=== PATIENT | female | born 1940 | race Caucasian/White ===

== ENCOUNTER 2017-03-10 13:02 | Emergency (ER) ==
--- NOTE | 2017-03-10 13:14 | ED.PDOC ---
General ED Provider: Dr. NORTH PAREDES Chief Complaint: Earache Stated Complaint: ear pain left, denatl pain Time Seen by Physician: 01:05 Exam Limitations: No limitations Primary Care Provider: AUSTIN TELLES Nursing and Triage Documentation Reviewed and Agree: Yes EENT Complaint Exam - Dental/Oral Complaint/Exam Mechanism of Injury: No known trauma Onset/Duration: 1 day tooth broke off Symptoms Are: Still present Timing: Constant Initial Severity: Moderate Character: Reports: Aching, Throbbing Aggravating: Reports: Heat, Cold, Chewing Alleviating: Reports: None Associated Signs and Symptoms: Denies: Swelling, Discharge, Fever, Foul odor, Foul taste in mouth Related History: Reports: Similar episode Cardiac Risk Factors: Reports: None Dental/Oral Surgical History: Reports: None Tooth Findings: Present: Gross caries Cervical Lymphadenopathy Present: No Facial Swelling Present: No Bleeding Present: No Oropharynx Findings: Absent: Clots, Active bleeding Septal Hematoma: No Foreign Body Present: No Dysphagia Present: No Drooling Present: No Asymmetrical Tonsillar Swelling Present: No Uvula Midline: Yes Carolin-tonsillar Fluctuence: No Trismus Present: No Palatal Petechiae Present: No Scarlatinaform Rash Present: No Teeth Picture: 1 - decay Differential Diagnoses: Dental Caries, Fractured Tooth Review of Systems - Review Of Systems Constitutional: Reports: No symptoms Eyes: Reports: No symptoms Ears, Nose, Mouth, Throat: Reports: Ear pain (left) Respiratory: Reports: No symptoms Cardiac: Reports: No symptoms GI: Reports: No symptoms : Reports: No symptoms Musculoskeletal: Reports: No symptoms Skin: Reports: No symptoms Neurological: Reports: No symptoms Endocrine: Reports: No symptoms Hematologic/Lymphatic: Reports: No symptoms All Other Systems: Reviewed and Negative Past Medical History - Past Medical History Previously Healthy: No Endocrine: Reports: Dyslipidemia Cardiovascular: Reports: CAD Respiratory: Reports: None Hematological: Reports: None Gastrointestinal: Reports: GERD Genitourinary: Reports: None Neuro/Psych: Reports: None Musculoskeletal: Reports: None Cancer: Reports: None - Surgical History General Surgical History: Reports: None - Family History Family History: Reports: None - Social History Hx Substance Use: No Physical Exam - Physical Exam Appearance: Well-appearing, No pain distress, Well-nourished Eyes: FRAN, EOMI, Conjunctiva clear ENT: Ears normal, Nose normal, Oropharynx normal Respiratory: Airway patent, Breath sounds clear, Breath sounds equal, Respirations nonlabored Cardiovascular: RRR, Pulses normal, No rub, No murmur GI/: Soft, Nontender, No masses, Bowel sounds normal, No Organomegaly Musculoskeletal: Normal strength, ROM intact, No edema, No calf tenderness Skin: Warm, Dry, Normal color Neurological: Sensation intact, Motor intact, Reflexes intact, Cranial nerves intact, Alert, Oriented Psychiatric: Affect appropriate, Mood appropriate Critical Care Note - Critical Care Note Total Time (mins): 0 Departure - Departure Time of Disposition: 13:13 Disposition: HOME SELF-CARE Discharge Problem: Pain, dental Instructions: Toothache (ED) Condition: Good Pt referred to PMD for follow-up: Yes Additional Instructions: Please call your Family Physician as soon as possible to schedule a follow-up appointment. Prescriptions: Hydrocodone/Acetaminophen [[place] 10-325 Tablet] 1 each PO Q8HR #12 tablet Azithromycin [Zithromax] 250 mg PO DIRECTED #6 tablet Allergies/Adverse Reactions: Allergies bacitracin [From Neosporin ([id number])] Adverse Reaction (Unverified 13:45) bacitracin zinc [From Neosporin ([id number])] Adverse Reaction (Unverified 13:45) neomycin sulfate [From Neosporin ([id number])] Adverse Reaction (Unverified 02/25/15 13:45) Penicillins Adverse Reaction (Unverified 02/25/15 13:45) polymyxin B [From Neosporin ([id number])] Adverse Reaction (Unverified 13:45) TAPE Adverse Reaction (Uncoded 02/25/15 13:45) Home Medications: Ambulatory Orders Amlodipine Besylate 03/01/15 Cholecalciferol (Vitamin D3) [Vitamin D] 03/01/15 Esomeprazole Magnesium [Nexium] 03/01/15 Furosemide [Lasix] 03/01/15 Lorazepam [Ativan] 03/01/15 [place]-3 Fatty Acids [Fish Oil] 03/01/15 Potassium Chloride 03/01/15 Pravastatin Sodium 03/01/15 Quinapril HCl 03/01/15 Azithromycin [Zithromax] 250 mg PO DIRECTED #6 tablet 03/10/17 Hydrocodone/Acetaminophen [[place] 10-325 Tablet] 1 each PO Q8HR #12 tablet
[2017-03-10 13:17] VITALS: BP 137/76; TEMP 98; BMI 32.8
== END 2017-03-10 13:25 | disposition home or self-care (01) ==
LOC: ED 13:02
DX: K08.89 Other specified disorders of teeth and supporting structures (principal); K02.7 Dental root caries; S02.5XXA Fracture of tooth (traumatic), initial encounter for closed fracture
CPT/HCPCS: 99282

== ENCOUNTER 2017-03-19 10:49 | Outpatient (RCR) ==
[2017-03-19 11:39] VITALS: BMI 33.7
[2017-04-05 11:40] VITALS: BP 146/58
== END 2017-04-06 ==
LOC: CAR.REHAB 10:49
PROVIDERS: ATTEND Internal Medicine
DX: Z95.1 Presence of aortocoronary bypass graft (principal)
CPT/HCPCS: 93798

== ENCOUNTER 2017-04-24 20:23 | Emergency (ER) ==
[2017-04-24 20:28] VITALS: BP 187/74; TEMP 97.2; BMI 31.8
[2017-04-24] MEDS ORDERED: CATAPRES PO STA (20:33)
[2017-04-24] MEDS ORDERED: NORVASC PO STA (20:33)
--- NOTE | 2017-04-24 21:47 | ED.PDOC ---
General ED Provider: Dr. ANNIE GUTIERREZ-ER Chief Complaint: Hypertension Stated Complaint: my bp was up--im not having chest pain or rodriguez--i had dental surgery today and my dentist told me to go to the er Time Seen by Physician: 20:25 Mode of Arrival: Walk-In Information Source: Patient Exam Limitations: No limitations Primary Care Provider: AUSTIN TELLES Nursing and Triage Documentation Reviewed and Agree: Yes Cardiovascular Complaint Exam - Hypertension Complaint/Exam Onset/Duration: 204/85 Symptoms Are: Still present Timing: Constant Reported B/P Prior to Arrival: as above Aggravating: Reports: None Alleviating: Reports: None Associated Signs and Symptoms: Reports: Anxiety, Recent stress. Denies: Chest pain, Vision changes, Headache, Numbness, Tingling, Weakness, Dizziness, Short of air, Swelling Related History: Reports: Current Fabio Inhibitors, Current Beta Lebron Recent Change in Medications: No A/V [place]: No Papilledema Present: No JVD Present: No Carotid Bruit Present: No Femoral Pulses Bounding: Yes Differential Diagnoses: Hypertension Review of Systems - Review Of Systems Constitutional: Reports: No symptoms Eyes: Reports: No symptoms Ears, Nose, Mouth, Throat: Reports: No symptoms Respiratory: Reports: No symptoms Cardiac: Reports: No symptoms GI: Reports: No symptoms : Reports: No symptoms Musculoskeletal: Reports: No symptoms Skin: Reports: No symptoms Neurological: Reports: No symptoms Endocrine: Reports: No symptoms Hematologic/Lymphatic: Reports: No symptoms All Other Systems: Reviewed and Negative Past Medical History - Past Medical History Previously Healthy: No Endocrine: Reports: Dyslipidemia Cardiovascular: Reports: CAD Respiratory: Reports: None Hematological: Reports: None Gastrointestinal: Reports: GERD Genitourinary: Reports: None Neuro/Psych: Reports: None Musculoskeletal: Reports: None Cancer: Reports: None Last Menstrual Period: na - Surgical History General Surgical History: Reports: None - Family History Family History: Reports: None - Social History Smoking Status: Former smoker Hx Substance Use: No Alcohol Screening: None Lives: With family - Immunizations Tetanus Shot up to Date: No Physical Exam - Physical Exam Appearance: Well-appearing, No pain distress, Well-nourished Eyes: FRAN, EOMI, Conjunctiva clear ENT: Ears normal, Nose normal, Oropharynx normal Neck: Supple Respiratory: Airway patent, Breath sounds clear, Breath sounds equal, Respirations nonlabored Cardiovascular: RRR, Pulses normal, No rub, No murmur GI/: Soft Musculoskeletal: Normal strength, ROM intact, No edema, No calf tenderness Skin: Warm, Dry, Normal color Neurological: Sensation intact, Motor intact, Reflexes intact, Cranial nerves intact, Alert, Oriented Psychiatric: Affect appropriate, Mood appropriate, Anxious Re-Evaluation - Re-Evaluation Time of Re-Evaluation: 21:47 Status: Improved (bp 160/84--no chest pain or rodriguez) Vital Signs Stable: Yes Pain Level: 0 Appearance: NAD Lungs: Clear Skin: Warm and Dry Neuro: Alert and Oriented X3 CV: RRR Critical Care Note - Critical Care Note Total Time (mins): 0 Course - Course Orders, Labs, Meds: Orders Category Date Time 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] .ONCE EMERGENCY 04/24/17 20:34 Active Amlodipine Besylate [Norvasc] MEDS 04/24/17 20:33 Discontinued 2.5 mg PO ONCE STA Clonidine HCl [Catapres] MEDS 04/24/17 20:33 Discontinued 0.1 mg PO ONCE STA Medications Discontinued Medications Generic Name Dose Route Start Last Admin Trade Name Freq PRN Reason Stop Dose Admin Amlodipine Besylate 2.5 mg 04/24/17 20:33 04/24/17 20:40 Norvasc PO 04/24/17 20:34 2.5 mg ONCE STA Administration Clonidine 0.1 mg 04/24/17 20:33 04/24/17 20:40 Catapres PO 04/24/17 20:34 0.1 mg ONCE STA Administration Vital Signs: Temp Pulse Resp BP Pulse Ox 04/24/17 20:23 97.2 F L 65 16 187/74 H 94 L DAVID Risk Score DAVID Risk Score: Risk Score Odds of by 30D 0 0.1 (0.1-0.2) 1 0.3 (0.2-0.3) 2 0.4 (0.3-0.5) 3 0.7 (0.6-0.9) 4 1.2 (1.0-1.5) 5 2.2 (1.9-2.6) 6 3.0 (2.5-3.6) 7 4.8 (3.8-6.1) Departure - Departure Time of Disposition: 21:47 Disposition: HOME SELF-CARE Discharge Problem: HTN (hypertension) Qualifiers: Hypertension type: essential hypertension Qualified Code(s): I10 - Essential ( primary) hypertension Instructions: Chronic Hypertension (ED) Condition: Good Pt referred to PMD for follow-up: Yes Additional Instructions: monitor bp at home--f/u with dr espinoza office tomorrow--return if any rodriguez or chest pain Allergies/Adverse Reactions: Allergies bacitracin [From Neosporin ([id number])] Adverse Reaction (Verified 04/24/17 20:34) bacitracin zinc [From Neosporin ([id number])] Adverse Reaction (Verified 20:34) neomycin sulfate [From Neosporin ([id number]-[id number])] Adverse Reaction (Verified 20:34) Penicillins Adverse Reaction (Verified 04/24/17 20:34) polymyxin B [From Neosporin ([id number])] Adverse Reaction (Verified 20:34) TAPE Adverse Reaction (Uncoded 02/25/15 13:45) Home Medications: Ambulatory Orders Amlodipine Besylate 03/01/15 Cholecalciferol (Vitamin D3) [Vitamin D] 03/01/15 Esomeprazole Magnesium [Nexium] 03/01/15 Furosemide [Lasix] 03/01/15 Lorazepam [Ativan] 03/01/15 [place]-3 Fatty Acids [Fish Oil] 03/01/15 Potassium Chloride 03/01/15 Pravastatin Sodium 03/01/15 Quinapril HCl 03/01/15 Azithromycin [Zithromax] 250 mg PO DIRECTED #6 tablet 03/10/17 Hydrocodone/Acetaminophen [[place] 10-325 Tablet] 1 each PO Q8HR #12 tablet Disposition Discussed With: Patient
== END 2017-04-24 21:52 | disposition home or self-care (01) ==
LOC: ED 20:23
DX: I10 Essential (primary) hypertension (principal); E78.5 Hyperlipidemia, unspecified; I25.10 Atherosclerotic heart disease of native coronary artery without angina pectoris; Z98.890 Other specified postprocedural states; Z79.899 Other long term (current) drug therapy
CPT/HCPCS: 99283

== ENCOUNTER 2017-05-08 09:05 | Outpatient (RCR) ==
[2017-06-03 11:49] VITALS: BP 118/56
== END 2017-06-06 ==
LOC: CAR.REHAB 09:05
PROVIDERS: ATTEND Internal Medicine
DX: Z95.1 Presence of aortocoronary bypass graft (principal)
CPT/HCPCS: 93798

== ENCOUNTER 2017-06-07 06:47 | Outpatient (RCR) ==
[2017-06-24 11:49] VITALS: BP 118/52
== END 2017-07-07 ==
LOC: CAR.REHAB 06:47
PROVIDERS: ATTEND Internal Medicine
DX: Z95.1 Presence of aortocoronary bypass graft (principal)
CPT/HCPCS: 93798

== ENCOUNTER 2017-07-09 08:14 | Outpatient (RCR) | payer OTHER ==
[2017-08-05 11:45] VITALS: BP 136/58
== END 2017-08-07 ==
LOC: CAR.REHAB 08:14
PROVIDERS: ATTEND Internal Medicine
DX: Z95.1 Presence of aortocoronary bypass graft (principal)
CPT/HCPCS: 93798

== ENCOUNTER 2017-08-08 07:27 | Outpatient (RCR) | payer OTHER ==
[2017-08-28 11:44] VITALS: BP 128/54
== END 2017-09-04 ==
LOC: CAR.REHAB 07:27
PROVIDERS: ATTEND Internal Medicine
DX: Z95.1 Presence of aortocoronary bypass graft (principal)
CPT/HCPCS: 93798

== ENCOUNTER 2017-09-05 08:23 | Outpatient (RCR) | payer OTHER ==
[2017-09-10 13:14] VITALS: BP 138/52
== END 2017-09-10 12:30 | disposition home or self-care (01) ==
LOC: CAR.REHAB 08:23
PROVIDERS: ATTEND Internal Medicine
DX: Z95.1 Presence of aortocoronary bypass graft (principal)
CPT/HCPCS: 93798

== ENCOUNTER 2017-09-13 10:59 | Outpatient (RCR) ==
[2017-10-04 11:48] VITALS: BP 128/62
== END 2017-10-05 ==
LOC: CAR.REHAB 10:59
PROVIDERS: ATTEND Internal Medicine
DX: I25.810 Atherosclerosis of coronary artery bypass graft(s) without angina pectoris (principal)
CPT/HCPCS: 93797

== ENCOUNTER 2017-10-07 06:59 | Outpatient (RCR) ==
[2017-11-04 11:51] VITALS: BP 136/56
== END 2017-11-04 23:59 ==
LOC: CAR.REHAB 06:59
PROVIDERS: ATTEND Internal Medicine
DX: Z95.1 Presence of aortocoronary bypass graft (principal)
CPT/HCPCS: 93797; 93798

== ENCOUNTER 2017-11-05 08:27 | Outpatient (RCR) ==
[2017-11-29 11:54] VITALS: BP 126/70
== END 2017-12-05 23:59 ==
LOC: CAR.REHAB 08:27
PROVIDERS: ATTEND Internal Medicine
DX: I25.810 Atherosclerosis of coronary artery bypass graft(s) without angina pectoris (principal)
CPT/HCPCS: 93797

== ENCOUNTER 2017-12-06 07:29 | Outpatient (RCR) ==
[2018-01-03 11:52] VITALS: BP 136/62
== END 2018-01-04 23:59 ==
LOC: CAR.REHAB 07:29
PROVIDERS: ATTEND Internal Medicine
DX: I25.810 Atherosclerosis of coronary artery bypass graft(s) without angina pectoris (principal)
CPT/HCPCS: 93797

== ENCOUNTER 2018-01-06 07:20 | Outpatient (RCR) ==
[2018-02-03 11:51] VITALS: BP 138/54
== END 2018-02-04 23:59 ==
LOC: CAR.REHAB 07:20
PROVIDERS: ATTEND Internal Medicine
DX: I25.810 Atherosclerosis of coronary artery bypass graft(s) without angina pectoris (principal)
CPT/HCPCS: 93797

== ENCOUNTER 2018-02-05 07:30 | Outpatient (RCR) ==
[2018-03-07 11:42] VITALS: BP 140/58
== END 2018-03-07 23:59 ==
LOC: CAR.REHAB 07:30
PROVIDERS: ATTEND Internal Medicine
DX: I25.810 Atherosclerosis of coronary artery bypass graft(s) without angina pectoris (principal)
CPT/HCPCS: 93797

== ENCOUNTER 2018-03-11 09:18 | Outpatient (RCR) ==
[2018-04-04 11:40] VITALS: BP 140/56
== END 2018-04-06 23:59 ==
LOC: CAR.REHAB 09:18
PROVIDERS: ATTEND Internal Medicine
DX: I25.810 Atherosclerosis of coronary artery bypass graft(s) without angina pectoris (principal)
CPT/HCPCS: 93797

== ENCOUNTER 2018-04-07 07:33 | Outpatient (RCR) ==
[2018-05-05 11:42] VITALS: BP 124/56
== END 2018-05-07 23:59 ==
LOC: CAR.REHAB 07:33
PROVIDERS: ATTEND Internal Medicine
DX: I25.810 Atherosclerosis of coronary artery bypass graft(s) without angina pectoris (principal)
CPT/HCPCS: 93797

== ENCOUNTER 2018-04-29 07:17 | Day surgery (SDC) | payer OTHER ==
[2018-04-29] MEDS ORDERED: LIDOCAINE 1% 20 ML MDV ID STA (07:35)
[2018-04-29] MEDS ORDERED: DIPRIVAN 20 ML VIAL IVP ONE (08:43)
[2018-04-29] MEDS ORDERED: ROBINOL ONE (08:43)
[2018-04-29] MEDS ORDERED: SUBLIMAZE ONE (08:43)
[2018-04-29 16:05] VITALS: BP 128/66; TEMP 98.5
--- NOTE | 2018-04-30 10:28 | OP ---
INDICATIONS FOR PROCEDURE: 78-year-old female presents for surveillance colonoscopy exam. She last had a colonoscopy finding eight adenomatous polyps three years ago. MEDICATIONS: SEE ANESTHESIA NOTES. PROCEDURE: COLONOSCOPY, SNARE POLYPECTOMY. REPORT: The risks, benefits, alternatives and limitations were discussed in detail with the patient. Informed consent was obtained. After adequate sedation was achieved, a digital rectal exam revealed good tone, no masses. The colonoscope was introduced into the rectum and advanced under direct visual guidance to the cecum. The cecum was identified by the appendiceal orifice and IC valve. I then slowly withdrew the scope in a circumferential manner examining the mucosa quite carefully. I looked on the proximal and distal side of folds and flexures as best as possible. I retroflexed the scope in the right colon and left colon to increase visualization. In the mid sigmoid colon there was a diminutive 4 to 5 mm polyp that I destroyed using a snare. There was moderate amount of large and small mouth diverticula scattered throughout the sigmoid colon. No other abnormalities were noted including on retroflex view of the anal canal. The prep was good. Withdrawal time is 11 minutes and 7 seconds. The patient tolerated the procedure well with stable vital signs and pulse oximetry throughout. IMPRESSION: 1. DIMINUTIVE POLYP DESTROYED 2. DIVERTICULOSIS RECOMMENDATIONS: 1. High fiber diet. 2. Office visit as needed. 3. Colonoscopy examination again in 5 years if she is clinically well, sooner if signs or symptoms would indicate otherwise. CC: DR. ELFEGO SMITH
== END 2018-04-29 09:22 | disposition home or self-care (01) ==
LOC: SURG 07:17
PROVIDERS: ATTEND Internal Medicine Gastroenterology
DX: Z86.010 Personal history of colon polyps (principal); K63.5 Polyp of colon
CPT/HCPCS: 00812; G0105; 93005; 93010

== ENCOUNTER 2018-06-09 07:13 | Outpatient (RCR) ==
[2018-07-07 11:44] VITALS: BP 130/54
== END 2018-07-07 23:59 ==
LOC: CAR.REHAB 07:13
PROVIDERS: ATTEND Internal Medicine
DX: I25.810 Atherosclerosis of coronary artery bypass graft(s) without angina pectoris (principal)
CPT/HCPCS: 93797; 93798

== ENCOUNTER 2018-07-09 07:52 | Outpatient (RCR) ==
[2018-08-01 11:44] VITALS: BP 124/52
== END 2018-08-07 23:59 ==
LOC: CAR.REHAB 07:52
PROVIDERS: ATTEND Internal Medicine
DX: I25.810 Atherosclerosis of coronary artery bypass graft(s) without angina pectoris (principal)
CPT/HCPCS: 93797

== ENCOUNTER 2018-08-08 06:57 | Outpatient (RCR) ==
[2018-09-01 11:45] VITALS: BP 100/50
== END 2018-09-04 23:59 ==
LOC: CAR.REHAB 06:57
PROVIDERS: ATTEND Internal Medicine
DX: I25.810 Atherosclerosis of coronary artery bypass graft(s) without angina pectoris (principal)
CPT/HCPCS: 93797

== ENCOUNTER 2018-09-05 06:37 | Outpatient (RCR) ==
[2018-09-29 11:49] VITALS: BP 126/60
== END 2018-10-05 23:59 ==
LOC: CAR.REHAB 06:37
PROVIDERS: ATTEND Internal Medicine
DX: I25.810 Atherosclerosis of coronary artery bypass graft(s) without angina pectoris (principal)
CPT/HCPCS: 93797

== ENCOUNTER 2018-10-06 08:15 | Outpatient (RCR) ==
[2018-11-03 11:43] VITALS: BP 126/54
== END 2018-11-04 23:59 ==
LOC: CAR.REHAB 08:15
PROVIDERS: ATTEND Internal Medicine
DX: I25.810 Atherosclerosis of coronary artery bypass graft(s) without angina pectoris (principal)
CPT/HCPCS: 93797

== ENCOUNTER 2018-10-27 11:53 | Outpatient (CLI) | END 2018-10-27 11:54 | disposition home or self-care (01) | LOC: RAD 11:53 | PROVIDERS: ATTEND Internal Medicine | DX: Z12.31 Encounter for screening mammogram for malignant neoplasm of breast (principal) ==

== ENCOUNTER 2018-11-05 07:44 | Outpatient (RCR) ==
[2018-12-05 11:47] VITALS: BP 130/60
== END 2018-12-05 23:59 ==
LOC: CAR.REHAB 07:44
PROVIDERS: ATTEND Internal Medicine
DX: I25.810 Atherosclerosis of coronary artery bypass graft(s) without angina pectoris (principal)
CPT/HCPCS: 93797

== ENCOUNTER 2019-02-05 08:39 | Outpatient (RCR) ==
[2019-03-02 11:52] VITALS: BP 138/62
== END 2019-03-07 23:59 ==
LOC: CAR.REHAB 08:39
PROVIDERS: ATTEND Internal Medicine
DX: I25.810 Atherosclerosis of coronary artery bypass graft(s) without angina pectoris (principal)
CPT/HCPCS: 93797

== ENCOUNTER 2022-08-07 15:51 | Inpatient (IN) ==
--- NOTE | 2022-08-07 16:03 | ED.PDOC ---
General ED Provider: Dr. 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, no loc, gcs 15, no neck pain, no bleeding, on home oxygen prn, hx obese, copd and htn Time Seen by Provider: 08/07/22 15:56 Mode of Arrival: Ambulance Information Source: Patient Primary Care Provider: AUSTIN TELLES MD Nursing and Triage Documentation Reviewed and Agree: Yes Does patient meet sepsis criteria?: No System Inflammatory Response Syndrome: Not Applicable Sepsis Protocol: For patient's 13 years and over: Temp is 96.8 and below OR 101 and greater Pulse >90 BPM Resp >20/minute Acutely Altered Mental Status Are patient's symptoms suggestive of a new infection, such as: -Pneumonia -Skin, Soft Tissue -Endocarditis -UTI -Bone, Joint Infection -Implantable Device -Acute Abdominal Infection -Wound Infection -Meningitis -Blood Stream Catheter Infection -Unknown Review of Systems Review Of Systems Constitutional: Denies Fever Eyes: Denies Vision change Ears, Nose, Mouth, Throat: Denies Epistaxis Respiratory: Denies Short of air Cardiac: Denies Chest pain GI: Denies Abdominal pain or Vomiting : Denies Frequency Musculoskeletal: Reports Joint pain Skin: Reports Bruising Neurological: Denies Cognitive dysfunction All Other Systems: Other [facility] Social History Smoking and tobacco status: Former smoker Female Reproductive History Menstrual Hx Hysterectomy: Yes (1973) Hx Tubal Ligation: No Physical Exam Physical Exam Appearance: Reports Obese Ill-appearing: None Pain Distress: Mild Eyes: Reports FRAN, EOMI and Conjunctiva clear ENT: Reports Oropharynx normal; Denies Epistaxis Neck: Supple Respiratory: Reports Airway patent and Breath sounds equal Cardiovascular: Reports RRR GI/: Reports Soft and Nontender Musculoskeletal: Reports Limited ROM and Other (tender right wrist and hips, sen and pulses intact); Denies Calf tenderness Skin: Reports Warm and Dry Neurological: Reports Alert and Oriented Psychiatric: Reports Affect appropriate Interpretation Radiology Interpretation Radiology Interpretation By: Radiologist Xray Comments: +nondispl fx right wrist, no fx hips, nap cxr Radiology Interpretation By: Radiologist Exam Interpreted: CT Scan Xray Comments: no brain bleed EKG Interpretation Time of EKG #1: 18:04 Rate: Normal Rhythm: Sinus Ectopy: PVCs Interpretation: no stemi Critical Care Note Critical Care Note Total Critical Care Time (mins): 0 Course Course Hematology/Chemistry: 08/07/22 16:12 08/07/22 16:12 Orders, Labs, Meds: Lab Review 08/07/22 08/07/22 08/07/22 16:12 16:12 16:12 WBC 6.26 RBC 4.37 Hgb 12.4 Hct 39.2 MCV 89.7 MCH 28.4 MCHC 31.6 L RDW Coeff of Cathy 15.2 H Plt Count 179 Immature Gran % (Auto) 0.3 Neut % (Auto) 75.1 Lymph % (Auto) 11.2 [place] % (Auto) 7.0 Eos % (Auto) 6.1 Baso % (Auto) 0.3 Neut # (Auto) 4.7 Lymph # (Auto) 0.7 [place] # (Auto) 0.4 Eos # (Auto) 0.4 Baso # (Auto) 0.0 Immature Gran # (Auto) 0.0 PT 10.8 INR 1.04 Puncture Site Base Excess O2 Saturation ABG pH ABG pCO2 ABG pO2 ABG HCO3 ABG Total CO2 Dung Test Hemoglobin Oxyhemoglobin Carboxyhemoglobin Total Hemoglobin FiO2 % Sodium 137.3 Potassium 3.62 Chloride 103.3 Carbon Dioxide 27.1 Anion Gap 10.52 BUN 21.5 H Creatinine 0.94 Estimated GFR (MDRD) 57.00 BUN/Creatinine Ratio 22.87 Glucose 127.4 H Lactic Acid Calcium 8.82 Total Bilirubin 0.58 AST 32.3 ALT 20.6 Alkaline Phosphatase 40.4 L Total Creatine Kinase 611.5 H CK-MB (CK-2) 3.440 H CK-MB (CK-2) % 0.5600 Troponin I 0.017 Total Protein 6.44 Albumin 3.87 Globulin 2.57 Albumin/Globulin Ratio 1.50 SARS CoV-2 RNA Rapid SARAH 08/07/22 08/07/22 08/07/22 16:12 16:15 16:15 WBC RBC Hgb Hct MCV MCH MCHC RDW Coeff of Cathy Plt Count Immature Gran % (Auto) Neut % (Auto) Lymph % (Auto) [place] % (Auto) Eos % (Auto) Baso % (Auto) Neut # (Auto) Lymph # (Auto) [place] # (Auto) Eos # (Auto) Baso # (Auto) Immature Gran # (Auto) PT INR Puncture Site Rbrach Base Excess 6.4 H O2 Saturation 89.4 L ABG pH 7.44 ABG pCO2 45.0 ABG pO2 55.0 L* ABG HCO3 30.6 H ABG Total CO2 32.0 H Dung Test Pos Hemoglobin 0.5 Oxyhemoglobin 88.0 L Carboxyhemoglobin 1.6 H Total Hemoglobin 12.5 FiO2 % 21.0 Sodium Potassium Chloride Carbon Dioxide Anion Gap BUN Creatinine Estimated GFR (MDRD) BUN/Creatinine Ratio Glucose Lactic Acid 2.41 H Calcium Total Bilirubin AST ALT Alkaline Phosphatase Total Creatine Kinase CK-MB (CK-2) CK-MB (CK-2) % Troponin I Total Protein Albumin Globulin Albumin/Globulin Ratio SARS CoV-2 RNA Rapid SARAH Negative Orders Category Date Time Status ABG DRAW REQUEST Stat CARDIO 08/07/22 15:56 Completed EKG-(ED ONLY) Stat CARDIO 08/07/22 15:56 Completed OXYGEN [ED APPLY O2] .ONCE EMERGENCY 08/07/22 15:56 Active ABG COOX Stat LAB 08/07/22 16:15 Completed CBC W/ AUTO DIFF Stat LAB 08/07/22 16:12 Completed CMP [COMPREHENSIVE METABOLIC PANEL] Stat LAB 08/07/22 16:12 Completed CPK [CREATINE KINASE] Stat LAB 08/07/22 16:12 Completed LACTIC ACID Stat LAB 08/07/22 16:12 Completed PT WITH INR Stat LAB 08/07/22 16:12 Completed SARS COV-2 RNA RAPID SARAH Stat LAB 08/07/22 16:15 Completed TROPONIN I Stat LAB 08/07/22 16:12 Completed URINALYSIS C & S IF INDICATED Stat LAB 08/07/22 17:30 Received Sodium Chloride 0.9% [Sodium Chloride] 1,000 ml MEDS 08/07/22 16:41 Discontinued IV BOLUS CHEST, 1V AP ONLY Stat RADS 08/07/22 15:[address] HEAD W/O CONTRAST Stat RADS 08/07/22 15:56 Completed PELVIS & DEEPIKA HIPS Stat RADS 08/07/22 15:56 Completed WRIST, RIGHT 3 VIEWS Stat RADS 08/07/22 15:56 Completed Medications Discontinued Medications Generic Name Dose Route Start Last Admin Trade Name Freq PRN Reason Stop Dose Admin Sodium Chloride 1,000 mls @ 1,000 mls/hr 08/07/22 16:41 08/07/22 16:57 Sodium Chloride IV 08/07/22 17:40 1,000 mls/hr BOLUS STA Administration Vital Signs: Temp Pulse Resp BP Pulse Ox 08/07/22 15:53 98.3 F 65 20 147/57 H 92 L Discharge Plan Discharge Patient Disposition: ADMITTED INPATIENT Prescriptions: No Action furosemide [Lasix] 20 MG tablet 20 mg PO DAILY esomeprazole magnesium [Nexium] 20 MG capsule,delayed release(DR/EC) 20 mg PO DAILY potassium chloride 10 MEQ tablet,ER particles/crystals 10 meq PO DAILY amlodipine 5 MG tablet 5 mg PO DAILY lorazepam [Ativan] 0.5 MG tablet 0.5 mg PO DAILY cholecalciferol (vitamin D3) [Vitamin D3] 1,000 UNIT capsule 1,000 mg PO DAILY Fish Oil 300 MG capsule 1 mg PO DAILY hydrocodone-acetaminophen [[place]] 1 EACH tablet 1 ea PO Q8HR Qty: 12 0RF Did you review [place] MACHINE FEEDER for ALL controlled substances?: Not Applicable ED Provider: SOPHIA SHEA Condition: Stable Physician Progress Note: Dr Telles advised to admit pt to hospitalist []
[2022-08-07 16:24] LABS: BASOPHILS % (AUTO) 0.3 % (0.0-3.0); EOSINOPHILS # (AUTO) 0.4 K/ul (0.0-0.7); EOSINOPHILS % (AUTO) 6.1 % (0.0-7.0); HEMATOCRIT 39.2 % (37.0-47.0); HEMOGLOBIN 12.4 g/dl (12.0-16.0); IMMATURE GRANULOCYTE % (AUTO) 0.3 % (0.0-5.0); LYMPHOCYTES # (AUTO) 0.7 K/uL (0.60-3.4); LYMPHOCYTES % (AUTO) 11.2 (10.0-50.0); MEAN CORPUSCULAR HEMOGLOBIN 28.4 pg (27.0-31.0); MEAN CORPUSCULAR HGB CONC 31.6 (31.8-35.4); MEAN CORPUSCULAR VOLUME 89.7 fl (81.0-99.0); MONOCYTES # (AUTO) 0.4 K/uL (0.4-2.0); NEUTROPHILS # (AUTO) 4.7 K/ul (2.0-6.9); NEUTROPHILS % (AUTO) 75.1 % (42.2-75.2); PLATELET COUNT 179 10^3/uL (140-440); RDW COEFFICIENT OF VARIATION 15.2 % (11.6-14.8); RED BLOOD COUNT 4.37 10^6/ul (4.20-5.40); WHITE BLOOD COUNT 6.26 K/ul (4.6-10.2)
[2022-08-07 16:26] LABS: ABG PH 7.44 (7.35-7.45); BEecf 6.4 (-2.0-3.0); COHb 1.6 (0.5-1.5); HCO3 30.6 (21-28); MetHb 0.5 (0-1.5); sO2 89.4 % (94-98); tHb 12.5 g/dl (11.7-17.4)
[2022-08-07 16:36] LABS: PROTHROMBIN TIME 10.8 SEC (9.3-11.0)
[2022-08-07 16:38] LABS: ALANINE AMINOTRANSFERASE 20.6 U/L (0-35); ALBUMIN 3.87 g/dL (3.5-5.0); ALKALINE PHOSPHATASE 40.4 U/L (53-141); ASPARTATE AMINO TRANSFERASE 32.3 U/L (14-36); BILIRUBIN,TOTAL 0.58 mg/dL (0.2-1.3); BLOOD UREA NITROGEN 21.5 mg/dL (7-17); CALCIUM 8.82 mg/dL (8.4-10.2); CARBON DIOXIDE 27.1 mmol/L (22-30.0); CHLORIDE 103.3 mmol/L (98-107); CREATINE KINASE 611.5 U/L (30-135); CREATININE 0.94 mg/dL (0.60-1.30); GLUCOSE 127.4 mg/dL (74-106); POTASSIUM 3.62 mmol/L (3.5-5.1); SODIUM 137.3 mmol/L (134.5-145); TOTAL PROTEIN 6.44 g/dL (6.3-8.2)
[2022-08-07] MEDS ORDERED: SODIUM CHLORIDE 1,000 ML IV STA (16:41)
--- NOTE | 2022-08-07 16:48 | DI ---
EXAM: CHEST RADIOGRAPH (1 VIEW) TECHNIQUE: Frontal Chest Radiograph. HISTORY: Fall. COMPARISON: Chest radiograph 01/27/2020 FINDINGS: Lines, Tubes, Devices: Postsurgical changes of median sternotomy Lungs and Pleura: No focal consolidation. No pleural effusion. No pneumothorax. No pulmonary edema . Small calcified granuloma in the right lower lobe. Cardiomediastinum: Enlarged cardiomediastinal silhouette. Mild to moderate aortic calcifications. Bones/Soft Tissues: No acute osseous abnormality. No soft tissue abnormality. Upper Abdomen: Hiatal hernia. IMPRESSION: No acute radiographic abnormality. Cardiomegaly. Hiatal hernia.
--- NOTE | 2022-08-07 16:49 | DI ---
EXAM: Pelvis AP view, right hip lateral view, left hip lateral view HISTORY: Fall, hip pain FINDINGS: No fracture or dislocation. 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 No acu te soft tissue finding. IMPRESSION: 1. No fracture or joint dislocation.
--- NOTE | 2022-08-07 16:51 | DI ---
EXAM: RIGHT WRIST, 3 VIEWS HISTORY: Fall. COMPARISON: None available. FINDINGS: There is marked diffuse demineralization which limits sensitivity for detection of a nondisplaced fra cture. Transversely oriented region of sclerosis extending through the distal radius just proximal t o the articular surface of the radiocarpal joint and along the margin of the distal radioulnar joint, concerning for a nondisplaced fracture with minimal impaction. Cortical irregularity dorsally on th e lateral view at that level related to small fragment in the region of Stew's tubercle with 2 mm d isplacement. Soft tissue swelling throughout the wrist and distal forearm with abnormal appearance o f the pronator fat pad. Capsular swelling/effusion of the radiocarpal joint. 0.4 cm well corticated ossification projects along the soft tissues at the lateral/radial aspect of the scaphoid - trapeziu m articulation and could represent heterotopic ossification/dystrophic calcification versus sequela o ld trauma or loose body. Marked degenerative change at the first carpometacarpal joint with mild deg enerative spurring at the radiocarpal and midcarpal joints. No abnormal widening of the scapholunate or lunotriquetral intervals. No lunate/perilunate dislocation. IMPRESSION: Suspected nondisplaced fracture with impaction involving the distal radius as detailed above with min imally-displaced fragment dorsally. Further assessment with CT imaging can be considered for further characterization. Marked demineralization. Degenerative change most severe at the first carpometacarpal joint. Well corticated ossification pro jects along the lateral aspect of the scaphoid - trapezium articulation could represent sequela old t rauma/loose body or heterotopic ossification/dystrophic calcification. This could also be further as sessed with cross-sectional imaging as clinically warrant. Soft tissue swelling.
[2022-08-07 16:53] LABS: CREATINE KINASE MB 3.44 ng/ml (0.0-2.38)
[2022-08-07 16:56] LABS: SARS COV-2 RNA RAPID NAAT NEGATIVE (NEGATIVE)
[2022-08-07 16:57] LABS: TROPONIN I 0.017 ng/ml (0.0000-0.120)
--- NOTE | 2022-08-07 17:01 | CT ---
EXAM: CT head without contrast. HISTORY: Head trauma. COMPARISON: 03/21/2022. TECHNIQUE: Multiple axial images of the brain were obtained from the skull base through the vertex w ithout intravenous contrast. Multiplanar reformats were provided. FINDINGS: There is no intracranial hemorrhage or extraaxial collection. The langley-white differentiat ion is maintained without evidence for acute large vascular territory infarction. Stable left cerebe llar encephalomalacia. There are areas of periventricular and subcortical white matter low attenuati on. The cortical sulci and cerebral ventricles are symmetrically enlarged. The basal cisterns are w ell visualized. There is no hydrocephalus, mass effect, or midline shift. The paranasal sinuses and mastoid air cells are clear. The calvarium is intact. Since the prior study, there has been no sig nificant interval change. IMPRESSION: 1. No acute intracranial abnormality. 2. Chronic small vessel ischemic changes and atrophy. All CT scans are performed using dose optimization techniques as appropriate to the performed exam an d include at least one of the following: Automated exposure control, adjustment of the mA and/or kV according t o size, and the use of iterative reconstruction technique.
[2022-08-07 17:55] LABS: BILIRUBIN,URINE Negative (NEGATIVE); CLARITY,URINE Cloudy (CLEAR); COLOR,URINE Yellow (YELLOW); GLUCOSE, URINE (UA) Negative (NEGATIVE); KETONES,URINE Negative (NEGATIVE); LEUKOCYTE ESTERASE ,URINE Trace (NEGATIVE); NITRITE,URINE Negative (NEGATIVE); PH,URINE 5.5 (5-9); PROTEIN,URINE Negative (NEGATIVE); URINE, BLOOD Negative (NEGATIVE); UROBILINOGEN,URINE 0.2 (0.2)
[2022-08-07 18:06] LABS: AMORPHOUS SEDIMENT,UR 2+ (NOT PRESENT); BACTERIA,URINE 2+ (NOT PRESENT); SQUAMOUS EPITHELIAL CELL,UR 30-50 (0-5)
[2022-08-07] MEDS ORDERED: TYLENOL PO PRN (18:07)
[2022-08-07 20:36] VITALS: BMI 37.5
[2022-08-07] MEDS: NORCO 10-325 PO SCH (20:55)
[2022-08-07] MEDS: SODIUM CHLORIDE 1,000 ML IV SCH (20:56)
[2022-08-07] MEDS: ALBUTEROL 0.083% NEB NEB SCH (22:20)
[2022-08-08 00:36] LABS: CREATINE KINASE 1190.5 U/L (30-135)
[2022-08-08 00:55] LABS: CREATINE KINASE MB 3.11 ng/ml (0.0-2.38)
[2022-08-08] MEDS: ALBUTEROL 0.083% NEB NEB SCH ×3 (04:40→21:35)
[2022-08-08] MEDS: NORCO 10-325 PO SCH ×3 (05:13→20:37)
[2022-08-08] MEDS: SODIUM CHLORIDE 1,000 ML IV SCH (06:12)
[2022-08-08] MEDS: ATIVAN PO SCH (08:08)
[2022-08-08] MEDS: NORVASC PO SCH (08:08)
[2022-08-08] MEDS: LASIX TAB PO SCH (08:08)
[2022-08-08] MEDS: PROTONIX PO SCH (08:08)
[2022-08-08] MEDS: VITAMIN D PO SCH (08:09)
[2022-08-08 08:10] LABS: BASOPHILS % (AUTO) 0.2 % (0.0-3.0); EOSINOPHILS # (AUTO) 0.4 K/ul (0.0-0.7); EOSINOPHILS % (AUTO) 8.7 % (0.0-7.0); HEMATOCRIT 36.7 % (37.0-47.0); HEMOGLOBIN 11.5 g/dl (12.0-16.0); IMMATURE GRANULOCYTE % (AUTO) 0.2 % (0.0-5.0); LYMPHOCYTES % (AUTO) 24.3 (10.0-50.0); MEAN CORPUSCULAR HEMOGLOBIN 28.6 pg (27.0-31.0); MEAN CORPUSCULAR HGB CONC 31.3 (31.8-35.4); MEAN CORPUSCULAR VOLUME 91.3 fl (81.0-99.0); MONOCYTES # (AUTO) 0.4 K/uL (0.4-2.0); MONOCYTES % (AUTO) 8.5 (0-10); NEUTROPHILS # (AUTO) 2.4 K/ul (2.0-6.9); NEUTROPHILS % (AUTO) 58.1 % (42.2-75.2); PLATELET COUNT 168 10^3/uL (140-440); RDW COEFFICIENT OF VARIATION 15.5 % (11.6-14.8); RED BLOOD COUNT 4.02 10^6/ul (4.20-5.40); WHITE BLOOD COUNT 4.12 K/ul (4.6-10.2)
[2022-08-08 08:21] LABS: ALBUMIN 3.46 g/dL (3.5-5.0); ASPARTATE AMINO TRANSFERASE 39.5 U/L (14-36); BILIRUBIN,TOTAL 0.59 mg/dL (0.2-1.3); BLOOD UREA NITROGEN 16.8 mg/dL (7-17); CALCIUM 8.1 mg/dL (8.4-10.2); CHLORIDE 106.7 mmol/L (98-107); CREATINE KINASE 749.8 U/L (30-135); CREATININE 0.86 mg/dL (0.60-1.30); GLUCOSE 117.3 mg/dL (74-106); SODIUM 139.4 mmol/L (134.5-145); TOTAL PROTEIN 6.05 g/dL (6.3-8.2)
[2022-08-08 08:37] LABS: POTASSIUM 3.23 mmol/L (3.5-5.1)
[2022-08-08 08:38] LABS: CREATINE KINASE MB 2.67 ng/ml (0.0-2.38)
[2022-08-08] MEDS ORDERED: MICRO-K CAP PO SCH (09:00)
[2022-08-08] MEDS ORDERED: OMEGA-3 FISH OIL PO SCH (09:00)
[2022-08-08] MEDS ORDERED: OMEGA PO SCH (09:00)
[2022-08-08] MEDS ORDERED: FATTY ACIDS PO SCH (09:00)
[2022-08-08] MEDS ORDERED: K-DUR PO ONE (09:22)
--- NOTE | 2022-08-08 09:34 | PCM.PROG ---
Date Seen by Provider: 08/08/22 Time Seen by Provider: 09:05 Subjective: Complains of weakness. Pulmonary status at baseline. Objective: Vitals: T=97.9 F, P=80, R=18, SC=445/62, SPO2=94 Chronically ill appearing. No respiratory distress. Appears comfortable, though weak. HEENT: [] Neck: [] Lungs: [] BS decreased bilaterally. Clear. CVS: [] RRR Abdomen: [] Extremities: [] Splint in place on right forearm. Hand with good cap refill. Neurological: [] Skin: [] Lab/Tests/Diagnostic Imaging: [] (1) COPD (chronic obstructive pulmonary disease): Status: Acute Code(s): J44.9 - Chronic obstructive pulmonary disease, unspecified SNOMED Code(s): 36524858 Assessment: COPD at baseline for patient. (2) Right wrist fracture: Status: Acute Code(s): S62.101A - Fracture of unspecified carpal bone, right wrist, initial encounter for closed fracture SNOMED Code(s): 625859612 Assessment: Stable. (3) Rhabdomyolysis: Status: Acute Code(s): M62.82 - Rhabdomyolysis SNOMED Code(s): 761873318 Assessment: CK remains elevated. BUN/creatinine normal. (4) Generalized weakness: Status: Acute Code(s): R53.1 - Weakness SNOMED Code(s): 24388544 Assessment: This is primary problem in addition to the COPD. (5) Acute hypokalemia: Status: Acute Code(s): E87.6 - Hypokalemia SNOMED Code(s): 17694313 Plan: PT to see for strengthening and conditioning. Replace potassium. Continue IV fluids and repeat CK, CK-MB in AM.
[2022-08-08] MEDS: SODIUM CHLORIDE 0.9%-KCL 20 MEQ 1,000 ML IV SCH ×2 (09:55→19:34)
--- NOTE | 2022-08-08 11:18 | RS.PTINEVL ---
Subjective - Patient information Date of Evaluation: 08/08/22 Date of Arrival on Unit: 08/07/22 Admitted From:: Home Diagnosis: fx R distal radius, hypoxia, rhabdomyolysis, s/p fall Usual Living Arrangement: With Others Living Arrangement Comments: lives at home and her son lives with her. pt is son's primary caregiver due to "mental issues" (per pt). Home Environment: House, Ramp Medical History: Hypertension, COPD, Arthritis Medical History Comments:: fx R wrist 08/07/22 Surgical History: Hysterectomy Medications: see chart Subjective Information/ Patient Comments:: pt reports she suffered a fall last night while trying to get out of bed. pt reports that her son lives with her but he is not any help. Reports she takes care of him. pt also reports she does have another son that does not live with her. pt states that to go home she will need to be able to do most things on her own. pt worried about her son being alone and needing groceries because she was going to go to the grocery today. - Level of function Prior to this admission, the patient could do the following:: Independent Selfcare, Independent Ambulation, Perform Student Services Coordinator/Cooking, Drive Abilities prior to this admission: pt amb without AD. pt does have a walk in shower (with lip to step over which she has fallen over x 2). pt states she has a BSC in the garage. Current Level of Function: Partially Dependent Current Equipment Used at Home: was not using equipment but has a BSC in garage from her mother. Interventions - Objective Patient Orientation: Person, Place, Time, Situation Current Interventions: IV's, Oxygen (2 liters), Telemetry Observation: pt with abrasions to B elbows and L knee due to falls. pt also with splint to R wrist due to fx Range of Motion - ROM Right Upper Extremity AROM: Moderate limitation (Shld, elbow WFL's wrist limited due to fx.) Left Upper Extremity AROM: WFL's Right Lower Extremity AROM: WFL's Left Lower Extremity AROM: WFL's Muscle Strength - Muscle Strength Right Upper Extremity Strength: Mild Weakness (shld flex 4-/5, elbow flex/ext 4/5, wrist not tested due to fx) Left Upper Extremity Strength: Mild Weakness (shld flex 4-/5, elbow flex 4/5) Right Lower Extremity Strength: Mild Weakness (hip flex 4-/5, knee flex/ext 4/5, ankle DF/PF 4/5) Left Lower Extremity Strength: Mild Weakness (hip flex 4-/5, knee flex/ext 4/5, ankle DF/PF 4/5) Sensation - Sensation Right Upper Extremity Sensation: Intact/Normal Left Upper Extremity Sensation: Intact/Normal Right Lower Extremity Sensation: Impaired Left Lower Extremity Sensation: Impaired (n/t due to neuropathy B feet) Palpation Palpation Findings: None/Normal Balance - Sitting Balance and Reactions Static Sitting Balance: Fair Dynamic Sitting Balance: Fair - Standing Balance and Reactions Static Standing Balance: Poor Dynamic Standing Balance: Poor - Comments Balance Assessment Comments: pt with tremors which effect balance at times Functional Mobility - Bed Mobility Rolling R/L: Min Assist, 1 person assist Supine to Sit: Min Assist, 1 person assist - Transfers Sit to Stand: Min Assist, 1 person assist, 2 person assist Stand to Sit: Min Assist, 1 person assist - Safety Awareness Safety Awareness: Fair [place] INDEX SCORE: n/a Ambulation - Ambulation Assistive Device Used: Platform Walker (platform rolling walker) Orthotic/Prosthetic Device: Yes (splint on R wrist ) Distance: 15ft x 2 Assistance needed with Ambulation: Min Assist, 1 person assist, 2 person assist Quality of Ambulation: pt amb with O2 2 liters Gait Deviations: Wide Based gait, Forward posture, Short stride Ambulation Comments: pt required assist at times for walker placement and technique, tremors noted. Factors Affecting Ambulation: Decreased Balance, Breathing/O2 Saturation, Weakness, Decreased Coordination, Decreased Safety, Limited Endurance Treatment time - Time with patient Length of Evaluation: 21 Total treatment time: 36 Patient Education - Education Patient Education: Activity Modification, Education of Plan of Care Teaching Recipient: Patient Teaching Methods: Discussion Comments: discussion regarding POC as well as needs at home. Assessment - Assessment Problem List:: Decreased level of function, Requires training/education, Decreased safety/Risk of falls, Weakness Rehab Potential: Good Further Therapy Indicated?: Yes Candidate for Swing Bed for Therapy Services?: Feel pt may be a candidate for swing bed depending on functional ability after 3 day stay. Feel pt will need help at home when dc due to son that lives with her is unable to help. Evaluation Complexity: HISTORY: Medium, EXAM OF BODY SYSTEMS: Medium, CLINICAL PRESENTATION: Medium, CLINICAL DECISION MAKING: Medium Patient's Goal(s): get stronger and go home and take care of myself and my son. Short Term Goals GOAL #1: pt demonstrate rolling and scooting in bed w bed rails and cues. Goal to be met by: 08/11/22 GOAL #2: Transfer sup to/from sit CGA x 1 Goal to be met by: 08/11/22 GOAL #3: Transfer sit to/from stand CGA x 1 Goal to be met by: 08/11/22 GOAL #4: pt amb with platform rolling walker 75ft with CGA to minx 1 Goal to be met by: 08/11/22 GOAL #5: Improve strength BLE 4 to 4+/5 Goal to be met by: 08/11/22 Licensed Embalmer Goals GOAL #1: pt transfer sup to/from sit to/from stand SBA Goal to be met by: 08/15/22 GOAL #2: pt amb with platform rwx functional household distances SBA Goal to be met by: 08/15/22 GOAL #3: Improve dyn stand balance fair Goal to be met by: 08/15/22 Plan Plan of Care: Therapeutic EX, Neuromuscular Re-Educ, Therapeutic Activity Other:: gait training Frequency of Treatment: 1-2 X day, as tolerated Duration of Treatment: 1 Week Anticipated Discharge Destination: undetermined Treatment Diagnosis (ICD 10 Codes): falls R 29.6, difficulty walking R 26.2, impaired balance R 26.81, weakness M62.81. R distal radius fracture Has the Physician been added for Co-signature?: Yes
--- NOTE | 2022-08-08 11:33 | RS.OTINEVL ---
Subjective - Patient information Date of Evaluation: 08/08/22 Date of Arrival on Unit: 08/07/22 Admitted From:: Home Diagnosis: Hypoxia, rhabdomylosis PRECAUTIONS: falls Usual Living Arrangement: With Others Living Arrangement Comments: lives at home and her son lives with her. pt is son's primary caregiver due to "mental issues" (per pt). Home Environment: House, Ramp Medical History: Hypertension, COPD, Arthritis Medical History Comments:: COPD, GERD, acute respiratory failure, right wrist fracture, generalized weakness, hypokalemia. 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 Pt was taking care of her youngest son. Current Level of Function: Partially Dependent Comments: Pt fractured the RUE wrist. Current Equipment Used at Home: was not using equipment but has a BSC in garage from her mother. Pain Assessment - Pain Pain Score: 0 Interventions - Objective Patient Orientation: Person, Situation Current Interventions: IV's Observation: Pt has a soft splint on RUE and is not able to use her digits. Pt is CGA for sit to stand from EOB and she used a platform walker to transfer to the toilet. Pt independent with personal hygiene. Pt has tremors of BUE that impact her fine motor skills. Interventions - ROM Right Upper Extremity AROM: Moderate limitation Left Upper Extremity AROM: WFL's - Strength Right Upper Extremity Strength: Severe Weakness Left Upper Extremity Strength: Normal - Sensation Right Upper Extremity Sensation: Intact/Normal Left Upper Extremity Sensation: Intact/Normal Balance - Sitting Balance Static Sitting Balance: Good Dynamic Sitting Balance: Good - Standing Balance Static Standing Balance: Poor Dynamic Standing Balance: Poor ADL Skills - Self Feeding Self Feeding: Set Up Only - Grooming Grooming: Min Assist - Bathing Bathing UE: Min Assist Bathing LE: Min Assist Bathing Set-up: Shower - Dressing Dressing UE: Min Assist Dressing LE: Max Assist - Toilet Management Toilet Hygiene: Independent Toilet Clothing Management: Min Assist Functional Mobility - Bed Mobility Rolling R/L: Min Assist Scooting: CGA Supine to Sit: CGA - Transfers Sit to Stand: CGA Stand to Sit: CGA Stand Pivot Transfers: Min Assist - Ambulation Weight Bearing Status: FWB Assistive Device Used: Platform Walker Assistance needed with Ambulation: 1 person assist - Safety Awareness Safety Awareness: Good [place] INDEX SCORE: . Additional Treatment Performed - Time with patient Length of Evaluation: 17 Total treatment time: 28 Activities Do you enjoy playing games?: Yes Would you be interested in leaving your room for activities?: Yes Would you enjoy group activities?: Yes Do you have difficulty with your vision?: Yes Patient Interests:: Watching Television, Visiting/Socializing Patient Education Patient Education: Education of diagnosis, Home Exercise Program, Education of Plan of Care Teaching Recipient: Patient Teaching Methods: Discussion, Demonstration Assessment Problem List:: Decreased level of function, Requires training/education, Weakness Rehab Potential: Good Further Therapy Indicated?: Yes Evaluation Complexity: HISTORY: Medium, EXAM OF BODY SYSTEMS: Medium, CLINICAL DECISION MAKING: Medium Patient's Goal(s): To be able to take care of herself and go home and take care of her son. Short Term Goals - Goals GOAL 1: Pt to be (I) with toilet transfers. Goal to be met by: 08/10/22 GOAL 2: Pt to increase dyn. std. bal. to Fair+. Goal to be met by: 08/10/22 GOAL 3: Pt to increase independence of LE dressing to Min A. Goal to be met by: 08/10/22 [facility] Goals GOAL 1: Pt to increase (I) of ADLS to Independent. Goal to be met by: 08/13/22 GOAL 2: Pt to increase dyn. std. bal. to G-. Goal to be met by: 08/13/22 Plan Plan of Care: Therapeutic EX, Therapeutic Activity, Self-Care/Home Management Frequency of Treatment: 1-2 X day, as tolerated Duration of Treatment: 1 Week Anticipated Discharge Destination: Home Treatment Diagnosis (ICD 10 Codes): Weakness R53.1 Has the Physician been added for Co-signature?: Yes
[2022-08-08 11:58] LABS: BILIRUBIN,URINE Negative (NEGATIVE); CLARITY,URINE Clear (CLEAR); COLOR,URINE Yellow (YELLOW); GLUCOSE, URINE (UA) Negative (NEGATIVE); KETONES,URINE Negative (NEGATIVE); LEUKOCYTE ESTERASE ,URINE Negative (NEGATIVE); NITRITE,URINE Negative (NEGATIVE); PH,URINE 5.5 (5-9); PROTEIN,URINE Negative (NEGATIVE); URINE, BLOOD Negative (NEGATIVE); UROBILINOGEN,URINE 0.2 (0.2)
--- NOTE | 2022-08-08 12:01 | RS.BEDDYS ---
Subjective Date of Evaluation: 08/08/22 Date of Onset/Injury/Change in Status: 08/07/22 (pt reports within 1-2 months) Diagnosis: weakness, acute hypokalemia, COPD, GERD Current Level of Function: This is an 82 year old female whom resides in her home environment. She has a recent history of sensation of swallowing difficulty. She has no history with speech therapy or receiving therapy for swallowing difficulty. At this time, she is managing symptoms with strategies a nd diet modifications. The COMMERCIAL CENTER MANAGER will complete a bedside swallow evaluation to determine risks for penetration/aspiration. Current Diet: Cardiac diet; thin liquids; meds whole with pudding/applesauce and sips of thin liquids. Current Subjective/complaints:: The patient was upright in the recliner chair upon COMMERCIAL CENTER MANAGER entry. She reported feeling fatigued, but was alert and cooperative for the evaluation. The patient stated her swallowing difficulty has been recently noticeable during her meals. She reported food is sticking in her throat. When asked about how she manages her symptoms, she stated, "I stop eating; but I make sure not to miss any meals, I just stop when the food is stuck." The patient also reported that three days ago pills were stuck in her throat and she could not swallow them, and had to continue to drink liquids to dissolve the medications. At this time, she reported she does not eat bread or meat textures and dry food or nuts are not managed well due to her dentition and swallow function. Medical History Comments:: COPD, GERD, acute respiratory failure, right wrist fracture, generalized weakness, hypokalemia. Hx Home Medications: Review medications for complete current list. Patient's Goals: To decrease food sticking in throat with meals and medication administration. General Information - General Denture Type: Not Applicable Patient Orientation: Person, Place, Time, Situation Ability to Follow Directions: Excellent Is Patient able to Repeat Directions?: Yes Oral Expression Ability: No Impairment (Pt was tiring during evaluation and had two times she required increased processing time to provide detailed answers.) - Voice Voice Quality: Tremor, Weak Voice Pitch: Mildly Low Voice Loudness: Normal Oral-Facial Assessment - Face Facial Symmetry: Symmetrical Facial Movement: Controlled - Dental/Labial Mouth Occlusion: Normal Teeth Characteristics: Missing, Broken Teeth Comment: Four upper teeth including central and lateral incisors; one wisdom on R Lip Protrusion: Normal Lip Retraction: Normal Puff Cheeks: Reduced Strength Lips Comment: With large straw drinks, labial spillage. - Lingual Protrusion: Normal Retraction: Normal Tip Lateralization: Normal Repeated Tip Lateralization: Normal Tip Elevation: Normal Repeated Tip Elevation: Normal Comments: Lingual surface was dry; slower motions with oral motor examination attributed to generalized weakness and pt report of feeling tired. Functional, but minimal deficits observed. Food Presentation - Solids Food Presented: Pureed (Pudding textures were provided via staff and pt self- fed.) Behaviors/Comments: The patient has recent right hand fracture that did impact self-feeding. Hand tremors were also noted. The patient had no overt s/s of aspiration with puree trials. Food Presented: Mechanical Soft (Pt did not want to consume any trials.) Behaviors/Comments: The patient was fatigued and not willing to consume any other textures. - Liquids Liquid Presented: Thin (Via straw) Behaviors/Comments: The patient took large consecutive sips and small sips of thin liquids via straw. She had no overt s/s of aspiration. She had laryngeal burping with straw presentations. The patient had 1-2 second swallow delay, demonstrating functional rate for age, but also demonstrating risks for coordination/timing issues with reflux. - Recommendations: Dysphagia Evaluation Dietary Recommendations: Regular (with extra moisture), Thin Comments:: Restricts herself from tough meat and bread textures. Please provide extra gravy/sauces/condiments on meal trays. Dysphagia Swallow Precautions/Strategies: Sitting Upright (90 deg), Double Swallow, Small Bites and Sips Comments:: Pacing with meals, stop eating if food feels stuck in throat, Use GERD precautions and safe swallow precautions. - Summary Dysphagia Evaluation Summary: The patient presented with esosphageal phase dysphagia as characterized by globus sensation and report of food sticking at level of UES. The patient's oral phase presented with minimal weakness with slow lingual movements. The pharyngeal phase presented with minimally decresaed LE for airway protection. Presentations of puree and thin liquids only were provided during evaluation per pt request. The patient was observed to have difficulty with medication administration and requires strategies and use of pudding/applesauce/yogurt with large pills to swallow completely. At this time, the COMMERCIAL CENTER MANAGER recommends pt have regular diet texture with restrictions to bread texture; add extra sauces/gravy/condiments to meal trays to increase moisture. Pt also has dry mouth and needs to take small sips of water between bites to reduce dryness in oral and pharyngeal cavity as she has continuous O2 via nasal cannula. The patient has minimal risks for aspiration/penetration with thin liquids. The patient has risks for reflux with large meals and COMMERCIAL CENTER MANAGER recommends to follow GERD precautions with all PO intake. At this time, Evaluation only was completed. The COMMERCIAL CENTER MANAGER recommends the patient follow up with GI doctor post d/c from this facility. Further Therapy Indicated?: No Comments: Evaluation only. Functional Reporting G Codes: n/a Severity Impairment Rationale: n/a Plan Duration of Treatment: evaluation Anticipated Discharge Destination: Home Comments: The patient is recommended to follow-up with GI post d/c for potential exacerbated GERD and to perform endoscopy for potential UES dysfunction. - Treatment Code (1) Esophageal dysphagia Code(s): R13.19 - Other dysphagia (2) Generalized weakness Code(s): R53.1 - Weakness
[2022-08-09] MEDS: SODIUM CHLORIDE 0.9%-KCL 20 MEQ 1,000 ML IV SCH ×2 (04:40→18:33)
[2022-08-09] MEDS: NORCO 10-325 PO SCH ×3 (04:41→20:19)
[2022-08-09] MEDS: ALBUTEROL 0.083% NEB NEB SCH ×3 (04:45→21:49)
[2022-08-09 05:33] LABS: BASOPHILS % (AUTO) 0.2 % (0.0-3.0); EOSINOPHILS # (AUTO) 0.5 K/ul (0.0-0.7); HEMATOCRIT 36.4 % (37.0-47.0); HEMOGLOBIN 11.4 g/dl (12.0-16.0); IMMATURE GRANULOCYTE % (AUTO) 0.5 % (0.0-5.0); LYMPHOCYTES % (AUTO) 22.4 (10.0-50.0); MEAN CORPUSCULAR HEMOGLOBIN 28.9 pg (27.0-31.0); MEAN CORPUSCULAR HGB CONC 31.3 (31.8-35.4); MEAN CORPUSCULAR VOLUME 92.2 fl (81.0-99.0); MONOCYTES # (AUTO) 0.4 K/uL (0.4-2.0); MONOCYTES % (AUTO) 8.9 (0-10); NEUTROPHILS # (AUTO) 2.4 K/ul (2.0-6.9); PLATELET COUNT 183 10^3/uL (140-440); RDW COEFFICIENT OF VARIATION 15.5 % (11.6-14.8); RED BLOOD COUNT 3.95 10^6/ul (4.20-5.40); WHITE BLOOD COUNT 4.25 K/ul (4.6-10.2)
[2022-08-09 05:42] LABS: ALANINE AMINOTRANSFERASE 18.4 U/L (0-35); ALBUMIN 3.6 g/dL (3.5-5.0); ALKALINE PHOSPHATASE 37.4 U/L (53-141); ASPARTATE AMINO TRANSFERASE 36.3 U/L (14-36); BILIRUBIN,TOTAL 0.52 mg/dL (0.2-1.3); BLOOD UREA NITROGEN 11.6 mg/dL (7-17); CALCIUM 8.02 mg/dL (8.4-10.2); CARBON DIOXIDE 27.3 mmol/L (22-30.0); CREATINE KINASE 501.2 U/L (30-135); CREATININE 0.74 mg/dL (0.60-1.30); POTASSIUM 4.16 mmol/L (3.5-5.1); SODIUM 139.9 mmol/L (134.5-145); TOTAL PROTEIN 6.03 g/dL (6.3-8.2)
[2022-08-09] MEDS: LASIX TAB PO SCH (05:42)
[2022-08-09] MEDS: PROTONIX PO SCH (05:43)
[2022-08-09 05:58] LABS: CREATINE KINASE MB 3.52 ng/ml (0.0-2.38)
[2022-08-09] MEDS: ATIVAN PO SCH (08:52)
[2022-08-09] MEDS: NORVASC PO SCH (08:53)
[2022-08-09] MEDS: MICRO-K CAP PO SCH (08:53)
[2022-08-09] MEDS: VITAMIN D PO SCH (08:53)
--- NOTE | 2022-08-09 09:26 | PCM.PROG ---
Date Seen by Provider: 08/09/22 Time Seen by Provider: 09:23 Subjective: dx. copd hypoxia, nondisplaced fracture of the right wrist, mild rhabdomyolysis Objective: Vitals: T=97.7 F, P=79, R=18, SQ=689/69, SPO2=94 HEENT: []conjunctiva clear Neck: []supple Lungs: [] clear CVS: []rrr Abdomen: []nondistended Extremities: []warm and dry Neurological: []alert and oriented Skin: []pink Lab/Tests/Diagnostic Imaging: [] cpk 501 (1) Esophageal dysphagia: Status: Acute Code(s): R13.19 - Other dysphagia SNOMED Code(s): 51030613 (2) Generalized weakness: Status: Acute Code(s): R53.1 - Weakness SNOMED Code(s): 33008284 Plan: continue duo neb and iv hydration, pt on home oxygen, d/c home tomorrow, referral from Dr Iraheta to orthopedics
[2022-08-09] MEDS ORDERED: CATAPRES PO ONE (18:19)
[2022-08-10 05:04] LABS: BASOPHILS % (AUTO) 0.3 % (0.0-3.0); EOSINOPHILS # (AUTO) 0.5 K/ul (0.0-0.7); EOSINOPHILS % (AUTO) 11.3 % (0.0-7.0); HEMATOCRIT 35.1 % (37.0-47.0); HEMOGLOBIN 10.9 g/dl (12.0-16.0); IMMATURE GRANULOCYTE % (AUTO) 0.3 % (0.0-5.0); LYMPHOCYTES # (AUTO) 0.9 K/uL (0.60-3.4); LYMPHOCYTES % (AUTO) 21.8 (10.0-50.0); MEAN CORPUSCULAR HEMOGLOBIN 28.8 pg (27.0-31.0); MEAN CORPUSCULAR HGB CONC 31.1 (31.8-35.4); MEAN CORPUSCULAR VOLUME 92.6 fl (81.0-99.0); MONOCYTES # (AUTO) 0.4 K/uL (0.4-2.0); MONOCYTES % (AUTO) 8.8 (0-10); NEUTROPHILS # (AUTO) 2.3 K/ul (2.0-6.9); NEUTROPHILS % (AUTO) 57.5 % (42.2-75.2); PLATELET COUNT 172 10^3/uL (140-440); RDW COEFFICIENT OF VARIATION 15.4 % (11.6-14.8); RED BLOOD COUNT 3.79 10^6/ul (4.20-5.40); WHITE BLOOD COUNT 3.99 K/ul (4.6-10.2)
[2022-08-10] MEDS: SODIUM CHLORIDE 0.9%-KCL 20 MEQ 1,000 ML IV SCH (05:09)
[2022-08-10] MEDS: ALBUTEROL 0.083% NEB NEB SCH ×3 (05:11→22:00)
[2022-08-10] MEDS: NORCO 10-325 PO SCH ×3 (05:14→21:02)
[2022-08-10 05:19] LABS: ALANINE AMINOTRANSFERASE 19.8 U/L (0-35); ALBUMIN 3.42 g/dL (3.5-5.0); ALKALINE PHOSPHATASE 33.5 U/L (53-141); ASPARTATE AMINO TRANSFERASE 41.8 U/L (14-36); BILIRUBIN,TOTAL 0.55 mg/dL (0.2-1.3); CALCIUM 8.65 mg/dL (8.4-10.2); CARBON DIOXIDE 26.8 mmol/L (22-30.0); CHLORIDE 108.1 mmol/L (98-107); CREATININE 0.69 mg/dL (0.60-1.30); GLUCOSE 110.9 mg/dL (74-106); POTASSIUM 4.02 mmol/L (3.5-5.1); SODIUM 137.8 mmol/L (134.5-145); TOTAL PROTEIN 5.76 g/dL (6.3-8.2)
[2022-08-10] MEDS: LASIX TAB PO SCH (05:31)
[2022-08-10] MEDS: PROTONIX PO SCH (05:31)
[2022-08-10 06:24] LABS: CREATINE KINASE 515.5 U/L (30-135)
[2022-08-10 06:26] LABS: CREATINE KINASE MB 6.13 ng/ml (0.0-2.38)
[2022-08-10] MEDS: MICRO-K CAP PO SCH (08:49)
[2022-08-10] MEDS: NORVASC PO SCH (08:49)
[2022-08-10] MEDS: ATIVAN PO SCH (08:49)
[2022-08-10] MEDS: VITAMIN D PO SCH (08:53)
[2022-08-10] MEDS ORDERED: CATAPRES PO ONE (16:49)
[2022-08-11] MEDS: SODIUM CHLORIDE 0.9%-KCL 20 MEQ 1,000 ML IV SCH ×2 (00:57→05:09)
[2022-08-11 05:25] LABS: BASOPHILS % (AUTO) 0.5 % (0.0-3.0); EOSINOPHILS # (AUTO) 0.4 K/ul (0.0-0.7); HEMOGLOBIN 11.4 g/dl (12.0-16.0); IMMATURE GRANULOCYTE % (AUTO) 0.5 % (0.0-5.0); LYMPHOCYTES # (AUTO) 0.8 K/uL (0.60-3.4); LYMPHOCYTES % (AUTO) 19.1 (10.0-50.0); MEAN CORPUSCULAR HEMOGLOBIN 28.8 pg (27.0-31.0); MEAN CORPUSCULAR HGB CONC 31.7 (31.8-35.4); MEAN CORPUSCULAR VOLUME 90.9 fl (81.0-99.0); MONOCYTES # (AUTO) 0.3 K/uL (0.4-2.0); MONOCYTES % (AUTO) 7.8 (0-10); NEUTROPHILS # (AUTO) 2.5 K/ul (2.0-6.9); NEUTROPHILS % (AUTO) 62.1 % (42.2-75.2); PLATELET COUNT 200 10^3/uL (140-440); RDW COEFFICIENT OF VARIATION 15.4 % (11.6-14.8); RED BLOOD COUNT 3.96 10^6/ul (4.20-5.40); WHITE BLOOD COUNT 4.09 K/ul (4.6-10.2)
[2022-08-11] MEDS: ALBUTEROL 0.083% NEB NEB SCH (05:30)
[2022-08-11 05:37] LABS: ALBUMIN 3.68 g/dL (3.5-5.0); ALKALINE PHOSPHATASE 37.6 U/L (53-141); ASPARTATE AMINO TRANSFERASE 45.3 U/L (14-36); BILIRUBIN,TOTAL 0.61 mg/dL (0.2-1.3); CALCIUM 9.09 mg/dL (8.4-10.2); CARBON DIOXIDE 26.6 mmol/L (22-30.0); CHLORIDE 106.8 mmol/L (98-107); CREATININE 0.7 mg/dL (0.60-1.30); GLUCOSE 114.3 mg/dL (74-106); POTASSIUM 3.79 mmol/L (3.5-5.1); SODIUM 139.2 mmol/L (134.5-145); TOTAL PROTEIN 6.2 g/dL (6.3-8.2)
[2022-08-11] MEDS: PROTONIX PO SCH (05:41)
[2022-08-11] MEDS: LASIX TAB PO SCH (05:41)
[2022-08-11] MEDS: NORCO 10-325 PO SCH (05:42)
[2022-08-11] MEDS: MICRO-K CAP PO SCH (09:26)
[2022-08-11] MEDS: ATIVAN PO SCH (09:26)
[2022-08-11] MEDS: VITAMIN D PO SCH (09:26)
[2022-08-11] MEDS: NORVASC PO SCH (09:26)
[2022-08-11 10:01] VITALS: BP 145/65; TEMP 97.2
--- NOTE | 2022-08-11 11:15 | PCM.DC ---
Final Diagnosis: dx. right wrist fracture, copd, rhabdomyolysis 40 minutes spent on discharge summary Physical Exam Appearance: Well-appearing Ill-appearing: None Pain Distress: None Eyes: Conjunctiva clear ENT: Oropharynx normal Neck: Supple Respiratory: Airway patent and Breath sounds clear Cardiovascular: RRR GI/: Other (nondistended) Musculoskeletal: ROM intact (except as noted) Skin: Warm and Dry Neurological: Alert and Oriented Psychiatric: Affect appropriate (1) Esophageal dysphagia: Status: Acute Code(s): R13.19 - Other dysphagia SNOMED Code(s): 77633487 (2) Generalized weakness: Status: Acute Code(s): R53.1 - Weakness SNOMED Code(s): 26490443 Reason for Hospitalization: copd and hypoxia Prognosis/Condition at Discharge: stable Medications at Discharge: albuterol rescue inhaler and albuteral packettes for nebulizer Lab/Diagnostics: cpk yesterday improved to 440, O2sat on 2liters nc 98%, pt has oxygen at home Education Provided to Patient and Family: how to use a rescue inhaler, wear your wrist splint, guard against falling Follow-ups: see Dr Iraheta, see Dr Torres on 08/14 at 10:40am for wrist fracture Discharge Disposition: Home Hospital Course: improving, increased activity Plan: see Dr Iraheta for med review
--- NOTE | 2022-08-11 12:05 | PCM.PROG ---
Date Seen by Provider: 08/10/22 Time Seen by Provider: 21:00 Subjective: No acute sxs. pt denied SOB or chest pain Objective: Vitals: T=97.2 F, P=61, R=16, XC=604/65, SPO2=95. Pt was lying comfortably in the bed. HEENT: []wnl Neck: []supple Lungs: [] chest had minimal occasional rhonchi. no acute resp distress. Abdomen: []benign Extremities: []right upper forearm splint. no other acute abnormality. Neurological: []non-focal Skin: []no acute abnormality. Lab/Tests/Diagnostic Imaging: [] (1) Esophageal dysphagia: Status: Acute Code(s): R13.19 - Other dysphagia SNOMED Code(s): 72095872 (2) Generalized weakness: Status: Acute Code(s): R53.1 - Weakness SNOMED Code(s): 04613132 Plan: Continue treatment regimen.
== END 2022-08-11 11:47 | disposition home or self-care (01) | DRG 189 ==
LOC: ED 15:51 → MEDSURG A 18:06
PROVIDERS: ADMIT Emergency Medicine Emergency Medical Services; ATTEND Emergency Medicine Emergency Medical Services
DX: Z51.81 Encounter for therapeutic drug level monitoring; R13.19 Other dysphagia; Z20.822 Contact with and (suspected) exposure to COVID-19; M62.82 Rhabdomyolysis; J96.01 Acute respiratory failure with hypoxia; R29.6 Repeated falls; E87.6 Hypokalemia; Z99.81 Dependence on supplemental oxygen; J44.9 Chronic obstructive pulmonary disease, unspecified; R26.81 Unsteadiness on feet; Z79.899 Other long term (current) drug therapy; S62.101A Fracture of unspecified carpal bone, right wrist, initial encounter for closed fracture; R53.1 Weakness; K21.9 Gastro-esophageal reflux disease without esophagitis

== ENCOUNTER 2024-11-26 02:23 | Inpatient (IN) ==
--- NOTE | 2024-11-26 02:36 | ED.PDOC ---
General HPI ED Provider: Dr. MARTA EVANS DO Chief Complaint: Shortness of Air Stated Complaint: Dyspnea. Patient is a 84-year-old female with past medical history significant for COPD occasional use of oxygen 2.5 L, CAD presenting with complaints of shortness of breath. Patient states that over the past day or so she has had worsening shortness of breath however acutely worsened this morning approximately 130 resulted in her calling EMS. Upon arrival EMS noted that the patient was hypoxic satting into the 80s and somewhat mottled. They provided a DuoNeb as well as increased her oxygen to 4 L. Patient is awake and conversant. She denies any recent fevers. She did endorse anterior chest discomfort. Patient does have history of CABG. Patient states that she intermittently uses her oxygen when she needs it but noticed that she has been having to use it more readily. She denies any sick contacts. She is not currently a smoker. Lives at home with her son. Time Seen by Provider: 11/26/24 02:25 Information Source: Patient Primary Care Provider: AUSTIN IRAHETA MD Nursing and Triage Documentation Reviewed and Agree: Yes Opioid Naive vs. Tolerant What is Opioid Naive?: *Opioid Naive implies the patient is not already taking opioids or not chronically receiving opioids on a daily basis. *PRN dosing is not "usually" associated with tolerance. *Patients are at higher risk of over-sedation and aspiration. What is Opioid Tolerant?: *Opioid Tolerance implies less than the expected response to an opioid. *Acquired tolerance is defined by the patient taking 60mg of oral morphine daily (or equianalgesic dose of another opioid) for 1 week or more. *Often associated with chronic pain. *May take more than usual dose to achieve desired pain control. Review of Systems Review Of Systems Constitutional: Reports Weakness Eyes: Denies No symptoms Respiratory: Reports Shortness of Breath and Wheezing Cardiac: Reports Chest pain GI: Denies Abdominal pain Musculoskeletal: Denies Joint swelling Skin: Reports No symptoms PFSH PFS Medical History Wrist fracture, right Dr Dawson S62.101A - Fracture of unspecified carpal bone, right wrist, initial encounter for closed fracture (ICD-10) Urine frequency R35.0 - Frequency of micturition (ICD-10) UTI (urinary tract infection) N39.0 - Urinary tract infection, site not specified (ICD-10) Rhabdomyolysis M62.82 - Rhabdomyolysis (ICD-10) History of RI (myocardial infarction) I25.2 - Old myocardial infarction (ICD-10) Family History (Updated 11/26/24 @ 20:08 by JORGE AVILEZ RN) Mother Dementia Mother AMI (acute myocardial infarction) Mother Hypertension SISTER Hypertension FATHER Bone cancer SISTER Cardiac disease CVA (cerebral vascular accident) MATERNAL GRANDMOTHER Cardiac disease Glaucoma Brain cancer Other No known health problems Social History Smoking and tobacco status: Former smoker Tobacco: How many years used: 30 Second hand smoke exposure: No Alcohol intake: never Substance use type: does not use Special jennifer needs: No Agree to transfusion: Yes Adopted: No Caregiver/support person: No Foster care: No Household members: none Housing: house Marital status: D Lives independently: Yes Daycare: no daycare Number of children: 2 Financial difficulty paying for basics: not very hard service: No prison: No Current occupational status: retired History of recent travel: No Do you think of yourself as: straight/heterosexual Current gender identity: female Seatbelt use: always Helmet use: No Drives intoxicated or rides with intoxicated driver/sales workers: No Water heater temperature set < 120 degrees: Yes Working smoke detector in home: Yes Fire extinguisher in home: Yes Carbon monoxide detector in home: Yes Firearms in home: No Surgical History (Updated 11/26/24 @ 20:10 by JORGE AVILEZ RN) Status post cataract surgery Z98.49 - Cataract extraction status, unspecified eye (ICD-10) 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 - Presence of aortocoronary bypass graft (ICD-10) Hx of CABG Z95.1 - Presence of aortocoronary bypass graft (ICD-10) History of cholecystectomy Z90.49 - Acquired absence of other specified parts of digestive tract (ICD- 10) History of hysterectomy Z90.710 - Acquired absence of both cervix and uterus (ICD-10) Female Reproductive History Menstrual Hx Hysterectomy: Yes Hx Tubal Ligation: No Physical Exam Physical Exam Appearance: Reports Ill-appearing Eyes: Reports Conjunctiva clear ENT: Reports Ears normal Neck: Supple Respiratory: Reports Airway patent, Wheezes and Other (Increased work of breathing) Cardiovascular: Reports RRR, Pulses normal and No murmur (Systolic murmur present) GI/: Reports Soft, Nontender and No masses Musculoskeletal: Reports No calf tenderness Skin: Reports Warm and Dry Neurological: Reports Sensation intact and Alert Interpretation EKG Interpretation EKG Interpretation By: ED Physician Time of EKG #1: 02:50 Rate: Normal Rhythm: Sinus [place]: NL Interpretation: Rate 74 QTc 472 right bundle branch block ST segment depression V5 V6 Course Course 11/27/24 05:05 11/27/24 05:05 Orders, Labs, Meds: Lab Review 11/26/24 11/26/24 11/26/24 02:31 02:35 04:52 WBC 8.27 RBC 4.73 Hgb 14.1 Hct 45.4 MCV 96.0 MCH 29.8 MCHC 31.1 L RDW Coeff of Cathy 14.0 Plt Count 181 Immature Gran % (Auto) 0.4 Neut % (Auto) 75.6 H Lymph % (Auto) 15.8 [place] % (Auto) 5.6 Eos % (Auto) 2.2 Baso % (Auto) 0.4 Neut # (Auto) 6.3 Lymph # (Auto) 1.3 [place] # (Auto) 0.5 Eos # (Auto) 0.2 Baso # (Auto) 0.0 Immature Gran # (Auto) 0.0 PT 10.1 INR 0.97 APTT 22.6 L Sodium 144.6 Potassium 3.69 Chloride 108.6 H Carbon Dioxide 24.1 Anion Gap 15.59 BUN 24.7 H Creatinine 0.97 Estimated GFR (MDRD) 55.00 BUN/Creatinine Ratio 25.46 Glucose 132.1 H Lactic Acid 2.29 H Calcium 9.66 Total Bilirubin 0.42 AST 26.6 ALT 15.1 Alkaline Phosphatase 45.7 L Troponin I 0.102 0.443 H NT-Pro-B Natriuret Pep 5230 H Total Protein 6.45 Albumin 3.95 Globulin 2.50 Albumin/Globulin Ratio 1.58 Influ A Molecular Assay Negative by naat Influ B Molecular Assay Negative by naat SARS CoV-2 RNA Rapid SARAH Negative 11/26/24 08:56 WBC RBC Hgb Hct MCV MCH MCHC RDW Coeff of Cathy Plt Count Immature Gran % (Auto) Neut % (Auto) Lymph % (Auto) [place] % (Auto) Eos % (Auto) Baso % (Auto) Neut # (Auto) Lymph # (Auto) [place] # (Auto) Eos # (Auto) Baso # (Auto) Immature Gran # (Auto) PT INR APTT Sodium Potassium Chloride Carbon Dioxide Anion Gap BUN Creatinine Estimated GFR (MDRD) BUN/Creatinine Ratio Glucose Lactic Acid 2.79 H D Calcium Total Bilirubin AST ALT Alkaline Phosphatase Troponin I 0.618 H* NT-Pro-B Natriuret Pep Total Protein Albumin Globulin Albumin/Globulin Ratio Influ A Molecular Assay Influ B Molecular Assay SARS CoV-2 RNA Rapid SARAH Orders Category Date Time Status EKG-(ED ONLY) Stat CARDIO 11/26/24 02:36 Completed NEBULIZER TREATMENT Routine CARDIO 11/26/24 08:37 Active OXYGEN Routine CARDIO 11/26/24 08:36 Active ACTIVITY .Early Mobilization for VTE Prevention CARE 11/26/24 08:35 Active BLOOD GLUCOSE MONITORING (MED/SURG) 0630,1100,1700,2100 CARE 11/26/24 08:36 Active GIVE HS SNACK 2100 CARE 11/26/24 08:36 Active INTAKE & OUTPUT Q8HR CARE 11/26/24 08:35 Active Notify RT of Treatment ONCE CARE 11/26/24 08:37 Active REMINDER: Give Insulin if Needed 0630,1100,1700,2100 CARE 11/26/24 08:35 Active TELEMETRY MONITORING TELE CARE 11/26/24 07:37 Active VITAL SIGNS Q4HR CARE 11/26/24 08:35 Active ADA 1800 GENE. DIET DIETARY 11/26/24 Breakfast Ordered HS SNACK DIETARY 11/26/24 Dinner Ordered ED APPLY O2 .ONCE EMERGENCY 11/26/24 02:36 Active ED SURVEYOR GEODETIC APPLIED .ONCE EMERGENCY 11/26/24 02:36 Active CBC W/ AUTO DIFF DAILY@0600 LAB 11/27/24 05:05 Completed CBC W/ AUTO DIFF DAILY@0600 LAB 11/28/24 06:00 Ordered CBC W/ AUTO DIFF Stat LAB 11/26/24 02:35 Completed COMPREHENSIVE METABOLIC PANEL DAILY@0600 LAB 11/27/24 05:05 Completed COMPREHENSIVE METABOLIC PANEL DAILY@0600 LAB 11/28/24 06:00 Ordered COMPREHENSIVE METABOLIC PANEL Stat LAB 11/26/24 02:35 Completed FLU A/B MOLECULAR Stat LAB 11/26/24 02:31 Completed LACTIC ACID Stat LAB 11/26/24 02:35 Completed LACTIC ACID Stat LAB 11/26/24 08:56 Completed LEGIONELLA URINARY ANTIGEN Routine LAB 11/26/24 14:30 Received NT-PROBNP(ED) Stat LAB 11/26/24 02:35 Completed PT WITH INR Stat LAB 11/26/24 02:35 Completed PTT [PARTIAL THROMBOPLASTIN TIME] Stat LAB 11/26/24 02:35 Completed SARS COV-2 RNA RAPID SARAH Stat LAB 11/26/24 02:31 Completed SPUTUM CULTURE Routine LAB 11/26/24 13:30 Results STREP PNEUMO AG, URINE Routine LAB 11/26/24 14:30 Received TROPONIN I Stat LAB 11/26/24 02:35 Completed TROPONIN I Stat LAB 11/26/24 04:52 Completed TROPONIN I Stat LAB 11/26/24 08:56 Completed Acetaminophen [Tylenol] Meds 11/26/24 08:35 Active 650 mg PO Q4H PRN Aspirin [Aspirin Chewable] Meds 11/26/24 05:41 Discontinued 324 mg PO ONCE ONE Azithromycin [Zithromax] Meds 11/26/24 09:00 Active 500 mg PO DAILY Ceftriaxone 1 gm Vial [Rocephin 1 gm Vial] Meds 11/26/24 07:38 Discontinued 2 gm IVP ONCE ONE Ceftriaxone/D5w 1 gm Premix [Rocephin 1 gm/50 ml D5w] Meds 11/27/24 09:00 Active 1 gm in 50 ml IV DAILY Furosemide [Lasix] Meds 11/26/24 05:48 Discontinued 20 mg IVP ONCE ONE Furosemide [Lasix] Meds 11/26/24 14:00 Active 20 mg IVP Q8HR Ipratropium/Albuterol Neb [Duoneb] Meds 11/26/24 02:46 Discontinued 3 ml NEB ONCE ONE Ipratropium/Albuterol Neb [Duoneb] Meds 11/26/24 12:00 Active 3 ml NEB RTQ6H Magnesium Sulfate [Magnesium Sulfate 1 gm/2 ml Vial] Meds 11/26/24 03:49 Discontinued 1 gm .ROUTE .STK-MED ONE Magnesium Sulfate [Magnesium Sulfate 1 gm/2 ml Vial] Meds 11/26/24 02:49 Discontinued 1 gm IVP ONCE ONE Methylprednisolone Sod Succ/Pf [Solu-Medrol 125 mg] Meds 11/26/24 03:41 Discontinued 125 mg .ROUTE .STK-MED ONE Methylprednisolone Sod Succ/Pf [Solu-Medrol 125 mg] Meds 11/26/24 02:37 Discontinued 125 mg IVP ONCE ONE Methylprednisolone Sod Succ/Pf [Solu-Medrol 40 mg] Meds 11/26/24 13:00 Active 40 mg IVP Q8HR CHEST, 2 VIEWS PA & LAT Stat RADS 11/26/24 02:36 Completed Medications Generic Name Dose Route Start Last Admin Trade Name Freq PRN Reason Stop Dose Admin Acetaminophen 650 mg 11/26/24 08:35 Acetaminophen 325 Mg Tablet PO Q4H PRN Mild Pain Albuterol Sulfate 2 puff 11/26/24 13:13 Albuterol Sulfate 8 Gm Inhaler IH Q4-6H PRN Wheezing Albuterol/Ipratropium 3 ml 11/26/24 12:00 11/27/24 04:54 Ipratropium/Albuterol Vial.Neb NEB 3 ml RTQ6H SANDI Administration Allopurinol 200 mg 11/26/24 13:30 11/26/24 14:43 Allopurinol 100 Mg Tablet PO 200 mg DAILY SANDI Administration Azelastine HCl 1 spray 11/26/24 21:00 11/26/24 21:33 Azelastine Hcl 30 Ml Nasal Britt ERNESTO 1 spray BID SANDI Administration Azithromycin 500 mg 11/26/24 09:00 11/26/24 14:23 Azithromycin 250 Mg Tablet PO 11/29/24 08:59 500 mg DAILY SANDI Administration Buspirone HCl 10 mg 11/26/24 21:00 11/26/24 21:34 Buspirone Hcl 10 Mg Tablet PO 10 mg 2XD SANDI Administration Cholecalciferol 1,000 unit 11/27/24 09:00 Cholecalciferol (Vitamin D3) 1,000 Unit (25 Mcg) Tablet PO DAILY SANDI Citalopram Hydrobromide 40 mg 11/26/24 13:15 11/26/24 14:22 Citalopram Hydrobromide 20 Mg Tablet PO 40 mg DAILY SANDI Administration Clopidogrel Bisulfate 75 mg 11/26/24 13:15 11/26/24 14:21 Clopidogrel Bisulfate 75 Mg Tablet PO 75 mg DAILY SANDI Administration Fenofibrate 54 mg 11/27/24 09:00 Fenofibrate 54 Mg Tablet PO DAILY [facility] Ferrous Sulfate 324 mg 11/27/24 06:00 11/27/24 05:41 Ferrous Sulfate 324 Mg Tablet. PO 324 mg QDAC2 SANDI Administration Fluticasone Propionate 1 spray 11/26/24 21:00 11/26/24 21:33 Fluticasone Propionate 16 Gm Nasal Britt ERNESTO 1 spray BID SANDI Administration Furosemide 20 mg 11/26/24 14:00 11/27/24 05:13 Furosemide Inj 20 Mg/2 Ml Vial IVP 20 mg Q8HR SANDI Administration CEFTRIAXONE/D5W 1 GM PREMIX 1 gm in 50 mls @ 100 mls/hr 11/27/24 09:00 Rocephin 1 Gm/50 Ml D5w IV 11/30/24 08:59 DAILY SANDI Insulin Human Regular 0 unit 11/26/24 13:16 11/26/24 14:31 Insulin Regular, Human 100 Unit/Ml (10ml) Vial SUBCUT 2 unit PRN PRN Administration Hyperglycemia Protocol Lisinopril 10 mg 11/26/24 13:15 11/26/24 14:22 Lisinopril 10 Mg Tablet PO 10 mg DAILY SANDI Administration Methylprednisolone Sodium Succinate 40 mg 11/26/24 13:00 11/27/24 05:13 Methylprednisolone Sod Succ/Pf 40 Mg/Ml Vial IVP 40 mg Q8HR SANDI Administration Metoprolol Tartrate 12.5 mg 11/27/24 09:00 Metoprolol Tartrate 25 Mg Tablet PO DAILY SANDI Oxybutynin Chloride 10 mg 11/26/24 13:30 11/26/24 14:22 Oxybutynin Chloride 5 Mg Tab.Er.24 PO 10 mg DAILY SANDI Administration Pantoprazole Sodium 40 mg 11/27/24 06:00 11/27/24 05:41 Pantoprazole Sodium 40 Mg Tablet. PO 40 mg QDAC2 SANDI Administration Potassium Chloride 20 meq 11/27/24 07:30 Potassium Chloride 20 Meq Tab PO DAILYWM2 SANDI Pravastatin Sodium 80 mg 11/26/24 13:15 11/26/24 14:23 Pravastatin Sodium 40 Mg Tablet PO 80 mg DAILY SANDI Administration Prednisolone Acetate 1 drop 11/26/24 21:00 11/26/24 21:34 Prednisolone Acetate 10 Ml Op Susp EACHEYE 1 drop BID SANDI Administration Sodium Chloride 1 syr 11/26/24 21:00 11/27/24 05:13 0.9% Sodium Chloride 10 Ml Disp.Syrin IVF 1 syr Q8HR SANDI Administration Discontinued Medications Generic Name Dose Route Start Last Admin Trade Name Brockq PRN Reason Stop Dose Admin Albuterol/Ipratropium 3 ml 11/26/24 02:46 11/26/24 03:11 Ipratropium/Albuterol Vial.Neb NEB 11/26/24 02:47 3 ml ONCE ONE Administration Aspirin 324 mg 11/26/24 05:41 11/26/24 05:47 Aspirin 81 Mg Tab.Chew PO 11/26/24 05:42 324 mg ONCE ONE Administration Ceftriaxone Sodium 2 gm 11/26/24 07:38 11/26/24 08:03 Ceftriaxone 1 Gm Vial IVP 11/26/24 07:39 2 gm ONCE ONE Administration Furosemide 20 mg 11/26/24 05:48 11/26/24 06:33 Furosemide Inj 20 Mg/2 Ml Vial IVP 11/26/24 05:49 20 mg ONCE ONE Administration Magnesium Sulfate 1 gm 11/26/24 02:49 11/26/24 02:56 Magnesium Sulfate Vial 1 Gm/2 Ml Vial IVP 11/26/24 02:50 1 gm ONCE ONE Administration Methylprednisolone Sodium Succinate 125 mg 11/26/24 02:37 11/26/24 02:48 Methylprednisolone Sod Succ/Pf 125 Mg/2 Ml Vial IVP 11/26/24 02:38 125 mg ONCE ONE Administration Non-Formulary Medication 325 mg 11/26/24 13:15 Ferrous Fumarate PO DAILY SANDI Non-Formulary Medication 1 spray 11/26/24 21:00 Azelastine [Astepro Allergy] ERNESTO BID SANDI Vital Signs: Temp Pulse Resp BP Pulse Ox O2 Del Method O2 Flow Rate 11/26/24 10:19 98 F 60 18 95 Nasal Cannula 2 11/26/24 10:00 Nasal Cannula 2 11/26/24 10:00 94 L Nasal Cannula 2 11/26/24 02:30 2.5 11/26/24 02:26 98.1 F 78 30 H 150/71 H 93 L Discharge Plan Discharge Patient Disposition: PLACED OBSERVATION Discharge Problem: Community acquired pneumonia of right lower lobe of lung, Acute on chronic hypoxic respiratory failure Coronary artery disease Qualifiers: Coronary Disease-Associated Artery/Lesion type: [place] artery [place] vs. transplanted heart: [place] heart Associated angina: without angina Qualified Code(s): I25.10 - Atherosclerotic heart disease of [place] coronary artery without angina pectoris Congestive heart failure with left ventricular diastolic dysfunction Qualifiers: Congestive heart failure chronicity: chronic Qualified Code(s): I50.32 - Chronic diastolic (congestive) heart failure Did you review [place] [employer] DEVELOP[employer] INSTRUCTOR for ALL controlled substances?: Not Applicable ED Provider: MARIAH LOZANO Condition: Stable Physician Progress Note Physician Progress Note: Patient is an 84-year-old female presenting with complaints of dyspnea. Patient was met by EMS upon arrival. She has improved with oxygen and DuoNeb. Patient received additional DuoNeb as well as Solu-Medrol and magnesium for suspected COPD exacerbation. Given increased work of breathing concern for COVID, viral illness, flu. The swabs were negative. Patient also complained of anterior chest discomfort with history of ACS. Initial troponin nonelevated. EKG does show some ST segment depression in V5 V6 no reciprocal changes. Her BNP is elevated. Last echo reviewed in system does note a decreased ejection fraction. Work of breathing has decreased after second DuoNeb provided in emergency department and she is breathing more comfortably. Denies any current chest pain. Anticipated admission to the hospitalist service Spoke with Dr. Iraheta patient's spice blender. In light of patient's elevated troponin as well as full CODE STATUS feels she would be better served at outside hospital. I spoke with JUNE Price from cardiology service at [facility] who is willing to consult in Dr. Susie BAXTER hospitalist service who is willing to accept patient to a telemetry bed. Currently on list for bed. Will continue to trend troponins. I will obtain EKG for any change in chest pain. Patient willing to be admitted at [facility] but nowhere else. She does have a son at home who she looks after.
[2024-11-26 02:41] LABS: BASOPHILS % (AUTO) 0.4 % (0.0-3.0); EOSINOPHILS # (AUTO) 0.2 K/ul (0.0-0.7); EOSINOPHILS % (AUTO) 2.2 % (0.0-7.0); HEMATOCRIT 45.4 % (37.0-47.0); HEMOGLOBIN 14.1 g/dl (12.0-16.0); IMMATURE GRANULOCYTE % (AUTO) 0.4 % (0.0-5.0); LYMPHOCYTES # (AUTO) 1.3 K/uL (0.60-3.4); LYMPHOCYTES % (AUTO) 15.8 (10.0-50.0); MEAN CORPUSCULAR HEMOGLOBIN 29.8 pg (27.0-31.0); MEAN CORPUSCULAR HGB CONC 31.1 (31.8-35.4); MONOCYTES # (AUTO) 0.5 K/uL (0.4-2.0); MONOCYTES % (AUTO) 5.6 (0-10); NEUTROPHILS # (AUTO) 6.3 K/ul (2.0-6.9); NEUTROPHILS % (AUTO) 75.6 % (42.2-75.2); PLATELET COUNT 181 10^3/uL (140-440); RED BLOOD COUNT 4.73 10^6/ul (4.20-5.40); WHITE BLOOD COUNT 8.27 K/ul (4.6-10.2)
[2024-11-26] MEDS ORDERED: MAGNESIUM SULFATE 1 GM/2 ML VIAL IM ONE (02:43)
[2024-11-26] MEDS: SOLU-MEDROL 125 MG IVP ONE (02:48)
[2024-11-26 02:55] LABS: ALANINE AMINOTRANSFERASE 15.1 U/L (0-35); ALBUMIN 3.95 g/dL (3.5-5.0); ALKALINE PHOSPHATASE 45.7 U/L (53-141); ASPARTATE AMINO TRANSFERASE 26.6 U/L (14-36); BILIRUBIN,TOTAL 0.42 mg/dL (0.2-1.3); BLOOD UREA NITROGEN 24.7 mg/dL (7-17); CALCIUM 9.66 mg/dL (8.4-10.2); CARBON DIOXIDE 24.1 mmol/L (22-30.0); CHLORIDE 108.6 mmol/L (98-107); CREATININE 0.97 mg/dL (0.60-1.30); GLUCOSE 132.1 mg/dL (74-106); POTASSIUM 3.69 mmol/L (3.5-5.1); SODIUM 144.6 mmol/L (134.5-145); TOTAL PROTEIN 6.45 g/dL (6.3-8.2)
[2024-11-26] MEDS: MAGNESIUM SULFATE 1 GM/2 ML VIAL IVP ONE (02:56)
[2024-11-26 02:58] LABS: MOLECULAR FLU A NEGATIVE BY NAAT (NEGATIVE); MOLECULAR FLU B NEGATIVE BY NAAT (NEGATIVE); SARS COV-2 RNA RAPID NAAT NEGATIVE (NEGATIVE)
[2024-11-26] MEDS: SOLU-MEDROL 125 MG ONE (03:04)
[2024-11-26] MEDS: MAGNESIUM SULFATE 1 GM/2 ML VIAL ONE (03:04)
[2024-11-26 03:06] LABS: TROPONIN I 0.102 ng/ml (0.0000-0.120)
[2024-11-26] MEDS: DUONEB NEB ONE (03:11)
--- NOTE | 2024-11-26 05:36 | DI ---
EXAM: TWO-VIEW CHEST HISTORY: Dyspnea COMPARISON: Single-view chest 08/07/2022. FINDINGS: Stable cardiomegaly.. The aortic arch is atherosclerotic. There has been prior mediastino jeramie. The lungs are hyperinflated.. There is calcified granuloma the right lung base interstitial pro minence is noted peripherally at the right lung base. There is no pleural effusion. IMPRESSION: Stable cardiomegaly. Prior mediastinotomy. Bilateral hyperinflation. Right basilar interstitial infiltrate
[2024-11-26] MEDS: ASPIRIN CHEWABLE PO ONE (05:47)
[2024-11-26 06:02] LABS: PARTIAL THROMBOPLASTIN TIME 22.6 SEC (23.9-40.0); PROTHROMBIN TIME 10.1 SEC (9.3-11.0)
[2024-11-26] MEDS: LASIX IVP ONE (06:33)
--- NOTE | 2024-11-26 07:55 | ED.PDOC ---
General HPI ED Provider: Dr. MARIAH LOZANO MD Chief Complaint: Shortness of Air Stated Complaint: Short of breath resolved Time Seen by Provider: 11/26/24 02:25 Information Source: Patient and Other (Dr. Brito) Exam Limitations: No limitations Primary Care Provider: AUSTIN TELLES MD Nursing and Triage Documentation Reviewed and Agree: Yes Opioid Naive vs. Tolerant What is Opioid Naive?: *Opioid Naive implies the patient is not already taking opioids or not chronically receiving opioids on a daily basis. *PRN dosing is not "usually" associated with tolerance. *Patients are at higher risk of over-sedation and aspiration. What is Opioid Tolerant?: *Opioid Tolerance implies less than the expected response to an opioid. *Acquired tolerance is defined by the patient taking 60mg of oral morphine daily (or equianalgesic dose of another opioid) for 1 week or more. *Often associated with chronic pain. *May take more than usual dose to achieve desired pain control. Respiratory Complaint Exam Shortness of Air Complaint/Exam Onset/Duration: 5 hours Symptoms Are: Resolved Timing: Intermittent Initial Severity: Severe Current Severity: None Character: Reports Dyspnea at rest Aggravating: Reports Movement Alleviating: Reports Bronchodilators, Oxygen and Upright position Associated Signs and Symptoms: Reports Cough, Wheezing and Rapid breathing; Denies Fever, Chills, Nasal congestion, Calf pain, Calf swelling, Edema or Labored breathing History of Healthcare-Acquired Pneumonia: No Cardiac Risk Factors: Reports CAD and Hypertension Home Oxygen Use: Yes Recent Stress Test: No Recent Echo/LV Function: No Respiratory Distress: None Stridor Present: No Tracheal Deviation: No Subcutaneous Emphysema: No Accessory Muscle Use: No Retractions: Not Present Diminished Breath Sounds: Yes Prolonged Expiratory Phase: Yes Unable to Speak Full Sentences: No Fatigue: No Leg Swelling: No Ulysses's Sign Present: No Differential Diagnoses: Asthma, CHF, Pulmonary Edema, COPD Exacerbation, Pneumonia, SARS, Bronchospasm and GERD Related Surgical History: Reports CABG Review of Systems Review Of Systems Constitutional: Reports Diaphoresis and Weakness; Denies Chills or Fever Respiratory: Reports Cough, Shortness of Breath and Wheezing; Denies Orthopnea or Stridor Cardiac: Reports Chest pain and Irregular heart rate; Denies Lightheadedness or Syncope GI: Reports No symptoms : Reports No symptoms Musculoskeletal: Reports No symptoms Skin: Reports No symptoms Neurological: Reports No symptoms Endocrine: Reports No symptoms Hematologic/Lymphatic: Reports No symptoms PFSH PFSH Medical History Wrist fracture, right Dr Dawson S62.101A - Fracture of unspecified carpal bone, right wrist, initial encounter for closed fracture (ICD-10) Urine frequency R35.0 - Frequency of micturition (ICD-10) UTI (urinary tract infection) N39.0 - Urinary tract infection, site not specified (ICD-10) Rhabdomyolysis M62.82 - Rhabdomyolysis (ICD-10) History of NV (myocardial infarction) I25.2 - Old myocardial infarction (ICD-10) Family History Other No known health problems Social History Smoking and tobacco status: Former smoker Tobacco: How many years used: 30 Second hand smoke exposure: No Alcohol intake: never Substance use type: does not use Special jennifer needs: No Agree to transfusion: Yes Adopted: No Caregiver/support person: No Foster care: No Household members: none Housing: house Marital status: D Lives independently: Yes Daycare: no daycare Number of children: 2 Financial difficulty paying for basics: not very hard service: No FPC: No Current occupational status: retired History of recent travel: No Do you think of yourself as: straight/heterosexual Current gender identity: female Seatbelt use: always Helmet use: No Drives intoxicated or rides with intoxicated jeep driver: No Water heater temperature set < 120 degrees: Yes Working smoke detector in home: Yes Fire extinguisher in home: Yes Carbon monoxide detector in home: Yes Firearms in home: No Surgical History 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 - Presence of aortocoronary bypass graft (ICD-10) Hx of CABG Z95.1 - Presence of aortocoronary bypass graft (ICD-10) History of cholecystectomy Z90.49 - Acquired absence of other specified parts of digestive tract (ICD- 10) History of hysterectomy Z90.710 - Acquired absence of both cervix and uterus (ICD-10) Female Reproductive History Menstrual Hx Hysterectomy: Yes Hx Tubal Ligation: No Physical Exam Physical Exam Appearance: Reports Ill-appearing, No pain distress and Well-nourished Ill-appearing: Moderate Pain Distress: None Eyes: Reports FRAN and EOMI ENT: Reports Ears normal, Nose normal and Oropharynx normal Neck: Supple Respiratory: Reports Breath sounds equal, Breath sounds diminished and Respirations nonlabored Cardiovascular: Reports Pulses normal, No murmur and Irregular rhythm GI/: Reports Soft, Nontender, No masses and No Organomegaly Musculoskeletal: Reports ROM intact, No edema and No calf tenderness Skin: Reports Warm, Normal color and Diaphoretic; Denies Cyanotic Neurological: Reports Alert and Oriented Psychiatric: Reports Affect appropriate Interpretation Radiology Interpretation Radiology Interpretation By: ED Physician Radiology Results: Positive (Right lower lobe infiltrate by my independent interpretation) Exam Interpreted: Portable CXR Course Course 11/26/24 02:35 11/26/24 02:35 Orders, Labs, Meds: Lab Review 11/26/24 11/26/24 11/26/24 02:31 02:35 04:52 WBC 8.27 RBC 4.73 Hgb 14.1 Hct 45.4 MCV 96.0 MCH 29.8 MCHC 31.1 L RDW Coeff of Cathy 14.0 Plt Count 181 Immature Gran % (Auto) 0.4 Neut % (Auto) 75.6 H Lymph % (Auto) 15.8 Jerauld % (Auto) 5.6 Eos % (Auto) 2.2 Baso % (Auto) 0.4 Neut # (Auto) 6.3 Lymph # (Auto) 1.3 [place] # (Auto) 0.5 Eos # (Auto) 0.2 Baso # (Auto) 0.0 Immature Gran # (Auto) 0.0 PT 10.1 INR 0.97 APTT 22.6 L Sodium 144.6 Potassium 3.69 Chloride 108.6 H Carbon Dioxide 24.1 Anion Gap 15.59 BUN 24.7 H Creatinine 0.97 Estimated GFR (MDRD) 55.00 BUN/Creatinine Ratio 25.46 Glucose 132.1 H Lactic Acid 2.29 H Calcium 9.66 Total Bilirubin 0.42 AST 26.6 ALT 15.1 Alkaline Phosphatase 45.7 L Troponin I 0.102 0.443 H NT-Pro-B Natriuret Pep 5230 H Total Protein 6.45 Albumin 3.95 Globulin 2.50 Albumin/Globulin Ratio 1.58 Influ A Molecular Assay Negative by naat Influ B Molecular Assay Negative by naat SARS CoV-2 RNA Rapid SARAH Negative 11/26/24 08:56 WBC RBC Hgb Hct MCV MCH MCHC RDW Coeff of Cathy Plt Count Immature Gran % (Auto) Neut % (Auto) Lymph % (Auto) [place] % (Auto) Eos % (Auto) Baso % (Auto) Neut # (Auto) Lymph # (Auto) [place] # (Auto) Eos # (Auto) Baso # (Auto) Immature Gran # (Auto) PT INR APTT Sodium Potassium Chloride Carbon Dioxide Anion Gap BUN Creatinine Estimated GFR (MDRD) BUN/Creatinine Ratio Glucose Lactic Acid 2.79 H D Calcium Total Bilirubin AST ALT Alkaline Phosphatase Troponin I 0.618 H* NT-Pro-B Natriuret Pep Total Protein Albumin Globulin Albumin/Globulin Ratio Influ A Molecular Assay Influ B Molecular Assay SARS CoV-2 RNA Rapid SARAH Orders Category Date Time Status EKG-(ED ONLY) Stat CARDIO 11/26/24 02:36 Completed NEBULIZER TREATMENT Routine CARDIO 11/26/24 08:37 Active OXYGEN Routine CARDIO 11/26/24 08:36 Active ACTIVITY .Early Mobilization for VTE Prevention CARE 11/26/24 08:35 Active BLOOD GLUCOSE MONITORING (MED/SURG) 0630,1100,1700,2100 CARE 11/26/24 08:36 Active GIVE HS SNACK 2100 CARE 11/26/24 08:36 Active INTAKE & OUTPUT Q8HR CARE 11/26/24 08:35 Active Notify RT of Treatment ONCE CARE 11/26/24 08:37 Active REMINDER: Give Insulin if Needed 0630,1100,1700,2100 CARE 11/26/24 08:35 Active TELEMETRY MONITORING TELE CARE 11/26/24 07:37 Active VITAL SIGNS Q4HR CARE 11/26/24 08:35 Active ADA 1800 GENE. DIET DIETARY 11/26/24 Breakfast Ordered HS SNACK DIETARY 11/26/24 Dinner Ordered ED APPLY O2 .ONCE EMERGENCY 11/26/24 02:36 Active ED PLANT SPECIALIST APPLIED .ONCE EMERGENCY 11/26/24 02:36 Active CBC W/ AUTO DIFF DAILY@0600 LAB 11/27/24 06:00 Ordered CBC W/ AUTO DIFF DAILY@0600 LAB 11/28/24 06:00 Ordered CBC W/ AUTO DIFF Stat LAB 11/26/24 02:35 Completed COMPREHENSIVE METABOLIC PANEL DAILY@0600 LAB 11/27/24 06:00 Ordered COMPREHENSIVE METABOLIC PANEL DAILY@0600 LAB 11/28/24 06:00 Ordered COMPREHENSIVE METABOLIC PANEL Stat LAB 11/26/24 02:35 Completed FLU A/B MOLECULAR Stat LAB 11/26/24 02:31 Completed LACTIC ACID Stat LAB 11/26/24 02:35 Completed LACTIC ACID Stat LAB 11/26/24 08:56 Completed LEGIONELLA URINARY ANTIGEN Routine LAB 11/26/24 08:38 Uncollected NT-PROBNP(ED) Stat LAB 11/26/24 02:35 Completed PT WITH INR Stat LAB 11/26/24 02:35 Completed PTT [PARTIAL THROMBOPLASTIN TIME] Stat LAB 11/26/24 02:35 Completed SARS COV-2 RNA RAPID SARAH Stat LAB 11/26/24 02:31 Completed SPUTUM CULTURE Routine LAB 11/26/24 13:30 Ordered STREP PNEUMO AG, URINE Routine LAB 11/26/24 08:38 Ordered TROPONIN I Stat LAB 11/26/24 02:35 Completed TROPONIN I Stat LAB 11/26/24 04:52 Completed TROPONIN I Stat LAB 11/26/24 08:56 Completed Acetaminophen [Tylenol] Meds 11/26/24 08:35 Active 650 mg PO Q4H PRN Aspirin [Aspirin Chewable] Meds 11/26/24 05:41 Discontinued 324 mg PO ONCE ONE Azithromycin [Zithromax] Meds 11/26/24 09:00 Active 500 mg PO DAILY Ceftriaxone 1 gm Vial [Rocephin 1 gm Vial] Meds 11/26/24 07:38 Discontinued 2 gm IVP ONCE ONE Ceftriaxone/D5w 1 gm Premix [Rocephin 1 gm/50 ml D5w] Meds 11/27/24 09:00 Active 1 gm in 50 ml IV DAILY Furosemide [Lasix] Meds 11/26/24 05:48 Discontinued 20 mg IVP ONCE ONE Furosemide [Lasix] Meds 11/26/24 14:00 Active 20 mg IVP Q8HR Ipratropium/Albuterol Neb [Duoneb] Meds 11/26/24 02:46 Discontinued 3 ml NEB ONCE ONE Ipratropium/Albuterol Neb [Duoneb] Meds 11/26/24 12:00 Active 3 ml NEB RTQ6H Magnesium Sulfate [Magnesium Sulfate 1 gm/2 ml Vial] Meds 11/26/24 03:49 Discontinued 1 gm .ROUTE .STK-MED ONE Magnesium Sulfate [Magnesium Sulfate 1 gm/2 ml Vial] Meds 11/26/24 02:49 Discontinued 1 gm IVP ONCE ONE Methylprednisolone Sod Succ/Pf [Solu-Medrol 125 mg] Meds 11/26/24 03:41 Discontinued 125 mg .ROUTE .STK-MED ONE Methylprednisolone Sod Succ/Pf [Solu-Medrol 125 mg] Meds 11/26/24 02:37 Discontinued 125 mg IVP ONCE ONE Methylprednisolone Sod Succ/Pf [Solu-Medrol 40 mg] Meds 11/26/24 13:00 Active 40 mg IVP Q8HR CHEST, 2 VIEWS PA & LAT Stat RADS 11/26/24 02:36 Completed Medications Generic Name Dose Route Start Last Admin Trade Name Freq PRN Reason Stop Dose Admin Acetaminophen 650 mg 11/26/24 08:35 Acetaminophen 325 Mg Tablet PO Q4H PRN Mild Pain Albuterol Sulfate 2 puff 11/26/24 13:13 Albuterol Sulfate 8 Gm Inhaler IH Q4-6H PRN Wheezing Albuterol/Ipratropium 3 ml 11/26/24 12:00 11/26/24 12:44 Ipratropium/Albuterol Vial.Neb NEB 3 ml RTQ6H SANDI Administration Allopurinol 200 mg 11/26/24 13:30 Allopurinol 100 Mg Tablet PO DAILY [facility] Azithromycin 500 mg 11/26/24 09:00 Azithromycin 250 Mg Tablet PO 11/29/24 08:59 DAILY [facility] Buspirone HCl 10 mg 11/26/24 21:00 Buspirone Hcl 10 Mg Tablet PO 2XD [facility] Cholecalciferol 1,000 unit 11/27/24 09:00 Cholecalciferol (Vitamin D3) 1,000 Unit (25 Mcg) Tablet PO DAILY [facility] Citalopram Hydrobromide 40 mg 11/26/24 13:15 Citalopram Hydrobromide 20 Mg Tablet PO DAILY [facility] Clopidogrel Bisulfate 75 mg 11/26/24 13:15 Clopidogrel Bisulfate 75 Mg Tablet PO DAILY [facility] Fenofibrate 54 mg 11/27/24 09:00 Fenofibrate 54 Mg Tablet PO DAILY [facility] Ferrous Sulfate 324 mg 11/27/24 06:00 Ferrous Sulfate 324 Mg Tablet. PO QDAC2 [facility] Fluticasone Propionate 1 spray 11/26/24 21:00 Fluticasone Propionate 16 Gm Nasal Warren ERNESTO BID SANDI Furosemide 20 mg 11/26/24 14:00 Furosemide Inj 20 Mg/2 Ml Vial IVP Q8HR SANDI CEFTRIAXONE/D5W 1 GM PREMIX 1 gm in 50 mls @ 100 mls/hr 11/27/24 09:00 Rocephin 1 Gm/50 Ml D5w IV 11/30/24 08:59 DAILY [facility] Insulin Human Regular 0 unit 11/26/24 13:16 Insulin Regular, Human 100 Unit/Ml (10ml) Vial SUBCUT PRN PRN Hyperglycemia Protocol Lisinopril 10 mg 11/26/24 13:15 Lisinopril 10 Mg Tablet PO DAILY [facility] Methylprednisolone Sodium Succinate 40 mg 11/26/24 13:00 Methylprednisolone Sod Succ/Pf 40 Mg/Ml Vial IVP Q8HR [facility] Metoprolol Tartrate 12.5 mg 11/27/24 09:00 Metoprolol Tartrate 25 Mg Tablet PO DAILY [facility] Non-Formulary Medication 1 spray 11/26/24 21:00 Azelastine [Astepro Allergy] ERNESTO BID SANDI Oxybutynin Chloride 10 mg 11/26/24 13:30 Oxybutynin Chloride 5 Mg Tab.Er.24 PO DAILY SANDI Pantoprazole Sodium 40 mg 11/27/24 06:00 Pantoprazole Sodium 40 Mg Tablet.Dr PO QDAC2 [facility] Potassium Chloride 20 meq 11/27/24 07:30 Potassium Chloride 20 Meq Tab PO DAILYWM2 [facility] Pravastatin Sodium 80 mg 11/26/24 13:15 Pravastatin Sodium 40 Mg Tablet PO DAILY [facility] Prednisolone Acetate 2 drop 11/26/24 21:00 Prednisolone Acetate 10 Ml Op Susp EACHEYE BID SANDI Discontinued Medications Generic Name Dose Route Start Last Admin Trade Name Freq PRN Reason Stop Dose Admin Albuterol/Ipratropium 3 ml 11/26/24 02:46 11/26/24 03:11 Ipratropium/Albuterol Vial.Neb NEB 11/26/24 02:47 3 ml ONCE ONE Administration Aspirin 324 mg 11/26/24 05:41 11/26/24 05:47 Aspirin 81 Mg Tab.Chew PO 11/26/24 05:42 324 mg ONCE ONE Administration Ceftriaxone Sodium 2 gm 11/26/24 07:38 11/26/24 08:03 Ceftriaxone 1 Gm Vial IVP 11/26/24 07:39 2 gm ONCE ONE Administration Furosemide 20 mg 11/26/24 05:48 11/26/24 06:33 Furosemide Inj 20 Mg/2 Ml Vial IVP 11/26/24 05:49 20 mg ONCE ONE Administration Magnesium Sulfate 1 gm 11/26/24 02:49 11/26/24 02:56 Magnesium Sulfate Vial 1 Gm/2 Ml Vial IVP 11/26/24 02:50 1 gm ONCE ONE Administration Methylprednisolone Sodium Succinate 125 mg 11/26/24 02:37 11/26/24 02:48 Methylprednisolone Sod Succ/Pf 125 Mg/2 Ml Vial IVP 11/26/24 02:38 125 mg ONCE ONE Administration Non-Formulary Medication 325 mg 11/26/24 13:15 Ferrous Fumarate PO DAILY SANDI EXAM: TWO-VIEW CHEST HISTORY: Dyspnea COMPARISON: Single-view chest 08/07/2022. FINDINGS: Stable cardiomegaly.. The aortic arch is atherosclerotic. There has been prior mediastinotomy. The lungs are hyperinflated.. There is calcified granuloma the right lung base interstitial prominence is noted peripherally at the right lung base. There is no pleural effusion. IMPRESSION: Stable cardiomegaly. Prior mediastinotomy. Bilateral hyperinflation. Right basilar interstitial infiltrate Dictated By: ADRIAN DOVE Vital Signs: Temp Pulse Resp BP Pulse Ox O2 Del Method O2 Flow Rate 11/26/24 10:19 98 F 60 18 95 Nasal Cannula 2 11/26/24 10:00 94 L Nasal Cannula 2 11/26/24 02:30 2.5 11/26/24 02:26 98.1 F 78 30 H 150/71 H 93 L Discharge Plan Discharge Patient Disposition: PLACED OBSERVATION Discharge Problem: Community acquired pneumonia of right lower lobe of lung, Acute on chronic hypoxic respiratory failure Coronary artery disease Qualifiers: Coronary Disease-Associated Artery/Lesion type: [place] artery [place] vs. transplanted heart: [place] heart Associated angina: without angina Qualified Code(s): I25.10 - Atherosclerotic heart disease of [place] coronary artery without angina pectoris Congestive heart failure with left ventricular diastolic dysfunction Qualifiers: Congestive heart failure chronicity: chronic Qualified Code(s): I50.32 - Chronic diastolic (congestive) heart failure Did you review [place] MEDIA LIAISON OFFICER for ALL controlled substances?: Not Applicable ED Provider: MARIAH LOZANO Condition: Stable Physician Progress Note Physician Progress Note: Handoff from Dr. Brito History of COPD. Chronic respiratory failure requiring oxygen therapy at home. Oxygen did not help at home. No chest pressure. Initial troponin 0.1. Climbed to 0.4. These levels were 2 hours apart. Having no chest discomfort at this time. Breathing is much better after nebulizer treatments and steroids. Laboratory studies with elevated BNP to 5200. Troponin went from 0.1-0.4. Repeat troponin was 0.6. Patient known to have underlying coronary artery disease but she is having no symptoms at this time. Subendocardial injury is a possibility. Suspect it is more of a strain reaction. White count is normal. Lactic acid was elevated initially and on repeat it was even higher. IV fluids have not been given but IV is present. Chest x-ray with right lower lobe infiltrate. This is new compared to the study done in 2022 IV Rocephin given. Discussed with hospitalist. Will place in observation for right lower lobe infiltrate and acute exacerbation of chronic hypoxic respiratory failure Comorbidities include heart disease, CHF with elevated BNP, COPD, and diabetes
[2024-11-26] MEDS: ROCEPHIN 1 GM VIAL IVP ONE (08:03)
[2024-11-26] MEDS ORDERED: TYLENOL PO PRN (08:35)
[2024-11-26 11:54] VITALS: BMI 34.0
[2024-11-26] MEDS: DUONEB NEB SCH (12:44)
--- NOTE | 2024-11-26 13:09 | PCM ---
Date of Service Date Seen by Provider: 11/26/24 Time Seen by Provider: 12:30 Admit Day/Time Admission Date: 11/26/24 Reason for Admission Chief Complaint: CHRONIC HYPOXIC RESPIRATORY FAILURE, CAD Hospital Provider Hospital Provider: WENDIE PALACIOS, [facility] [place] Primary Care Physician Primary Care Physician: AUSTIN IRAHETA MD History of Present Illness History of Present Illness: 84-year-old female with past medical history of diastolic heart failure, COPD with home oxygen requirement of 2 L at bedtime and as needed, hypertension, diabetes type 2, and GERD presented to the ER with shortness of breath. Patient states that over the last 2 days shortness of breath has continued to worsen. States last night she put her oxygen on and lay down to go to sleep and was unable to lay flat. Once laying down breathing continue to worsen. States she does have nebulizer treatments at home but has not been using them says they are more of a pain to do that and they are helpful. Denies any chest pain palpitations nausea vomiting. When asked about fever states she did not check it but has been sweaty at times. Does report nonproductive cough. Has been wearing her oxygen continuously. In ER, BNP found to be elevated as well as troponin trending up. Likely NSTEMI type 2. No active chest pain or ST segment changes on EKG. Respirations were 30 on arrival to ER. Given neb, steroids, lasix, and rocephin. Admitted to med/surg inpatient. Case Discussed With Case Discussed With: Patient's case was discussed with the ER Physicians, Dr. Nagy. 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 - Presence of aortocoronary bypass graft (ICD-10) Hx of CABG Z95.1 - Presence of aortocoronary bypass graft (ICD-10) History of cholecystectomy Z90.49 - Acquired absence of other specified parts of digestive tract (ICD- 10) History of hysterectomy Z90.710 - Acquired absence of both cervix and uterus (ICD-10) Family History Other No known health problems Social History Smoking and tobacco status: Former smoker Tobacco: How many years used: 30 Second hand smoke exposure: No Alcohol intake: never Substance use type: does not use Special jennifer needs: No Agree to transfusion: Yes Adopted: No Caregiver/support person: No Foster care: No Household members: none Housing: house Marital status: D Lives independently: Yes Daycare: no daycare Number of children: 2 Financial difficulty paying for basics: not very hard service: No long term: No Current occupational status: retired History of recent travel: No Do you think of yourself as: straight/heterosexual Current gender identity: female Seatbelt use: always Helmet use: No Drives intoxicated or rides with intoxicated entry level truck driver: No Water heater temperature set < 120 degrees: Yes Working smoke detector in home: Yes Fire extinguisher in home: Yes Carbon monoxide detector in home: Yes Firearms in home: No Allergies Allergies Allergy/AdvReac Type Severity Reaction Status Date / Time bacitracin (From Neosporin AdvReac Rash Verified 11/26/24 02:31 ([id number])) bacitracin zinc (From AdvReac Rash Verified 11/26/24 02:31 Neosporin ([id number])) neomycin sulfate (From AdvReac Rash Verified 11/26/24 02:31 Neosporin ([id number])) Penicillins AdvReac Unknown Verified 11/26/24 02:31 polymyxin B (From Neosporin AdvReac Rash Verified 11/26/24 02:31 ([id number])) LIPITOR AdvReac Intermediate Unknown Uncoded 11/26/24 02:31 TAPE AdvReac Rash Uncoded 11/26/24 02:31 Current Medications Home Medications Acetaminophen (Acetaminophen 325 Mg Tablet) 650 mg PO Q4H PRN PRN Reason: Mild Pain Albuterol Sulfate (Albuterol Sulfate 8 Gm Inhaler) 2 puff IH Q4-6H PRN PRN Reason: Wheezing Albuterol/Ipratropium (Ipratropium/Albuterol Vial.Neb) 3 ml NEB RTQ6H [facility] Last Admin: 11/26/24 12:44 Dose: 3 ml Allopurinol (Allopurinol 100 Mg Tablet) 200 mg PO DAILY [facility] Azithromycin (Azithromycin 250 Mg Tablet) 500 mg PO DAILY [facility] Stop: 11/29/24 08:59 Buspirone HCl (Buspirone Hcl 10 Mg Tablet) 10 mg PO 2XD [facility] Cholecalciferol (Cholecalciferol (Vitamin D3) 1,000 Unit (25 Mcg) Tablet) 1,000 unit PO DAILY [facility] Citalopram Hydrobromide (Citalopram Hydrobromide 20 Mg Tablet) 40 mg PO DAILY [facility] Clopidogrel Bisulfate (Clopidogrel Bisulfate 75 Mg Tablet) 75 mg PO DAILY [facility] Fenofibrate (Fenofibrate 54 Mg Tablet) 54 mg PO DAILY [facility] Fluticasone Propionate (Fluticasone Propionate 16 Gm Nasal [place]) 1 spray ERNESTO BID [facility] Furosemide (Furosemide Inj 20 Mg/2 Ml Vial) 20 mg IVP Q8HR [facility] CEFTRIAXONE/D5W 1 GM PREMIX (Rocephin 1 Gm/50 Ml D5w) 1 gm in 50 mls @ 100 mls/hr IV DAILY [facility] Stop: 11/30/24 08:59 Insulin Human Regular (Insulin Regular, Human 100 Unit/Ml (10ml) Vial) 0 unit SUBCUT PRN PRN; Protocol PRN Reason: Hyperglycemia Lisinopril (Lisinopril 10 Mg Tablet) 10 mg PO DAILY [facility] Methylprednisolone Sodium Succinate (Methylprednisolone Sod Succ/Pf 40 Mg/Ml Vial) 40 mg IVP Q8HR [facility] Metoprolol Tartrate (Metoprolol Tartrate 25 Mg Tablet) 12.5 mg PO DAILY [facility] Non-Formulary Medication (Ferrous Fumarate) 325 mg PO QDAY [facility] Non-Formulary Medication (Azelastine [Astepro Allergy]) 1 spray ERNESTO BID [facility] Oxybutynin Chloride (Oxybutynin Chloride 5 Mg Tab.Er.24) 10 mg PO DAILY [facility] Pantoprazole Sodium (Pantoprazole Sodium 40 Mg Tablet.Dr) 40 mg PO QDAC2 [facility] Potassium Chloride (Potassium Chloride 20 Meq Tab) 20 meq PO DAILYWM2 [facility] Pravastatin Sodium (Pravastatin Sodium 40 Mg Tablet) 80 mg PO DAILY [facility] Prednisolone Acetate (Prednisolone Acetate 10 Ml Op Susp) 2 drop EACHEYE BID [facility]I cholecalciferol (vitamin D3) 25 mcg (1,000 unit) capsule (Vitamin D3) 1,000 mg PO DAILY 03/01/15 [History Confirmed 11/26/24] albuterol sulfate 90 mcg/actuation aerosol inhaler 2 puff inhalation Q4-6H PRN Bronchodilation #100 grams 08/11/22 [Rx Confirmed 11/26/24] ferrous fumarate 325 mg (106 mg iron) tablet 325 mg PO QDAY 08/17/22 [History Confirmed 11/26/24] polyethylene glycol 3350 17 gram/dose oral powder (Miralax) 17 g PO QDAY PRN constipation 08/17/22 [History Confirmed 11/26/24] ipratropium 0.5 mg-albuterol 3 mg (2.5 mg base)/3 mL nebulization soln 3 ml inhalation QID PRN shortness of breath #180 mL 08/19/23 [Rx Confirmed 11/26/24] oxybutynin chloride 10 mg tablet,extended release 24 hr 10 mg PO QDAY 12/12/23 [History Confirmed 11/26/24] metformin 500 mg tablet 500 mg PO DAILY #90 tabs 06/02/24 [Rx Confirmed 0 11/26/24] azelastine 205.5 mcg (0.15 %) nasal spray (Astepro Allergy) 1 spray intranasal BID #11 mL 08/13/24 [Rx Confirmed 11/26/24] fluticasone propionate 50 mcg/actuation nasal spray,suspension (Flonase Allergy Relief) 1 spray intranasal BID #16 grams 08/13/24 [Rx Confirmed 11/26/24] allopurinol 100 mg tablet 200 mg (2 x 100 mg) PO DAILY #60 film 08/27/24 [Rx Confirmed 11/26/24] metoprolol tartrate 25 mg tablet 12.5 mg (1/2 x 25 mg) PO DAILY #30 tabs 08/27/24 [Rx Confirmed 11/26/24] citalopram 40 mg tablet 40 mg PO DAILY #30 tabs 09/24/24 [Rx Confirmed 11/26/24] clopidogrel 75 mg tablet 75 mg PO DAILY #30 ea 09/24/24 [Rx Confirmed 11/26/24] furosemide 20 mg tablet 20 mg PO DAILY #30 tabs 09/24/24 [Rx Confirmed 11/26/24] lisinopril 10 mg tablet 10 mg PO DAILY #30 tabs 09/24/24 [Rx Confirmed 11/26/24] pantoprazole 40 mg tablet,delayed release 40 mg PO DAILY #30 tabs 09/24/24 [Rx Confirmed 11/26/24] potassium chloride 20 mEq tablet,extended release(part/cryst) 20 meq PO DAILY #30 ea 09/24/24 [Rx Confirmed 11/26/24] pravastatin 80 mg tablet 80 mg PO DAILY #30 tabs 09/24/24 [Rx Confirmed 11/26/24] buspirone 10 mg tablet 10 mg PO 2XD #60 tabs 11/19/24 [Rx Confirmed 11/26/24] fenofibrate 54 mg tablet 54 mg PO DAILY #30 tabs 11/19/24 [Rx Confirmed 11/26/24] prednisolone acetate 1 % eye drops,suspension 2 drp ophthalmic (eye) BID 11/26/24 [History Confirmed 11/26/24] Opioid Naive vs. Tolerant Does Patient Take Opioids?: No Is Patient Opioid Naive?: Yes What is Opioid Naive?: *Opioid Naive implies the patient is not already taking opioids or not chronically receiving opioids on a daily basis. *PRN dosing is not "usually" associated with tolerance. *Patients are at higher risk of over-sedation and aspiration. Is Patient Opioid Tolerant?: No What is Opioid Tolerant?: *Opioid Tolerance implies less than the expected response to an opioid. *Acquired tolerance is defined by the patient taking 60mg of oral morphine daily (or equianalgesic dose of another opioid) for 1 week or more. *Often associated with chronic pain. *May take more than usual dose to achieve desired pain control. Review of Systems Constitutional: Reports Chills and Sweats Head: Reports Normocephalic Eyes: Reports No symptoms Ears: Reports No symptoms Nose: Reports No symptoms Mouth: Reports No symptoms Throat: Reports No symptoms Cardiovascular: Reports No symptoms Respiratory: Reports Cough and Shortness of air Gastrointestinal: Reports No symptoms Genitourinary: Reports No Symptoms Musculoskeletal: Reports No symptoms Endocrine: Reports No symptoms Hematology: Reports No symptoms Immunology: Reports No symptoms Neurological: Reports No symptoms Psychiatric: Reports No symptoms Physical examination Most Recent Vital Signs: Most Recent Vital Signs Temperature 98 F 11/26/24 10:19 Temperature Source Oral 11/26/24 10:19 Temperature Source Infrared 11/26/24 02:26 Pulse Rate 60 11/26/24 10:19 Respiratory Rate 18 11/26/24 10:19 Blood Pressure 150/71 H 11/26/24 02:26 Blood Pressure Right Arm 129/60 11/26/24 10:19 Blood Pressure Position Sitting 11/26/24 10:19 O2 Sat by Pulse Oximetry 95 11/26/24 10:19 Oxygen Delivery Method Nasal Cannula 11/26/24 10:19 Oxygen Flow Rate 2 11/26/24 10:19 Height 5 ft 4 in 11/26/24 10:19 Weight 89.9 kg 11/26/24 10:19 Telemetry Heart Rate 60 07/25/23 13:49 Appearance: Positive No Apparent Distress and Alert and Oriented x3 Skin: Positive Warm and Good Turgor HEENT: Positive Normocephalic and PERRLA Neck: Positive Supple and Midline Trachea Chest/Lungs: Positive Symmetrical With Equal Breath Sounds and Clear to Auscultation Bilaterally (diminished); Negative Rales, Rhonci, Wheezes or Good Air Movement all 4 Lung [place] Heart: Positive RRR and Pulses Normal; Negative Irregular Rhythm, Tachycardia or Bracycardia GI/: Positive Soft, Nontender, Bowel Sounds Normal and No Distention Musculoskeletal: Positive Not Examined Extremities: Positive Edema (trace BLE), Intact Peripheral Pulses, Stable Joints Without Laxity and Good ROM in All Joints Neurological: Positive Sensation Intact, Motor intact, Reflexes Intact, Alert, Oriented and Muscle Strength 5/5 in Upper and Lower Extremities Bilaterally Labs This Visit Labs This Visit: Labs This Visit 11/26/24 11/26/24 11/26/24 02:31 02:35 04:52 WBC 8.27 RBC 4.73 Hgb 14.1 Hct 45.4 MCV 96.0 MCH 29.8 MCHC 31.1 L RDW Coeff of Cathy 14.0 Plt Count 181 Immature Gran % (Auto) 0.4 Neut % (Auto) 75.6 H Lymph % (Auto) 15.8 Cochran % (Auto) 5.6 Eos % (Auto) 2.2 Baso % (Auto) 0.4 Neut # (Auto) 6.3 Lymph # (Auto) 1.3 Cochran # (Auto) 0.5 Eos # (Auto) 0.2 Baso # (Auto) 0.0 Immature Gran # (Auto) 0.0 PT 10.1 INR 0.97 APTT 22.6 L Sodium 144.6 Potassium 3.69 Chloride 108.6 H Carbon Dioxide 24.1 Anion Gap 15.59 BUN 24.7 H Creatinine 0.97 Estimated GFR (MDRD) 55.00 BUN/Creatinine Ratio 25.46 Glucose 132.1 H Lactic Acid 2.29 H Calcium 9.66 Total Bilirubin 0.42 AST 26.6 ALT 15.1 Alkaline Phosphatase 45.7 L Troponin I 0.102 0.443 H NT-Pro-B Natriuret Pep 5230 H Total Protein 6.45 Albumin 3.95 Globulin 2.50 Albumin/Globulin Ratio 1.58 Influ A Molecular Assay Negative by naat Influ B Molecular Assay Negative by naat SARS CoV-2 RNA Rapid SARAH Negative 11/26/24 08:56 WBC RBC Hgb Hct MCV MCH MCHC RDW Coeff of Cathy Plt Count Immature Gran % (Auto) Neut % (Auto) Lymph % (Auto) [place] % (Auto) Eos % (Auto) Baso % (Auto) Neut # (Auto) Lymph # (Auto) Cochran # (Auto) Eos # (Auto) Baso # (Auto) Immature Gran # (Auto) PT INR APTT Sodium Potassium Chloride Carbon Dioxide Anion Gap BUN Creatinine Estimated GFR (MDRD) BUN/Creatinine Ratio Glucose Lactic Acid 2.79 H D Calcium Total Bilirubin AST ALT Alkaline Phosphatase Troponin I 0.618 H* NT-Pro-B Natriuret Pep Total Protein Albumin Globulin Albumin/Globulin Ratio Influ A Molecular Assay Influ B Molecular Assay SARS CoV-2 RNA Rapid SARAH Imaging Imaging: EXAM: TWO-VIEW CHEST HISTORY: Dyspnea COMPARISON: Single-view chest 08/07/2022. FINDINGS: Stable cardiomegaly.. The aortic arch is atherosclerotic. There has been prior mediastinotomy. The lungs are hyperinflated.. There is calcified granuloma the right lung base interstitial prominence is noted peripherally at the right lung base. There is no pleural effusion. IMPRESSION: Stable cardiomegaly. Prior mediastinotomy. Bilateral hyperinflation. Right basilar interstitial infiltrate Review Statement Review Statement: I have independently reviewed and interpreted the labs/EKGs/imaging that were ordered by the ER provider. I have reviewed all outside records that are available currently in our EMR including imaging/notes/labs from previous visits. Plan Plan: 1. Acute Hypoxic Respiratory Failure in the setting of CHF exacerbation and CAP - wean oxygen to home requirements as tolerated, nebs, steroids 2. CAP - rocephin and azith, steroids, nebs, legionella, strep pneumo, and sputum ordered 3. Acute on Chronic Diastolic Heart Failure - last EF on 09/16/23 43%, stress echo normal at that time as well, lasix 20 mg IV Q8H, I&O, daily weight, repeat echo tomorrow 4. NSTEMI - troponins trending up, no active chest pain or changes on EKG, trend and monitor, likely type 2 due to above 5. HTN - chronic, continue home medications 6. COPD - does not appear in exacerbation at this time, typically only wears oxygen prn and 2L at bedtime DVT Prophylaxis: Plavix Time Spent: Greater than 80 minutes spent with patient, 50% of the time spent with this patient was devoted to counseling and coordination of care. [facility] minutes spent discussing advance care planning. Disposition: Admit to: Med/Surg Inpatient Full Code Discussed Plan of Care with Dr. Renetta Iraheta. Medications Medication Orders: Medications Ordered Category Date Time Status Acetaminophen [Tylenol] Meds 11/26/24 08:35 Active 650 mg PO Q4H PRN Azithromycin [Zithromax] Meds 11/26/24 09:00 Active 500 mg PO DAILY Ceftriaxone/D5w 1 gm Premix [Rocephin 1 gm/50 ml D5w] Meds 11/27/24 09:00 Active 1 gm in 50 ml IV DAILY Furosemide [Lasix] Meds 11/26/24 14:00 Active 20 mg IVP Q8HR Ipratropium/Albuterol Neb [Duoneb] Meds 11/26/24 12:00 Active 3 ml NEB RTQ6H Methylprednisolone Sod Succ/Pf [Solu-Medrol 40 mg] Meds 11/26/24 13:00 Active 40 mg IVP Q8HR
[2024-11-26] MEDS ORDERED: VENTOLIN HFA IH PRN (13:13)
[2024-11-26] MEDS: PLAVIX PO SCH (14:21)
[2024-11-26] MEDS: LASIX IVP SCH (14:21)
[2024-11-26] MEDS: SOLU-MEDROL 40 MG IVP SCH (14:21)
[2024-11-26] MEDS: DITROPAN XL PO SCH (14:22)
[2024-11-26] MEDS: CELEXA PO SCH (14:22)
[2024-11-26] MEDS: ZESTRIL PO SCH (14:22)
[2024-11-26] MEDS: ZITHROMAX PO SCH (14:23)
[2024-11-26] MEDS: PRAVACHOL PO SCH (14:23)
[2024-11-26] MEDS: HUMULIN R (10ML) SUBCUT PRN (14:31)
[2024-11-26] MEDS: ZYLOPRIM PO SCH (14:43)
[2024-11-26] MEDS ORDERED: [UNRECOGNIZED DRUG - REMARK] NAS SCH (21:00)
[2024-11-26] MEDS: FLONASE NAS SCH (21:33)
[2024-11-26] MEDS: ASTELIN 0.1% NAS SCH (21:33)
[2024-11-26] MEDS: PRED FORTE 1% EACHEYE SCH (21:34)
[2024-11-26] MEDS: BUSPAR PO SCH (21:34)
[2024-11-27 05:41] LABS: BASOPHILS % (AUTO) 0.1 % (0.0-3.0); EOSINOPHILS % (AUTO) 0.1 % (0.0-7.0); HEMATOCRIT 44.8 % (37.0-47.0); HEMOGLOBIN 14.1 g/dl (12.0-16.0); IMMATURE GRANULOCYTE % (AUTO) 0.4 % (0.0-5.0); LYMPHOCYTES # (AUTO) 0.9 K/uL (0.60-3.4); LYMPHOCYTES % (AUTO) 9.1 (10.0-50.0); MEAN CORPUSCULAR HEMOGLOBIN 30.2 pg (27.0-31.0); MEAN CORPUSCULAR HGB CONC 31.5 (31.8-35.4); MEAN CORPUSCULAR VOLUME 95.9 fl (81.0-99.0); MONOCYTES # (AUTO) 0.4 K/uL (0.4-2.0); MONOCYTES % (AUTO) 3.8 (0-10); NEUTROPHILS # (AUTO) 8.5 K/ul (2.0-6.9); NEUTROPHILS % (AUTO) 86.5 % (42.2-75.2); PLATELET COUNT 192 10^3/uL (140-440); RDW COEFFICIENT OF VARIATION 14.3 % (11.6-14.8); RED BLOOD COUNT 4.67 10^6/ul (4.20-5.40); WHITE BLOOD COUNT 9.86 K/ul (4.6-10.2)
[2024-11-27] MEDS: FERROUS SULFATE PO SCH (05:41)
[2024-11-27] MEDS: PROTONIX PO SCH (05:41)
[2024-11-27 05:55] LABS: ALANINE AMINOTRANSFERASE 15.6 U/L (0-35); ALBUMIN 4.01 g/dL (3.5-5.0); ALKALINE PHOSPHATASE 38.7 U/L (53-141); ASPARTATE AMINO TRANSFERASE 20.7 U/L (14-36); BILIRUBIN,TOTAL 0.46 mg/dL (0.2-1.3); BLOOD UREA NITROGEN 31.9 mg/dL (7-17); CALCIUM 10.06 mg/dL (8.4-10.2); CHLORIDE 104.4 mmol/L (98-107); CREATININE 0.97 mg/dL (0.60-1.30); GLUCOSE 155.3 mg/dL (74-106); POTASSIUM 3.99 mmol/L (3.5-5.1); SODIUM 143.2 mmol/L (134.5-145); TOTAL PROTEIN 6.52 g/dL (6.3-8.2)
[2024-11-27] MEDS: TRIGLIDE PO SCH (09:08)
[2024-11-27] MEDS: ROCEPHIN 1 GM/50 ML D5W 1 GM/50 ML BAG IV SCH (09:08)
[2024-11-27] MEDS: CELEXA PO SCH (09:09)
[2024-11-27] MEDS: BUSPAR PO SCH (09:09)
[2024-11-27] MEDS: VITAMIN D PO SCH (09:10)
[2024-11-27] MEDS: K-DUR PO SCH (09:10)
[2024-11-27] MEDS: LOPRESSOR PO SCH (09:11)
--- NOTE | 2024-11-27 11:04 | PCM.PROG ---
Date/Time Seen Date Seen by Provider: 11/27/24 Time Seen by Provider: 09:15 Provider Provider: WENDIE PALACIOS, [facility] Chief Complaint Chief Complaint: CHRONIC HYPOXIC RESPIRATORY FAILURE, CAD Subjective Subjective: States breathing feels better today. Discussed extensively tremor that is persistent. Worse this am. Reports she was started on celexa about 1 year ago and has had this worsening tremor since about 6-8 months ago. Also taking buspar. Dosage of medications have also been increased. Does not feel they are helping with her anxiety. Of concern these medications may be causing her tremor. States she follows with Neurology at [facility] but misunderstood and follows with Urology per [facility] chart. No neurologist noted in PCP notes. Objective Appearance: Positive No Apparent Distress and Alert and Oriented x3 Chest/Lungs: Positive Symmetrical With Equal Breath Sounds and Clear to Auscultation Bilaterally Heart: Positive RRR and Pulses Normal GI/: Positive Soft, Nontender, Bowel Sounds Normal and No Distention Musculoskeletal: Positive Not Examined Neurological: Positive Sensation Intact, Motor intact, Reflexes Intact, Alert, Oriented and Other (continuous tremor that worsens with purposeful movement) Vital Signs Vital Signs: Vital Signs: Last 24 Hours 11/26/24 13:00 11/26/24 14:00 11/26/24 14:00 Temperature 96.8 F L Temperature Source Tympanic Pulse Rate 59 L Respiratory Rate 20 Blood Pressure 147/75 H Blood Pressure Mean 99 Blood Pressure Location Right Arm Blood Pressure Position Supine O2 Sat by Pulse Oximetry 95 92 L Oxygen Delivery Method Nasal Cannula Room Air Oxygen Flow Rate 2.5 Telemetry Type Remote Telemetry Telemetry Monitoring Continues Irregular Telemetry Rate (Approximate) 70-80 BPM Telemetry Heart Rate 70 Telemetry SPO2 EKG PA Interval 0.12 EKG QRS Interval 0.07 Telemetry Strip Reading NSR 11/26/24 18:00 11/26/24 19:00 11/26/24 19:08 Temperature 97.3 F L Temperature Source Temporal Artery Scan Pulse Rate 64 Respiratory Rate 20 Blood Pressure 124/60 Blood Pressure Mean 81 Blood Pressure Location Right Arm Blood Pressure Position Supine O2 Sat by Pulse Oximetry 93 L Oxygen Delivery Method Nasal Cannula Nasal Cannula Oxygen Flow Rate 2.5 2.5 Telemetry Type Remote Telemetry Telemetry Monitoring Continues Irregular Telemetry Rate (Approximate) Telemetry Heart Rate 66 Telemetry SPO2 EKG PA Interval 0.14 EKG QRS Interval 0.09 Telemetry Strip Reading SR w/ PVCS 11/26/24 20:00 11/26/24 22:00 11/27/24 01:00 Temperature 97.6 F Temperature Source Oral Pulse Rate 67 Respiratory Rate 22 H 20 Blood Pressure 143/70 H Blood Pressure Mean 94 Blood Pressure Location Right Arm Blood Pressure Position O2 Sat by Pulse Oximetry 91 L Oxygen Delivery Method Nasal Cannula Nasal Cannula Oxygen Flow Rate 2.5 2.5 Telemetry Type Remote Telemetry Telemetry Monitoring Continues Irregular Telemetry Rate (Approximate) Telemetry Heart Rate 61 Telemetry SPO2 94 EKG PA Interval 0.20 EKG QRS Interval 0.09 Telemetry Strip Reading SR WITH PVC'S 11/27/24 02:00 11/27/24 05:11 11/27/24 05:31 Temperature 97.7 F 97.9 F Temperature Source Temporal Artery Scan Temporal Artery Scan Pulse Rate 59 L 66 Respiratory Rate 18 20 Blood Pressure 151/56 H 148/68 H Blood Pressure Mean 87 94 Blood Pressure Location Right Arm Right Arm Blood Pressure Position Supine O2 Sat by Pulse Oximetry 96 92 L 99 Oxygen Delivery Method Nasal Cannula Nasal Cannula Nasal Cannula Oxygen Flow Rate 2.5 2.5 2.5 Telemetry Type Telemetry Monitoring Irregular Telemetry Rate (Approximate) Telemetry Heart Rate Telemetry SPO2 EKG PA Interval EKG QRS Interval Telemetry Strip Reading 11/27/24 07:00 Temperature Temperature Source Pulse Rate Respiratory Rate Blood Pressure Blood Pressure Mean Blood Pressure Location Blood Pressure Position O2 Sat by Pulse Oximetry Oxygen Delivery Method Oxygen Flow Rate Telemetry Type Remote Telemetry Telemetry Monitoring Continues Irregular Telemetry Rate (Approximate) Telemetry Heart Rate 53 L Telemetry SPO2 92 L EKG PA Interval 0.20 EKG QRS Interval 0.08 Telemetry Strip Reading sb w/ pvc Lab Results Lab Results: Lab Results: Last 24 Hours 11/27/24 11/26/24 05:05 12:35 WBC 9.86 RBC 4.67 Hgb 14.1 Hct 44.8 MCV 95.9 MCH 30.2 MCHC 31.5 L RDW Coeff of Cathy 14.3 Plt Count 192 Immature Gran % (Auto) 0.4 Neut % (Auto) 86.5 H Lymph % (Auto) 9.1 L [place] % (Auto) 3.8 Eos % (Auto) 0.1 Baso % (Auto) 0.1 Neut # (Auto) 8.5 H Lymph # (Auto) 0.9 [place] # (Auto) 0.4 Eos # (Auto) 0.0 Baso # (Auto) 0.0 Immature Gran # (Auto) 0.0 Sodium 143.2 Potassium 3.99 Chloride 104.4 Carbon Dioxide 26.0 Anion Gap 16.79 BUN 31.9 H Creatinine 0.97 Estimated GFR (MDRD) 55.00 BUN/Creatinine Ratio 32.88 Glucose 155.3 H Lactic Acid 3.92 H D Calcium 10.06 Total Bilirubin 0.46 AST 20.7 ALT 15.6 Alkaline Phosphatase 38.7 L Troponin I 0.549 H* Total Protein 6.52 Albumin 4.01 Globulin 2.51 Albumin/Globulin Ratio 1.59 Additional Comments Additional Comments: I have independently reviewed and interpreted the labs/EKGs/imaging ordered during this hospital stay. I have reviewed outside records that are available in our EMR that pertain to medical stay including imaging/notes/labs from previous visits. Active Medications Active Medications: Medications Generic Name Dose Route Start Last Admin Trade Name Freq PRN Reason Stop Dose Admin Acetaminophen 650 mg 11/26/24 08:35 Acetaminophen 325 Mg Tablet PO Q4H PRN Mild Pain Albuterol Sulfate 2 puff 11/26/24 13:13 Albuterol Sulfate 8 Gm Inhaler IH Q4-6H PRN Wheezing Albuterol/Ipratropium 3 ml 11/26/24 12:00 11/27/24 04:54 Ipratropium/Albuterol Vial.Neb NEB 3 ml RTQ6H SANDI Administration Allopurinol 200 mg 11/26/24 13:30 11/27/24 09:09 Allopurinol 100 Mg Tablet PO 200 mg DAILY SANDI Administration Azelastine HCl 1 spray 11/26/24 21:00 11/27/24 09:11 Azelastine Hcl 30 Ml Nasal [place] ERNESTO 1 spray BID SANDI Administration Azithromycin 500 mg 11/26/24 09:00 11/27/24 09:09 Azithromycin 250 Mg Tablet PO 11/29/24 08:59 500 mg DAILY SANDI Administration Buspirone HCl 5 mg 11/27/24 10:30 11/27/24 09:09 Buspirone Hcl 10 Mg Tablet PO 5 mg 2XD SANDI Administration Cholecalciferol 1,000 unit 11/27/24 09:00 11/27/24 09:10 Cholecalciferol (Vitamin D3) 1,000 Unit (25 Mcg) Tablet PO 1,000 unit DAILY SANDI Administration Citalopram Hydrobromide 20 mg 11/27/24 10:30 11/27/24 09:09 Citalopram Hydrobromide 20 Mg Tablet PO 20 mg DAILY SANDI Administration Clopidogrel Bisulfate 75 mg 11/26/24 13:15 11/27/24 09:10 Clopidogrel Bisulfate 75 Mg Tablet PO 75 mg DAILY SANDI Administration Fenofibrate 54 mg 11/27/24 09:00 11/27/24 09:08 Fenofibrate 54 Mg Tablet PO 54 mg DAILY SANDI Administration Ferrous Sulfate 324 mg 11/27/24 06:00 11/27/24 05:41 Ferrous Sulfate 324 Mg Tablet.Dr PO 324 mg QDAC2 SANDI Administration Fluticasone Propionate 1 spray 11/26/24 21:00 11/27/24 09:11 Fluticasone Propionate 16 Gm Nasal [place] ERNESTO 1 spray BID SANDI Administration Furosemide 20 mg 11/26/24 14:00 11/27/24 05:13 Furosemide Inj 20 Mg/2 Ml Vial IVP 20 mg Q8HR SANDI Administration CEFTRIAXONE/D5W 1 GM PREMIX 1 gm in 50 mls @ 100 mls/hr 11/27/24 09:00 11/27/24 09:08 Rocephin 1 Gm/50 Ml D5w IV 11/30/24 08:59 100 mls/hr DAILY SANDI Administration Insulin Human Regular 0 unit 11/26/24 13:16 11/26/24 14:31 Insulin Regular, Human 100 Unit/Ml (10ml) Vial SUBCUT 2 unit PRN PRN Administration Hyperglycemia Protocol Lisinopril 10 mg 11/26/24 13:15 11/27/24 09:10 Lisinopril 10 Mg Tablet PO 10 mg DAILY SANDI Administration Methylprednisolone Sodium Succinate 40 mg 11/26/24 13:00 11/27/24 05:13 Methylprednisolone Sod Succ/Pf 40 Mg/Ml Vial IVP 40 mg Q8HR SANDI Administration Metoprolol Tartrate 12.5 mg 11/27/24 09:00 11/27/24 09:11 Metoprolol Tartrate 25 Mg Tablet PO 12.5 mg DAILY SANDI Administration Oxybutynin Chloride 10 mg 11/26/24 13:30 11/27/24 09:10 Oxybutynin Chloride 5 Mg Tab.Er.24 PO 10 mg DAILY SANDI Administration Pantoprazole Sodium 40 mg 11/27/24 06:00 11/27/24 05:41 Pantoprazole Sodium 40 Mg Tablet.Dr PO 40 mg QDAC2 SANDI Administration Potassium Chloride 20 meq 11/27/24 07:30 11/27/24 09:10 Potassium Chloride 20 Meq Tab PO 20 meq DAILYWM2 SANDI Administration Pravastatin Sodium 80 mg 11/26/24 13:15 11/27/24 09:09 Pravastatin Sodium 40 Mg Tablet PO 80 mg DAILY SANDI Administration Prednisolone Acetate 1 drop 11/26/24 21:00 11/27/24 09:08 Prednisolone Acetate 10 Ml Op Susp EACHEYE 1 drop BID SANDI Administration Sodium Chloride 1 syr 11/26/24 21:00 11/27/24 05:13 0.9% Sodium Chloride 10 Ml Disp.Syrin IVF 1 syr Q8HR SANDI Administration Sodium Chloride 1 syr 11/27/24 10:36 0.9% Sodium Chloride 10 Ml Disp.Syrin IVF PRN PRN Maintain IV Patency Plan Plan: 1. Acute Hypoxic Respiratory Failure in the setting of CHF exacerbation and CAP - Unchanged, wean oxygen to home requirements as tolerated, nebs, steroids 2. CAP - rocephin and azith, steroids, nebs, legionella, strep pneumo, and sputum pending 3. Acute on Chronic Diastolic Heart Failure - last EF on 09/16/23 43%, stress echo normal at that time as well, continue lasix 20 mg IV Q8H, I&O, daily weight, repeat echo today 4. NSTEMI - troponins flat, no active chest pain or changes on EKG, likely type 2 due to above 5. HTN - chronic, continue home medications 6. COPD - does not appear in exacerbation at this time, typically only wears oxygen prn and 2L at bedtime 7. Tremor - new in last 8 months, will taper off of celexa and buspar per patient request to stop medications due to no relief of anxiety/depression, if tremor does not resolve with cease of medications recommend referral to neurology by PCP. 8. Lactic acidosis - continues to be high, unable to give fluids due to HF, likely reactive due to above DVT Prophylaxis: Plavix Review Statement Review Statement: I have personally discussed and reviewed the patient's visit/currently l abs/imaging/decision making with Dr. Iraheta, my supervising attending. Greater that 50 minutes spent with patient, 50% of the time spent with this patient was devoted to counseling and coordination of care.
[2024-11-27] MEDS: FERROUS FUMARATE PO SCH (11:33)
--- NOTE | 2024-11-27 13:31 | ECHO2D ---
Date of Exam: 11/27/2024 Ordering Physician: DR. AUSTIN TELLES / RAINE KEYES NP Room #: 116 Reason for Echo: SHORTNESS OF BREATH, CONGESTIVE HEART FAILURE WITH LEFT VENTRICULAR DIASTOLIC DYSFUNCTION, HYPERTENSION, DYSLIPIDEMIA, CHRONIC OBSTRUCTIVE PULMONARY DISEASE, STAGE 2 CHRONIC KINDEY DISEASE, TYPE 2 DIABETES, HISTORY OF MYOCARDIAL INFARCTION, CORONARY ARTERY BYPASS GRAFT x4 M-Mode Normal Adult Results LV Dimensions Normal Adult Results AoV Opening excursions >1.6 >1.6 LVEDD-base- 3.5-5.8 6.7 Ao root dimensions 2.0-3.7 3.1 LVESD-base- 3.1-4.6 L. Atrium dimensions 1.9-3.8 5.7 Post. Wall thickness 0.8-1.1 1.3 IV septum (thickness) 0.7-1.2 1.3 Post. Wall excursion 0.72-1.3 0.2 Septal motion 0.8 Systolic motion R. Ventricular cavity 1.5-2.0 NORMAL LVEF 60% 46% Paradoxical septal wall motion NORMAL 2-D : 2-D M Mode Echocardiogram was performed using apical four chamber and left parasternal long and short axis views. ENLARGED LEFT ATRIAL / LEFT VENTRICULAR CAVITIES. HYPOKINETIC INFERIOR POSTERIOR WALL. VALVES ARE NORMAL. NO EFFUSION. NO THROMBUS. NORMAL RIGHT VENTRICULAR / RIGHT ATRIAL CAVITIES. M-MODE: MV: CALCIFIC MITRAL VALVE ANNULUS AV: NORMAL TV: NORMAL PV: NORMAL CHAMBER SIZE: ENLARGED LEFT ATRIAL / LEFT VENTRICULAR CAVITIES. WALL MOTION: HYPOKINETIC INFERIOR POSTERIOR WALL. PERICARDIUM: NORMAL INTERPRETATION: 1. LEFT VENTRICULAR HYPERTROPHY WITH ENLARGED LEFT ATRIAL CAVITY (5.7 CM) 2. HYPOKINETIC INFERIOR POSTERIOR WALL -- EJECTION FRACTION 46% 3. LEFT VENTRICULAR CAVITY ENLARGED 4. CALCIFIC MITRAL VALVE ANNULUS 5. TRICUSPID VALVE, PULMONARY VALVE, AND AORTIC VALVE ARE NORMAL. MTDD
[2024-11-28 05:50] LABS: BASOPHILS % (AUTO) 0.1 % (0.0-3.0); HEMATOCRIT 43.7 % (37.0-47.0); HEMOGLOBIN 13.7 g/dl (12.0-16.0); IMMATURE GRANULOCYTE # (AUTO) 0.1 (0.0-1.0); IMMATURE GRANULOCYTE % (AUTO) 0.5 % (0.0-5.0); LYMPHOCYTES # (AUTO) 0.7 K/uL (0.60-3.4); LYMPHOCYTES % (AUTO) 6.5 (10.0-50.0); MEAN CORPUSCULAR HEMOGLOBIN 29.9 pg (27.0-31.0); MEAN CORPUSCULAR HGB CONC 31.4 (31.8-35.4); MEAN CORPUSCULAR VOLUME 95.4 fl (81.0-99.0); MONOCYTES # (AUTO) 0.4 K/uL (0.4-2.0); MONOCYTES % (AUTO) 3.2 (0-10); NEUTROPHILS # (AUTO) 9.7 K/ul (2.0-6.9); NEUTROPHILS % (AUTO) 89.7 % (42.2-75.2); PLATELET COUNT 207 10^3/uL (140-440); RDW COEFFICIENT OF VARIATION 14.3 % (11.6-14.8); RED BLOOD COUNT 4.58 10^6/ul (4.20-5.40); WHITE BLOOD COUNT 10.77 K/ul (4.6-10.2)
[2024-11-28 06:03] LABS: ALANINE AMINOTRANSFERASE 15.7 U/L (0-35); ALBUMIN 3.88 g/dL (3.5-5.0); ALKALINE PHOSPHATASE 30.6 U/L (53-141); ASPARTATE AMINO TRANSFERASE 23.3 U/L (14-36); BILIRUBIN,TOTAL 0.5 mg/dL (0.2-1.3); BLOOD UREA NITROGEN 46.3 mg/dL (7-17); CALCIUM 9.81 mg/dL (8.4-10.2); CARBON DIOXIDE 22.4 mmol/L (22-30.0); CHLORIDE 105.7 mmol/L (98-107); CREATININE 1.04 mg/dL (0.60-1.30); GLUCOSE 138.4 mg/dL (74-106); SODIUM 142.2 mmol/L (134.5-145); TOTAL PROTEIN 6.4 g/dL (6.3-8.2)
--- NOTE | 2024-11-28 10:57 | PCM.PROG ---
Date/Time Seen Date Seen by Provider: 11/28/24 Time Seen by Provider: 09:15 Provider Provider: WENDIE PALACIOS, [facility] Chief Complaint Chief Complaint: CHRONIC HYPOXIC RESPIRATORY FAILURE, CAD Subjective Subjective: States her cough is starting to become productive. Tremor is some better today. Feels breathing is much improved compared to when she first came in. Objective Appearance: Positive No Apparent Distress and Alert and Oriented x3 Chest/Lungs: Positive Symmetrical With Equal Breath Sounds and Clear to Auscultation Bilaterally (diminished) Heart: Positive Pulses Normal and Murmur GI/: Positive Soft, Nontender, Bowel Sounds Normal and No Distention Musculoskeletal: Positive Not Examined Neurological: Positive Sensation Intact, Motor intact, Reflexes Intact, Alert, Oriented and Other (tremor present constant) Vital Signs Vital Signs: Vital Signs: Last 24 Hours 11/27/24 13:00 11/27/24 14:00 11/27/24 14:00 Temperature 98 F Temperature Source Oral Pulse Rate 72 Respiratory Rate 20 Blood Pressure 123/61 Blood Pressure Mean 81 Blood Pressure Location Right Arm Blood Pressure Position Supine O2 Sat by Pulse Oximetry 94 L 94 L Oxygen Delivery Method Nasal Cannula Nasal Cannula Oxygen Flow Rate 2 2 Telemetry Type Remote Telemetry Telemetry Monitoring Continues Telemetry Heart Rate 68 Telemetry SPO2 94 EKG VT Interval 0.15 EKG QRS Interval 0.08 Telemetry Strip Reading SR with PVC's and PAC's 11/27/24 18:00 11/27/24 19:00 11/27/24 20:00 Temperature 97.1 F L Temperature Source Temporal Artery Scan Pulse Rate 72 Respiratory Rate 18 Blood Pressure 126/55 L Blood Pressure Mean 78 Blood Pressure Location Right Arm Blood Pressure Position Supine O2 Sat by Pulse Oximetry 93 L 95 Oxygen Delivery Method Nasal Cannula Nasal Cannula Oxygen Flow Rate 2 2 Telemetry Type Remote Telemetry Telemetry Monitoring Continues Telemetry Heart Rate 63 Telemetry SPO2 92 L EKG VT Interval 0.16 EKG QRS Interval 0.09 Telemetry Strip Reading SR W/ PVCS & PACS 11/27/24 20:00 11/27/24 21:37 11/28/24 01:00 Temperature 97.2 F L Temperature Source Tympanic Pulse Rate 69 Respiratory Rate 19 Blood Pressure 108/67 Blood Pressure Mean 80 Blood Pressure Location Right Arm Blood Pressure Position Supine O2 Sat by Pulse Oximetry 93 L Oxygen Delivery Method Nasal Cannula Nasal Cannula Oxygen Flow Rate 2.5 2 Telemetry Type Remote Telemetry Telemetry Monitoring Continues Telemetry Heart Rate 51 L Telemetry SPO2 92 L EKG VT Interval 0.16 EKG QRS Interval 0.08 Telemetry Strip Reading SB W/ PVCS & PACS 11/28/24 02:00 11/28/24 05:06 11/28/24 05:56 Temperature 97.4 F L 98.6 F Temperature Source Temporal Artery Scan Temporal Artery Scan Pulse Rate 67 62 Respiratory Rate 19 20 Blood Pressure 119/69 Blood Pressure Mean 85 Blood Pressure Location Right Arm Right Arm Blood Pressure Position Supine Supine O2 Sat by Pulse Oximetry 94 L 92 L 93 L Oxygen Delivery Method Nasal Cannula Nasal Cannula Nasal Cannula Oxygen Flow Rate 2 2 2 Telemetry Type Telemetry Monitoring Telemetry Heart Rate Telemetry SPO2 EKG VT Interval EKG QRS Interval Telemetry Strip Reading 11/28/24 06:24 11/28/24 07:00 11/28/24 10:00 Temperature Temperature Source Pulse Rate Respiratory Rate Blood Pressure 132/72 Blood Pressure Mean 92 Blood Pressure Location Right Arm Blood Pressure Position Supine O2 Sat by Pulse Oximetry 94 L Oxygen Delivery Method Room Air Nasal Cannula Oxygen Flow Rate 2 Telemetry Type Remote Telemetry Telemetry Monitoring Continues Telemetry Heart Rate 60 Telemetry SPO2 92 L EKG VT Interval 0.20 EKG QRS Interval 0.08 Telemetry Strip Reading sr w/ PACs Lab Results Lab Results: Lab Results: Last 24 Hours 11/28/24 04:13 WBC 10.77 H RBC 4.58 Hgb 13.7 Hct 43.7 MCV 95.4 MCH 29.9 MCHC 31.4 L RDW Coeff of Cathy 14.3 Plt Count 207 Immature Gran % (Auto) 0.5 Neut % (Auto) 89.7 H Lymph % (Auto) 6.5 L [place] % (Auto) 3.2 Eos % (Auto) 0.0 Baso % (Auto) 0.1 Neut # (Auto) 9.7 H Lymph # (Auto) 0.7 [place] # (Auto) 0.4 Eos # (Auto) 0.0 Baso # (Auto) 0.0 Immature Gran # (Auto) 0.1 Sodium 142.2 Potassium 4.00 Chloride 105.7 Carbon Dioxide 22.4 Anion Gap 18.10 BUN 46.3 H Creatinine 1.04 Estimated GFR (MDRD) 51.00 BUN/Creatinine Ratio 44.51 Glucose 138.4 H Calcium 9.81 Total Bilirubin 0.50 AST 23.3 ALT 15.7 Alkaline Phosphatase 30.6 L Total Protein 6.40 Albumin 3.88 Globulin 2.52 Albumin/Globulin Ratio 1.53 Additional Comments Additional Comments: I have independently reviewed and interpreted the labs/EKGs/imaging ordered during this hospital stay. I have reviewed outside records that are available in our EMR that pertain to medical stay including imaging/notes/labs from previous visits. Active Medications Active Medications: Medications Generic Name Dose Route Start Last Admin Trade Name Freq PRN Reason Stop Dose Admin Acetaminophen 650 mg 11/26/24 08:35 Acetaminophen 325 Mg Tablet PO Q4H PRN Mild Pain Albuterol Sulfate 2 puff 11/26/24 13:13 Albuterol Sulfate 8 Gm Inhaler IH Q4-6H PRN Wheezing Albuterol/Ipratropium 3 ml 11/26/24 12:00 11/28/24 05:58 Ipratropium/Albuterol Vial.Neb NEB 3 ml RTQ6H SANDI Administration Allopurinol 200 mg 11/26/24 13:30 11/28/24 09:15 Allopurinol 100 Mg Tablet PO 200 mg DAILY SANDI Administration Azelastine HCl 1 spray 11/26/24 21:00 11/28/24 09:13 Azelastine Hcl 30 Ml Nasal [place] ERNESTO 1 spray BID SANDI Administration Azithromycin 500 mg 11/26/24 09:00 11/28/24 09:14 Azithromycin 250 Mg Tablet PO 11/29/24 08:59 500 mg DAILY SANDI Administration Buspirone HCl 5 mg 11/27/24 10:30 11/28/24 09:14 Buspirone Hcl 10 Mg Tablet PO 5 mg 2XD SANDI Administration Cholecalciferol 1,000 unit 11/27/24 09:00 11/28/24 09:16 Cholecalciferol (Vitamin D3) 1,000 Unit (25 Mcg) Tablet PO 1,000 unit DAILY SANDI Administration Citalopram Hydrobromide 20 mg 11/27/24 10:30 11/28/24 09:15 Citalopram Hydrobromide 20 Mg Tablet PO 20 mg DAILY SANDI Administration Clopidogrel Bisulfate 75 mg 11/26/24 13:15 11/28/24 09:16 Clopidogrel Bisulfate 75 Mg Tablet PO 75 mg DAILY SANDI Administration Fenofibrate 54 mg 11/27/24 09:00 11/28/24 09:15 Fenofibrate 54 Mg Tablet PO 54 mg DAILY SANDI Administration Ferrous Sulfate 324 mg 11/27/24 06:00 11/28/24 05:03 Ferrous Sulfate 324 Mg Tablet. PO 324 mg QDAC2 SANDI Administration Fluticasone Propionate 1 spray 11/26/24 21:00 11/28/24 09:11 Fluticasone Propionate 16 Gm Nasal [place] ERNESTO 1 spray BID SANDI Administration Furosemide 20 mg 11/28/24 18:00 Furosemide Inj 20 Mg/2 Ml Vial IVP Q12H SANDI CEFTRIAXONE/D5W 1 GM PREMIX 1 gm in 50 mls @ 100 mls/hr 11/27/24 09:00 11/28/24 09:13 Rocephin 1 Gm/50 Ml D5w IV 11/30/24 08:59 100 mls/hr DAILY SANDI Administration Insulin Human Regular 0 unit 11/26/24 13:16 11/26/24 14:31 Insulin Regular, Human 100 Unit/Ml (10ml) Vial SUBCUT 2 unit PRN PRN Administration Hyperglycemia Protocol Lisinopril 10 mg 11/26/24 13:15 11/28/24 09:15 Lisinopril 10 Mg Tablet PO 10 mg DAILY SANDI Administration Methylprednisolone Sodium Succinate 40 mg 11/26/24 13:00 11/28/24 05:02 Methylprednisolone Sod Succ/Pf 40 Mg/Ml Vial IVP 40 mg Q8HR SANDI Administration Metoprolol Tartrate 12.5 mg 11/27/24 09:00 11/28/24 09:16 Metoprolol Tartrate 25 Mg Tablet PO 12.5 mg DAILY SANDI Administration Oxybutynin Chloride 10 mg 11/26/24 13:30 11/28/24 09:16 Oxybutynin Chloride 5 Mg Tab.Er.24 PO 10 mg DAILY SANDI Administration Pantoprazole Sodium 40 mg 11/27/24 06:00 11/28/24 05:03 Pantoprazole Sodium 40 Mg Tablet. PO 40 mg QDAC2 SANDI Administration Potassium Chloride 20 meq 11/27/24 07:30 11/28/24 09:16 Potassium Chloride 20 Meq Tab PO 20 meq DAILYWM2 SANDI Administration Pravastatin Sodium 80 mg 11/26/24 13:15 11/28/24 09:13 Pravastatin Sodium 40 Mg Tablet PO 80 mg DAILY SANDI Administration Prednisolone Acetate 1 drop 11/26/24 21:00 11/28/24 09:12 Prednisolone Acetate 10 Ml Op Susp EACHEYE 1 drop BID SANDI Administration Sodium Chloride 1 syr 11/26/24 21:00 11/28/24 05:03 0.9% Sodium Chloride 10 Ml Disp.Syrin IVF 1 syr Q8HR SANDI Administration Sodium Chloride 1 syr 11/27/24 10:36 0.9% Sodium Chloride 10 Ml Disp.Syrin IVF PRN PRN Maintain IV Patency Plan Plan: 1. Acute Hypoxic Respiratory Failure in the setting of CHF exacerbation and CAP - Unchanged, wean oxygen to home requirements as tolerated, nebs, steroids 2. CAP - rocephin and azith, steroids, nebs, legionella and strep pneumo pending, sputum negative. 3. Acute on Chronic Diastolic Heart Failure - Improving, diuresed 4L thus far, last EF on 09/16/23 43%, stress echo normal at that time as well, decrease lasix 20 mg IV Q12H, I&O, daily weight, echo showing EF 46% - unchanged otherwise 4. NSTEMI - troponins flat, no active chest pain or changes on EKG, likely type 2 due to above 5. HTN - chronic, continue home medications 6. COPD - does not appear in exacerbation at this time, typically only wears oxygen prn and 2L at bedtime 7. Tremor - new in last 8 months, will taper off of celexa and buspar per patient request to stop medications due to no relief of anxiety/depression, if tremor does not resolve with cease of medications recommend referral to neurology by PCP. 8. Lactic acidosis - continues to be high, unable to give fluids due to HF, likely reactive due to above DVT Prophylaxis: Plavix Review Statement Review Statement: I have personally discussed and reviewed the patient's visit/currently labs/imaging/decision making with Dr. Iraheta, my supervising attending. Greater that 50 minutes spent with patient, 50% of the time spent with this patient was devoted to counseling and coordination of care.
[2024-11-28] MEDS: LASIX IVP SCH (17:17)
[2024-11-28 18:10] LABS: SPECIMEN SOURCE Urine (.); STEP PNEUMO ORGANISM ID Not indicated. (.); STREP PNEUMO AG Negative (Negative); STREP PNEUMO BODY FLUID CULT Not indicated. (.)
[2024-11-29 05:43] LABS: BASOPHILS % (AUTO) 0.1 % (0.0-3.0); EOSINOPHILS % (AUTO) 0.3 % (0.0-7.0); HEMATOCRIT 45.5 % (37.0-47.0); HEMOGLOBIN 14.3 g/dl (12.0-16.0); IMMATURE GRANULOCYTE # (AUTO) 0.1 (0.0-1.0); IMMATURE GRANULOCYTE % (AUTO) 0.7 % (0.0-5.0); LYMPHOCYTES # (AUTO) 0.8 K/uL (0.60-3.4); LYMPHOCYTES % (AUTO) 8.9 (10.0-50.0); MEAN CORPUSCULAR HGB CONC 31.4 (31.8-35.4); MEAN CORPUSCULAR VOLUME 95.4 fl (81.0-99.0); MONOCYTES # (AUTO) 0.4 K/uL (0.4-2.0); MONOCYTES % (AUTO) 4.2 (0-10); NEUTROPHILS # (AUTO) 7.6 K/ul (2.0-6.9); NEUTROPHILS % (AUTO) 85.8 % (42.2-75.2); PLATELET COUNT 207 10^3/uL (140-440); RDW COEFFICIENT OF VARIATION 14.4 % (11.6-14.8); RED BLOOD COUNT 4.77 10^6/ul (4.20-5.40); WHITE BLOOD COUNT 8.85 K/ul (4.6-10.2)
[2024-11-29 06:01] LABS: ALANINE AMINOTRANSFERASE 29.4 U/L (0-35); ALBUMIN 3.61 g/dL (3.5-5.0); ALKALINE PHOSPHATASE 34.4 U/L (53-141); ASPARTATE AMINO TRANSFERASE 36.3 U/L (14-36); BILIRUBIN,TOTAL 0.41 mg/dL (0.2-1.3); BLOOD UREA NITROGEN 54.9 mg/dL (7-17); CALCIUM 10.13 mg/dL (8.4-10.2); CARBON DIOXIDE 26.1 mmol/L (22-30.0); CHLORIDE 103.9 mmol/L (98-107); CREATININE 1.12 mg/dL (0.60-1.30); GLUCOSE 136.6 mg/dL (74-106); POTASSIUM 4.25 mmol/L (3.5-5.1); SODIUM 141.5 mmol/L (134.5-145); TOTAL PROTEIN 6.02 g/dL (6.3-8.2)
[2024-11-29 06:03] VITALS: BP 149/97; PULSE 59; RESP 18; TEMP 97.5
--- NOTE | 2024-11-29 09:40 | DCSUM ---
Admission Date Admission Date: 11/26/24 Discharge Date Discharge Date: 11/29/24 Admission Diagnosis Admission Diagnosis: 1. Acute Hypoxic Respiratory Failure in the setting of CHF exacerbation and CAP 2. CAP 3. Acute on Chronic Diastolic Heart Failure 4. NSTEMI 5. HTN 6. COPD Discharge Diagnosis Discharge Diagnosis: 1. Acute Hypoxic Respiratory Failure in the setting of CHF exacerbation and CAP - Continues to require oxygen continuously, has concentrator already 2. CAP - Improving, sputum, legionella, and strep pneumo negative 3. Acute on Chronic Diastolic Heart Failure - Improving, diuresed well, echo showing EF 46% 4. NSTEMI - troponins flat, no active chest pain or changes on EKG, likely type 2 due to above 5. HTN - chronic, continue home medications 6. COPD - chronic, stable 7. Tremor - new in last 8 months, started taper off of celexa and buspar per patient request to stop medications due to no relief of anxiety/depression, if tremor does not resolve with cease of medications recommend referral to neurology by PCP. 8. Lactic acidosis - continued to be high, unable to give fluids due to HF, likely reactive due to above Hospital Provider Hospital Provider: WEND[facility] PALACIOS, [facility] Physician Primary Care Physician: AUSTIN TELLES MD Summary of History and Physical Summary of History and Physical: 84-year-old female with past medical history of diastolic heart failure, COPD with home oxygen requirement of 2 L at bedtime and as needed, hypertension, diabetes type 2, and GERD presented to the ER with shortness of breath. Patient states that over the last 2 days shortness of breath has continued to worsen. States last night she put her oxygen on and lay down to go to sleep and was unable to lay flat. Once laying down breathing continue to worsen. States she does have nebulizer treatments at home but has not been using them says they are more of a pain to do that and they are helpful. Denies any chest pain palpitations nausea vomiting. When asked about fever states she did not check it but has been sweaty at times. Does report nonproductive cough. Has been wearing her oxygen continuously. In ER, BNP found to be elevated as well as troponin trending up. Likely NSTEMI type 2. No active chest pain or ST segment changes on EKG. Respirations were 30 on arrival to ER. Given neb, steroids, lasix, and rocephin. Admitted to med/surg inpatient. Hospital Course Subjective: During stay, patient has continued to require 2L NC. Prior to admission, she was wearing oxygen at home 2L prn and 2.5L at bedtime. However, reports shortness of breath is much better. 3 step pulse oximetry completed for qualification of home O2. O2 tank to be brought in prior to d/c. She has received nebs and steroids. Treated CAP with rocephin and course of azith. Legionella, strep pneumo, and sputum culture collected and all negative. Received lasix 20 mg Q8H IVP initially for diuresis d/t diastolic HF exacerbation. Diuresed well and transitioned to oral. Echo completed and showed EF 46% with no new findings. Troponin in ER was trending up on admission. Continued to trend and began dropping. Patient did not have any complaints of chest pain or changes on EKG. Determined to likely be a type 2 due to CHF exacerbation and pneumonia. Heart rate has remained in 50s and even dropped to 40s at times. Patient denies any symptoms. Stopped metoprolol due to this at this time. Patient is on lowest tolerable dose. Lactic acid was high in ER and continued to remain high. Unable to give fluids due to HF exacerbation. Likely reactive due to acute processes. Of note, patient reported a new tremor over the last 8 months since starting celexa. Has had dosage increases and also been started on buspar. Discussed that she would like to stop the medications due to no relief of anxiety/depression and concerned that this is worsening tremor. Started taper and tremor has since improved. Discussed if tremor does not resolved with cease of medications referral to neurology may be warranted to r/o other etiology. Dc with rest of course of augmentin and steroids. Completed course of azith. Rx sent for taper of buspar and celexa. Patient also requested duonebs rx because of hers being . Appearance: Pleasant, No Apparent Distress and Alert HEENT: MMM, Supple and No JVD CVS: No Murmur Abdomen: Soft, Non-Tender and No Distention Respiratory: No Dyspnea Extremities: No Edema Vital Signs: Most Recent Vital Signs Temperature 97.5 F L 11/29/24 06:00 Temperature Source Temporal Artery Scan 11/29/24 06:00 Temperature Source Infrared 11/26/24 02:26 Pulse Rate 59 L 11/29/24 06:00 Respiratory Rate 18 11/29/24 06:00 Blood Pressure 149/97 H 11/29/24 06:00 Blood Pressure Mean 114 11/29/24 06:00 Blood Pressure Right Arm 129/60 11/26/24 10:19 Blood Pressure Location Left Arm 11/29/24 06:00 Blood Pressure Position Supine 11/29/24 06:00 O2 Sat by Pulse Oximetry 96 11/29/24 06:00 Oxygen Delivery Method Nasal Cannula 11/29/24 06:00 Oxygen Flow Rate 2 11/29/24 06:00 Height 5 ft 4 in 11/26/24 10:19 Weight 89.9 kg 11/26/24 10:19 Telemetry Type Remote Telemetry 11/29/24 01:00 Telemetry Monitoring Continues 11/29/24 01:00 Irregular Telemetry Rate (Approximate) 70-80 BPM 11/26/24 13:00 Telemetry Heart Rate 53 L 11/29/24 01:00 Telemetry SPO2 92 L 11/29/24 01:00 EKG ME Interval 0.18 11/29/24 01:00 EKG QRS Interval 0.10 11/29/24 01:00 Telemetry Strip Reading SR w/ PVCs 11/29/24 01:00 Imaging: EXAM: TWO-VIEW CHEST FINDINGS: Stable cardiomegaly.. The aortic arch is atherosclerotic. There has been prior mediastinotomy. The lungs are hyperinflated.. There is calcified granuloma the right lung base interstitial prominence is noted peripherally at the right lung base. There is no pleural effusion. IMPRESSION: Stable cardiomegaly. Prior mediastinotomy. Bilateral hyperinflation. Right basilar interstitial infiltrate Date of Exam: 11/27/2024Ordering Physician: DR. AUSTIN TELLES / RAINE KEYES NP Room #: 116 Reason for Echo: SHORTNESS OF BREATH, CONGESTIVE HEART FAILURE WITH LEFT VENTRICULAR DIASTOLIC DYSFUNCTION, HYPERTENSION, DYSLIPIDEMIA, CHRONIC OBSTRUCTIVE PULMONARY DISEASE, STAGE 2 CHRONIC KINDEY DISEASE, TYPE 2 DIABETES, HISTORY OF MYOCARDIAL INFARCTION, CORONARY ARTERY BYPASS GRAFT x4 M-Mode Normal Adult Results LV Dimensions Normal Adult Results AoV Opening excursions >1.6 >1.6 LVEDD-base- 3.5-5.8 6.7 Ao root dimensions 2.0-3.7 3.1 LVESD-base- 3.1-4.6 L. Atrium dimensions 1.9-3.8 5.7 Post. Wall thickness 0.8-1.1 1.3 IV septum (thickness) 0.7-1.2 1.3 Post. Wall excursion 0.72-1.3 0.2 Septal motion 0.8 Systolic motion R. Ventricular cavity 1.5-2.0 NORMAL LVEF 60% 46% Paradoxical septal wall motion NORMAL 2-D : 2-D M Mode Echocardiogram was performed using apical four chamber and left parasternal long and short axis views. ENLARGED LEFT ATRIAL / LEFT VENTRICULAR CAVITIES. HYPOKINETIC INFERIOR POSTERIOR WALL. VALVES ARE NORMAL. NO EFFUSION. NO THROMBUS. NORMAL RIGHT VENTRICULAR / RIGHT ATRIAL CAVITIES. M-MODE: MV: CALCIFIC MITRAL VALVE ANNULUS AV: NORMAL TV: NORMAL PV: NORMAL CHAMBER SIZE: ENLARGED LEFT ATRIAL / LEFT VENTRICULAR CAVITIES. WALL MOTION: HYPOKINETIC INFERIOR POSTERIOR WALL. PERICARDIUM: NORMAL INTERPRETATION: 1. LEFT VENTRICULAR HYPERTROPHY WITH ENLARGED LEFT ATRIAL CAVITY (5.7 CM) 2. HYPOKINETIC INFERIOR POSTERIOR WALL -- EJECTION FRACTION 46% 3. LEFT VENTRICULAR CAVITY ENLARGED 4. CALCIFIC MITRAL VALVE ANNULUS 5. TRICUSPID VALVE, PULMONARY VALVE, AND AORTIC VALVE ARE NORMAL. Lab Results Last 24 Hours: 11/29/24 11/26/24 05:11 14:30 WBC 8.85 RBC 4.77 Hgb 14.3 Hct 45.5 MCV 95.4 MCH 30.0 MCHC 31.4 L RDW Coeff of Cathy 14.4 Plt Count 207 Immature Gran % (Auto) 0.7 Neut % (Auto) 85.8 H Lymph % (Auto) 8.9 L Aurora % (Auto) 4.2 Eos % (Auto) 0.3 Baso % (Auto) 0.1 Neut # (Auto) 7.6 H Lymph # (Auto) 0.8 Aurora # (Auto) 0.4 Eos # (Auto) 0.0 Baso # (Auto) 0.0 Immature Gran # (Auto) 0.1 Sodium 141.5 Potassium 4.25 Chloride 103.9 Carbon Dioxide 26.1 Anion Gap 15.75 BUN 54.9 H Creatinine 1.12 Estimated GFR (MDRD) 47.00 BUN/Creatinine Ratio 49.01 Glucose 136.6 H Calcium 10.13 Total Bilirubin 0.41 AST 36.3 H ALT 29.4 Alkaline Phosphatase 34.4 L Total Protein 6.02 L Albumin 3.61 Globulin 2.41 Albumin/Globulin Ratio 1.49 CSF Strep pneumoniae Ag Not indicated. Urine Legionella Ag Negative Staphs Organism ID Not indicated. S. pneumoniae Ag Source Urine S. pneumoniae Ag Intrp Negative Ref Test Please Note Comment Discharge Instructions Discharge Planning: Discharge Planning > 40 minutes If patient is discharged with left ventricular systolic dysfunction: no Discharged with a beta christen? [] If no, why not? [] Discharged with an nurys/arb? [] If no, why not? 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 Telles this week as scheduled. Discharge Medications: Medications at Discharge (Home Meds & RX) cholecalciferol (vitamin D3) 25 mcg (1,000 unit) capsule (Vitamin D3) 1,000 mg PO DAILY 03/01/15 albuterol sulfate 90 mcg/actuation aerosol inhaler 2 puff inhalation Q4-6H PRN Bronchodilation #100 grams 08/11/22 ferrous fumarate 325 mg (106 mg iron) tablet 325 mg PO QDAY 08/17/22 polyethylene glycol 3350 17 gram/dose oral powder (Miralax) 17 g PO QDAY PRN constipation 08/17/22 oxybutynin chloride 10 mg tablet,extended release 24 hr 10 mg PO QDAY 12/12/23 metformin 500 mg tablet 500 mg PO DAILY #90 tabs 06/02/24 azelastine 205.5 mcg (0.15 %) nasal spray (Astepro Allergy) 1 spray intranasal BID #11 mL 08/13/24 fluticasone propionate 50 mcg/actuation nasal spray,suspension (Flonase Allergy Relief) 1 spray intranasal BID #16 grams 08/13/24 allopurinol 100 mg tablet 200 mg (2 x 100 mg) PO DAILY #60 film 08/27/24 clopidogrel 75 mg tablet 75 mg PO DAILY #30 ea 09/24/24 furosemide 20 mg tablet 20 mg PO DAILY #30 tabs 09/24/24 lisinopril 10 mg tablet 10 mg PO DAILY #30 tabs 09/24/24 pantoprazole 40 mg tablet,delayed release 40 mg PO DAILY #30 tabs 09/24/24 potassium chloride 20 mEq tablet,extended release(part/cryst) 20 meq PO DAILY #30 ea 09/24/24 pravastatin 80 mg tablet 80 mg PO DAILY #30 tabs 09/24/24 fenofibrate 54 mg tablet 54 mg PO DAILY #30 tabs 11/19/24 prednisolone acetate 1 % eye drops,suspension 2 drp ophthalmic (eye) BID 11/26/24 amoxicillin 875 mg-potassium clavulanate 125 mg tablet 1 tab PO BID #8 tabs 11/29/24 buspirone 5 mg tablet 5 mg PO BID #9 tabs 11/29/24 buspirone 5 mg tablet 5 mg PO DAILY #7 tabs 11/29/24 citalopram 10 mg tablet 10 mg PO DAILY #7 tabs 11/29/24 citalopram 20 mg tablet 20 mg PO DAILY #4 tabs 11/29/24 ipratropium 0.5 mg-albuterol 3 mg (2.5 mg base)/3 mL nebulization soln 3 ml inhalation QID PRN shortness of breath #180 mL 11/29/24 prednisone 20 mg tablet 20 mg PO DAILY #3 tabs 11/29/24 Discharge Plan Discharge Discharge Orders: Discharge Patient (ONCE); Ordered 11/29/24 Ordered By: RAINE KEYES Activity Restrictions/Additional Instructions: Diagnosis: CHF Exacerbation, Pneumonia Diet: Diabetic Activity as tolerated, continue to wear your home oxygen Medications: [facility] - 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 Telles this week as scheduled. Instructions: Heart Failure (GEN), Community Acquired Pneumonia (GEN) Patient Disposition: HOME SELF-CARE Prescriptions: New buspirone 5 mg tablet 5 mg PO DAILY Qty: 7 0RF Rx Instructions: Start on 12/04 prednisone 20 mg tablet 20 mg PO DAILY Qty: 3 0RF amoxicillin-pot clavulanate 875-125 mg tablet 1 tab PO BID Qty: 8 0RF citalopram 20 mg Tablet 20 mg PO DAILY Qty: 4 0RF citalopram 10 mg tablet 10 mg PO DAILY Qty: 7 0RF Rx Instructions: Start on 12/04 buspirone 5 mg tablet 5 mg PO BID Qty: 9 0RF Continued metformin 500 mg tablet 500 mg PO DAILY Qty: 90 2RF allopurinol 100 mg tablet 200 mg PO DAILY Qty: 60 5RF pravastatin 80 mg tablet 80 mg PO DAILY Qty: 30 2RF pantoprazole 40 mg tablet,delayed release (DR/EC) 40 mg PO DAILY Qty: 30 2RF potassium chloride 20 mEq tablet,ER particles/crystals 20 meq PO DAILY Qty: 30 2RF clopidogrel 75 mg tablet 75 mg PO DAILY Qty: 30 2RF furosemide 20 mg tablet 20 mg PO DAILY Qty: 30 2RF lisinopril 10 mg tablet 10 mg PO DAILY Qty: 30 2RF fenofibrate 54 mg tablet 54 mg PO DAILY Qty: 30 2RF cholecalciferol (vitamin D3) [Vitamin D3] 1,000 UNIT capsule 1,000 mg PO DAILY albuterol sulfate 90 mcg/actuation Hfa Aerosol Inhaler 2 puff INHALATION Q4-6H PRN (Reason: Bronchodilation) Qty: 100 0RF prednisolone acetate 1 % drops,suspension 2 drp ophthalmic (eye) BID Patient Comments: 1 drop to each eye BID ipratropium-albuterol 0.5 mg-3 mg(2.5 mg base)/3 mL solution for nebulization 3 ml inhalation QID PRN (Reason: shortness of breath) Qty: 180 0RF ferrous fumarate 325 mg (106 mg iron) tablet 325 mg PO QDAY polyethylene glycol 3350 [Miralax] 17 gram/dose powder 17 g PO QDAY PRN (Reason: constipation) oxybutynin chloride 10 mg tablet extended release 24hr 10 mg PO QDAY fluticasone propionate [Flonase Allergy Relief] 50 mcg/actuation spray,suspension 1 spray intranasal BID Qty: 16 0RF Rx Instructions: administer into each nostril azelastine [Astepro Allergy] 205.5 mcg (0.15 %) spray,non-aerosol 1 spray intranasal BID Qty: 11 0RF Rx Instructions: administer into each nostril Discontinued metoprolol tartrate 25 mg tablet 12.5 mg PO DAILY Qty: 30 2RF citalopram 40 mg tablet 40 mg PO DAILY Qty: 30 3RF buspirone 10 mg tablet 10 mg PO 2XD Qty: 60 2RF Did you review [place] APARTMENT RENTAL CLERK for ALL controlled substances?: No Discussed opioids are addictive and Narcan is available by prescription or from pharmacy.: No Condition: Stable Referrals: AUSTIN TELLES MD [Primary Care Provider] - 12/03/24 9:00 am Assessment: Pt A&O x4. IV removed from LAC. O2 in place. Pt verbalizes an understanding that she will need to wear her oxygen throughout the day at this time instead of at night. She understands that some of her medications were called in to [facility] pharmacy. She states that her son will be coming to pick her up.
[2024-11-30] MEDS ORDERED: LASIX TAB PO SCH (06:00)
== END 2024-11-29 14:11 | disposition home or self-care (01) | DRG 280 ==
LOC: MEDSURG B 02:23 → ED 02:23 → MEDSURG B 10:00
PROVIDERS: ADMIT Hospitalist; ATTEND Nurse Practitioner Family

== ENCOUNTER 2025-04-11 11:51 | Inpatient (IN) ==
[2025-04-11] MEDS: DUONEB NEB ONE ×2 (12:16→19:36)
--- NOTE | 2025-04-11 12:19 | ED.PDOC ---
General HPI ED Provider: Dr. ALENA WICK MD Chief Complaint: Shortness of Air Stated Complaint: Patient presents to ER from home accompanied by her son complaining of worsening chronic shortness of breath. Reports onset was shortly after her son applied Aspercreme to mostly shoulders and back. States that is soon as he did so she broke out into a rash. Concerned about possible allergic reaction to this. Says that she was recently hospitalized at [facility] 03/08-03/22 for A-fib, CHF exacerbation. Said they attempted to cardiovert her x 2 but was unsuccessful since that time she has been taking Eliquis and all other medications as prescribed by cardiology. No other complaints at this time. Of note, patient initially reports baseline oxygen 3 to 3.5 L at home but later told respiratory therapy she has actually been using 3.5 to 4 L at home. Has been unable to tolerate CPAP/BiPAP in the past. Time Seen by Provider: 04/11/25 12:05 Mode of Arrival: Walk-In Information Source: Patient Exam Limitations: No limitations Primary Care Provider: LEYDI VERNON APRN Nursing and Triage Documentation Reviewed and Agree: Yes Opioid Naive vs. Tolerant What is Opioid Naive?: *Opioid Naive implies the patient is not already taking opioids or not chronically receiving opioids on a daily basis. *PRN dosing is not "usually" associated with tolerance. *Patients are at higher risk of over-sedation and aspiration. What is Opioid Tolerant?: *Opioid Tolerance implies less than the expected response to an opioid. *Acquired tolerance is defined by the patient taking 60mg of oral morphine daily (or equianalgesic dose of another opioid) for 1 week or more. *Often associated with chronic pain. *May take more than usual dose to achieve desired pain control. Review of Systems Review Of Systems Constitutional: Reports No symptoms All Other Systems: Reviewed and Negative (Except those listed in the HPI above.) [facility] Medical History Wrist fracture, right Dr Dawson S62.101A - Fracture of unspecified carpal bone, right wrist, initial encounter for closed fracture (ICD-10) Urine frequency R35.0 - Frequency of micturition (ICD-10) UTI (urinary tract infection) N39.0 - Urinary tract infection, site not specified (ICD-10) Rhabdomyolysis M62.82 - Rhabdomyolysis (ICD-10) History of SD (myocardial infarction) I25.2 - Old myocardial infarction (ICD-10) Family History Mother Dementia Mother AMI (acute myocardial infarction) Mother Hypertension SISTER Hypertension FATHER Bone cancer SISTER Cardiac disease CVA (cerebral vascular accident) MATERNAL GRANDMOTHER Cardiac disease Glaucoma Brain cancer Other No known health problems Social History Smoking and tobacco status: Former smoker Tobacco: How many years used: 30 Second hand smoke exposure: No Alcohol intake: never Substance use type: does not use Special jennifer needs: No Agree to transfusion: Yes Adopted: No Caregiver/support person: No Foster care: No Household members: none Housing: house Marital status: D Lives independently: Yes Daycare: no daycare Number of children: 2 Financial difficulty paying for basics: not very hard service: No skilled nursing: No Current occupational status: retired History of recent travel: No Do you think of yourself as: straight/heterosexual Current gender identity: female Seatbelt use: always Helmet use: No Drives intoxicated or rides with intoxicated hook up driver: No Water heater temperature set < 120 degrees: Yes Working smoke detector in home: Yes Fire extinguisher in home: Yes Carbon monoxide detector in home: Yes Firearms in home: No Surgical History Status post cataract surgery Z98.49 - Cataract extraction status, unspecified eye (ICD-10) 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 - Presence of aortocoronary bypass graft (ICD-10) Hx of CABG Z95.1 - Presence of aortocoronary bypass graft (ICD-10) History of cholecystectomy Z90.49 - Acquired absence of other specified parts of digestive tract (ICD- 10) History of hysterectomy Z90.710 - Acquired absence of both cervix and uterus (ICD-10) Female Reproductive History Menstrual Hx Hysterectomy: Yes Hx Tubal Ligation: No Physical Exam Physical Exam Appearance: Reports Well-appearing, No pain distress and Well-nourished Ill-appearing: None Pain Distress: None Eyes: Reports FRAN, EOMI and Conjunctiva clear ENT: Reports Ears normal, Nose normal and Oropharynx normal Neck: Supple Respiratory: Reports Airway patent, Breath sounds equal, Respirations nonlabored and Rhonchi Cardiovascular: Reports RRR, Pulses normal, No rub and No murmur GI/: Reports Soft and Nontender Musculoskeletal: Reports Normal strength and ROM intact Skin: Reports Warm, Dry, Normal color and Other (Diffuse, maculopapular rash located across upper torso and shoulders and back.) Neurological: Reports Sensation intact, Motor intact, Alert and Oriented Psychiatric: Reports Affect appropriate and Mood appropriate Interpretation EKG Interpretation EKG Interpretation By: ED Physician Time of EKG #1: 12:34 Rate: Tachy Rhythm: Other (a-fib) [place]: NL ST Segment: Normal Interpretation: A-fib RVR EKG Comparison: No significant changes Radiology Interpretation Radiology Interpretation By: ED Physician Radiology Results: Negative Exam Interpreted: CXR Xray Comments: Bibasilar pleural effusions. Course Course 04/11/25 12:15 04/11/25 12:15 Orders, Labs, Meds: Lab Review 04/11/25 04/11/25 04/11/25 12:15 12:20 12:51 WBC 6.57 RBC 4.28 Hgb 12.5 Hct 39.4 MCV 92.1 MCH 29.2 MCHC 31.7 L RDW Coeff of Cathy 15.9 H Plt Count 359 Immature Gran % (Auto) 1.2 Neut % (Auto) 76.4 H Lymph % (Auto) 11.1 [place] % (Auto) 5.2 Eos % (Auto) 5.8 Baso % (Auto) 0.3 Neut # (Auto) 5.0 Lymph # (Auto) 0.7 [place] # (Auto) 0.3 L Eos # (Auto) 0.4 Baso # (Auto) 0.0 Immature Gran # (Auto) 0.1 ESR 21 H PT 13.2 H INR 1.29 Puncture Site Rrad Base Excess 0 O2 Saturation 91.7 L ABG pH 7.40 ABG pCO2 40.0 ABG pO2 63.0 L ABG HCO3 24.8 ABG Total CO2 26.0 H Dung Test Pos Hemoglobin 0.8 Oxyhemoglobin 91.1 L Carboxyhemoglobin 1.6 H Total Hemoglobin 12.6 O2 Delivery Device Cannula Oxygen Liter Flow 6.00 Sodium 135.5 Potassium 3.28 L Chloride 101.5 Carbon Dioxide 23.8 Anion Gap 13.48 BUN 24.0 H Creatinine 1.18 Estimated GFR (MDRD) 44.00 BUN/Creatinine Ratio 20.33 Glucose 151.5 H Lactic Acid 3.10 H Calcium 9.27 Magnesium 0.58 L* Total Bilirubin 0.84 AST 26.4 ALT 16.7 Alkaline Phosphatase 49.3 L Troponin I 0.016 NT-Pro-B Natriuret Pep 4500 H Total Protein 6.29 L Albumin 3.59 Globulin 2.70 Albumin/Globulin Ratio 1.32 Procalcitonin 0.11 H D-Dimer 768.61 H Influ A Molecular Assay Negative by naat Influ B Molecular Assay Negative by naat RSV Antigen Negative by naat SARS CoV-2 RNA Rapid SARAH Negative Orders Category Date Time Status ADMIT PATIENT INPATIENT .TO [facility] (MONITORED BED) ADMISSION 04/11/25 15:58 Active ABG DRAW REQUEST Stat CARDIO 04/11/25 12:12 Completed EKG-(ED & IP/OBS ONLY) Stat CARDIO 04/11/25 12:11 Completed NEBULIZER TREATMENT Stat CARDIO 04/11/25 12:14 Completed TELEMETRY MONITORING TELE CARE 04/11/25 15:58 Active ED APPLY O2 .ONCE EMERGENCY 04/11/25 12:12 Active ED MOSS GATHERER APPLIED .ONCE EMERGENCY 04/11/25 12:12 Active ED IV/MEDIPORT/POWERPORT .ONCE EMERGENCY 04/11/25 12:12 Active ED VITAL SIGNS .ONCE EMERGENCY 04/11/25 12:12 Active ABG COOX Stat LAB 04/11/25 12:20 Completed BNP [NT-PROBNP] Stat LAB 04/11/25 12:15 Completed C-REACTIVE PROTEIN Stat LAB 04/11/25 12:15 Received CBC W/ AUTO DIFF Stat LAB 04/11/25 12:15 Completed COMPREHENSIVE METABOLIC PANEL Stat LAB 04/11/25 12:15 Completed D-DIMER Stat LAB 04/11/25 12:15 Completed ESR Stat LAB 04/11/25 12:15 Completed FLU A/B MOLECULAR Stat LAB 04/11/25 12:51 Completed LACTIC ACID Stat LAB 04/11/25 12:15 Completed MAGNESIUM Stat LAB 04/11/25 12:15 Completed PROCALCITONIN Stat LAB 04/11/25 12:15 Completed PT WITH INR Stat LAB 04/11/25 12:15 Completed RSV Stat LAB 04/11/25 12:51 Completed SARS COV-2 RNA RAPID SARAH Stat LAB 04/11/25 12:51 Completed TROPONIN I Stat LAB 04/11/25 12:15 Completed URINALYSIS C & S IF INDICATED Stat LAB 04/11/25 12:12 Uncollected 0.9 % Sodium Chloride [Saline Flush] Meds 04/11/25 12:11 Active 1 syr IVF PRN PRN Ipratropium/Albuterol Neb [Duoneb] Meds 04/11/25 12:15 Discontinued 3 ml NEB ONCE ONE Ipratropium/Albuterol Neb [Duoneb] Meds 04/11/25 12:11 Discontinued 3 ml NEB ONCE STA Magnesium Sulfate in Water [Magnesium Sulf 2 G/50 ml Meds 04/11/25 13:07 Discontinued Bag] 2 gm in 50 ml IV ONCE Methylprednisolone Sod Succ/Pf [Solu-Medrol 125 mg] Meds 04/11/25 12:11 Discontinued 125 mg IVP ONCE ONE Metoprolol Tartrate [Lopressor] Meds 04/11/25 13:43 Discontinued 5 mg IVP ONCE STA Potassium Chloride [Potassium Chloride 20 Meq/100 ml Meds 04/11/25 13:12 Discontinued Premix] 20 meq in 100 ml IV ONCE Sodium Chloride 0.9% [Sodium Chloride] 500 ml Meds 04/11/25 13:07 Discontinued IV ONCE CHEST, 1V AP ONLY Stat RADS 04/11/25 12:11 Completed Medications Generic Name Dose Route Start Last Admin Trade Name Freq PRN Reason Stop Dose Admin Acetaminophen 650 mg 04/11/25 18:11 Acetaminophen 325 Mg Tablet PO Q4H PRN Mild Pain Albuterol/Ipratropium 3 ml 04/12/25 00:00 Ipratropium/Albuterol Vial.Neb NEB RTQ6H SANDI Allopurinol 200 mg 04/12/25 09:00 Allopurinol 100 Mg Tablet PO DAILY SANDI Apixaban 5 mg 04/11/25 21:00 Apixaban 5 Mg Tab PO 2XD SANDI Bumetanide 1 mg 04/12/25 09:00 Bumetanide 1 Mg Tablet PO DAILY SANDI Diltiazem HCl 360 mg 04/11/25 09:00 Diltiazem Hcl 180 Mg Cap.Er.24h PO Q24H SANDI Diphenhydramine HCl 25 mg 04/11/25 18:10 Diphenhydramine Hcl 25 Mg Capsule PO Q6H PRN Allergy Symptoms Empagliflozin 10 mg 04/12/25 09:00 Empagliflozin 10 Mg Tablet PO DAILY [facility] Famotidine 20 mg 04/11/25 18:10 Famotidine Inj 20 Mg/2 Ml Vial IVP Q12HR SANDI Fenofibrate 54 mg 04/12/25 09:00 Fenofibrate 54 Mg Tablet PO DAILY SANDI Fluticasone Propionate 1 spray 04/11/25 21:00 Fluticasone Propionate 16 Gm Nasal [place] ERNESTO BID SANDI MAGNESIUM SULFATE IN WATER 2 gm in 50 mls @ 25 mls/hr 04/11/25 18:11 Magnesium Sulf 2 G/50 Ml Bag IV 04/11/25 20:10 ONCE ONE Methylprednisolone Sodium Succinate 40 mg 04/11/25 21:00 Methylprednisolone Sod Succ/Pf 40 Mg/Ml Vial IVP Q8HR SANDI Non-Formulary Medication 1 spray 04/11/25 21:00 Azelastine [Astepro Allergy] ERNESTO BID SANDI Non-Formulary Medication 17 gm 04/11/25 18:22 Polyethylene Glycol 3350 [Miralax] PO QDAY PRN Constipation Non-Formulary Medication 4 mg 04/12/25 09:00 Tolterodine PO DAILY [facility] Oxybutynin Chloride 10 mg 04/12/25 09:00 Oxybutynin Chloride 5 Mg Tab.Er.24 PO QDAY SANDI Pantoprazole Sodium 40 mg 04/12/25 09:00 Pantoprazole Sodium 40 Mg Tablet.Dr PO DAILY SANDI Pravastatin Sodium 80 mg 04/12/25 09:00 Pravastatin Sodium 40 Mg Tablet PO DAILY [facility] Prednisolone Acetate 2 drop 04/11/25 21:00 Prednisolone Acetate 10 Ml Op Susp EACHEYE BID SANDI Sodium Chloride 1 syr 04/11/25 12:11 0.9% Sodium Chloride 10 Ml Disp.Syrin IVF PRN PRN To flush IV Spironolactone 25 mg 04/11/25 21:00 Spironolactone 25 Mg Tablet PO 2XD SANDI Discontinued Medications Generic Name Dose Route Start Last Admin Trade Name Freq PRN Reason Stop Dose Admin Albuterol/Ipratropium 3 ml 04/11/25 12:11 04/11/25 12:51 Ipratropium/Albuterol Vial.Neb NEB 04/11/25 12:12 Not Given ONCE STA Albuterol/Ipratropium 3 ml 04/11/25 12:15 04/11/25 12:16 Ipratropium/Albuterol Vial.Neb NEB 04/11/25 12:16 3 ml ONCE ONE Administration Sodium Chloride 500 mls @ 100 mls/hr 04/11/25 13:07 04/11/25 15:22 Sodium Chloride IV 04/11/25 18:06 100 mls/hr ONCE ONE Administration MAGNESIUM SULFATE IN WATER 2 gm in 50 mls @ 25 mls/hr 04/11/25 13:07 04/11/25 13:18 Magnesium Sulf 2 G/50 Ml Bag IV 04/11/25 15:06 25 mls/hr ONCE ONE Administration Potassium Chloride 20 meq in 100 mls @ 50 mls/hr 04/11/25 13:12 04/11/25 15:21 Potassium Chloride 20 Meq/100 Ml Premix IV 04/11/25 15:11 50 mls/hr ONCE ONE Administration Methylprednisolone Sodium Succinate 125 mg 04/11/25 12:11 04/11/25 12:25 Methylprednisolone Sod Succ/Pf 125 Mg/2 Ml Vial IVP 04/11/25 12:12 125 mg ONCE ONE Administration Metoprolol Tartrate 5 mg 04/11/25 13:43 04/11/25 13:48 Metoprolol Tartrate 5 Mg/5 Ml Vial IVP 04/11/25 13:44 5 mg [place] [address] Diagnostic Imaging Diagnostic Imaging Report : [id number] Signed Patient: SHARRON SERRA Acct:[id number] Medical Record: [id number] : 1940 Loc: ED Room/Bed: Age/Sex: 85 / F ADM Status: REG ER Date of Service: 04/11/25 Ordering Physician: LAENA WICK MD Procedure(s): CHEST, 1V AP ONLY Report Number(s): [id number] Accession Number(s): [id number] cc: LEYDI VERNON APRN; ALENA WICK MD CHEST RADIOGRAPH INDICATION: Dyspnea COMPARISON: Chest radiograph(s) 11/26/2024 TECHNIQUE: Frontal chest radiograph(s). 1 view(s) total. FINDINGS: Bibasilar patchy opacities. Small pleural effusions. No pneumothorax. CABG. Aortic atheromatous calcifications. Mild to moderate prominence of the cardiomediastinal cardiomediastinal silhouette stable. The vas are grossly intact. IMPRESSION: Patchy bibasilar opacities may be related to atelectasis and/or pneumonia. Small pleural effusions. Dictated By: AMARI KELLER MD Signed By: AMARI KELLER MD Dictated Date/Time: 04/11/25 1249 Transcribed Date/Time: 04/11/25 1249 Signed Date/Time: 04/11/25 1257 Vital Signs: Temp Pulse Resp BP Pulse Ox 04/11/25 12:01 98.1 F 81 26 H 164/64 H 85 L 15:32 - Spoke with on-call hospitalist (DESTINY Salinas) regarding patient status and current workup and management for low magnesium, low potassium, acute on chronic respiratory failure. Patient remains hemodynamically stable on baseline oxygen 4 L nasal cannula. Patient has received 2 g magnesium and is currently getting IV potassium repletion. Awaiting urine collection at this time. Hospitalist agrees to accept patient for further workup and management as inpatient status. Discharge Plan Discharge Patient Disposition: ADMITTED INPATIENT Discharge Problem: Hypomagnesemia, Hypokalemia, Acute and chronic respiratory failure Did you review [place] [employer] for ALL controlled substances?: Not Applicable ED Provider: ALENA WICK Condition: Good
[2025-04-11] MEDS: SOLU-MEDROL 125 MG IVP ONE (12:25)
[2025-04-11 12:27] LABS: IMMATURE GRANULOCYTE # (AUTO) 0.1 (0.0-1.0); IMMATURE GRANULOCYTE % (AUTO) 1.2 % (0.0-5.0); RDW COEFFICIENT OF VARIATION 15.9 % (11.6-14.8)
[2025-04-11 12:31] LABS: ABG O2 HGB 91.1 % (95-100); ABG PCO2 40.0 mmHg (35-45); ABG PH 7.40 (7.35-7.45); ABG PO2 63.0 mmHg (85-100); BEecf 0 (-2.0-3.0); HCO3 24.8 (21-28); TCO2 26.0 (19-24)
[2025-04-11 12:45] LABS: CREATININE 1.18 mg/dL (0.60-1.30)
[2025-04-11] MEDS: DUONEB NEB STA (12:51)
[2025-04-11 12:52] LABS: INR 1.29 SI (0.0-3.9)
--- NOTE | 2025-04-11 12:57 | DI ---
CHEST RADIOGRAPH INDICATION: Dyspnea COMPARISON: Chest radiograph(s) 11/26/2024 TECHNIQUE: Frontal chest radiograph(s). 1 view(s) total. FINDINGS: Bibasilar patchy opacities. Small pleural effusions. No pneumothorax. CABG. Aortic atheromatous calcifications. Mild to moderate prominence of the cardiomediastinal cardiomediastinal silhouette stable. The vas are grossly intact. IMPRESSION: Patchy bibasilar opacities may be related to atelectasis and/or pneumonia. Small pleural effusions.
[2025-04-11 13:13] LABS: MOLECULAR FLU A NEGATIVE BY NAAT (NEGATIVE); MOLECULAR FLU B NEGATIVE BY NAAT (NEGATIVE); RSV MOLECULAR NEGATIVE BY NAAT (NEGATIVE); SARS COV-2 RNA RAPID NAAT NEGATIVE (NEGATIVE)
[2025-04-11 13:16] LABS: ERYTHROCYTE SEDIMENTATION RATE 21 mm/hr (0-20)
[2025-04-11] MEDS: MAGNESIUM SULF 2 G/50 ML BAG 2 GM/50 ML PIGGYBACK IV ONE ×2 (13:18→20:06)
[2025-04-11] MEDS: LOPRESSOR IVP STA (13:48)
[2025-04-11] MEDS: POTASSIUM CHLORIDE 20 MEQ/100 ML PREMIX 20 MEQ/100 ML BAG IV ONE (15:21)
[2025-04-11] MEDS: SODIUM CHLORIDE 500 ML IV ONE (15:22)
[2025-04-11 17:53] VITALS: BMI 32.1
[2025-04-11] MEDS: CARDIZEM CD PO SCH (18:33)
[2025-04-11] MEDS ORDERED: DUONEB NEB SCH (18:45)
[2025-04-11 19:38] LABS: LEUKOCYTE ESTERASE ,URINE Negative (NEGATIVE); URINE, BLOOD Negative (NEGATIVE)
[2025-04-11 19:42] LABS: GLUCOSE, URINE (UA) 3+ (NEGATIVE)
[2025-04-11] MEDS: ELIQUIS PO SCH (20:04)
[2025-04-11] MEDS: BENADRYL PO PRN (20:04)
[2025-04-11] MEDS: ALDACTONE PO SCH (20:04)
[2025-04-11] MEDS: TYLENOL PO PRN (20:04)
[2025-04-11] MEDS: K-DUR PO ONE (20:04)
[2025-04-11] MEDS: SOLU-MEDROL 40 MG IVP SCH (20:05)
[2025-04-11] MEDS: ASTELIN 0.1% NAS SCH (20:05)
[2025-04-11] MEDS: FLONASE NAS SCH (20:05)
[2025-04-11] MEDS: PEPCID IVP SCH (20:05)
[2025-04-11] MEDS: LOPRESSOR IVP ONE (20:50)
[2025-04-11] MEDS: PRED FORTE 1% EACHEYE SCH (21:02)
[2025-04-12] MEDS ORDERED: DUONEB NEB SCH
[2025-04-12] MEDS: XOPENEX 1.25 MG NEB PRN (00:22)
[2025-04-12] MEDS: PROTONIX PO SCH (05:15)
[2025-04-12 05:44] LABS: IMMATURE GRANULOCYTE # (AUTO) 0.0 (0.0-1.0); IMMATURE GRANULOCYTE % (AUTO) 0.7 % (0.0-5.0); RDW COEFFICIENT OF VARIATION 15.9 % (11.6-14.8)
[2025-04-12 06:04] LABS: CREATININE 1.01 mg/dL (0.60-1.30)
[2025-04-12] MEDS: JARDIANCE PO SCH (08:19)
[2025-04-12] MEDS: DETROL LA PO SCH (08:19)
[2025-04-12] MEDS: PRAVACHOL PO SCH (08:19)
[2025-04-12] MEDS: DITROPAN XL PO SCH (08:19)
[2025-04-12] MEDS: CARDIZEM CD PO SCH (08:19)
[2025-04-12] MEDS: TRIGLIDE PO SCH (08:19)
[2025-04-12] MEDS: BUMEX PO SCH (08:20)
[2025-04-12] MEDS: ZYLOPRIM PO SCH (08:20)
[2025-04-12] MEDS ORDERED: BUMEX PO SCH (09:00)
[2025-04-12] MEDS ORDERED: XOPENEX 1.25 MG NEB SCH (09:30)
[2025-04-12] MEDS: MAGNESIUM SULF 2 G/50 ML BAG 2 GM/50 ML PIGGYBACK IV ONE (10:04)
--- NOTE | 2025-04-12 10:50 | PCM ---
Date of Service Date Seen by Provider: 04/12/25 Time Seen by Provider: 09:00 Admit Day/Time Admission Date: 04/11/25 Reason for Admission Chief Complaint: HYPOMAGNESIUM, ACUTE OR CHRONIC RESP FAILURE Hospital Provider Hospital Provider: WENDIE PALACIOS, [facility] Primary Care Physician Primary Care Physician: LEYDI VERNON APRN History of Present Illness History of Present Illness: 85 yo female with pmh with Afib, CHF, Chronic Respiratory Failure on 3L at baseline, DM2 presented to the ER with complaints of worsening shortness of breath and rash. States her arthritis was acting up and had her son put Aspercreme on her back and she rubbed it on her chest as well. Diffuse red, itchy rash later showed up after application. Denies any reaction previously. O2 sat was also 85% and was requiring 6L in ER. Receiving 2 nebs and steroids. She was then able to be weaned down to 4L. BNP elevated >4000, new pleural effusions present on x-ray as well as atelectasis vs pneumonia. Mag was found to be 0.5. States she has had some swelling in BLE but mildly improves with elevation. Denies any fever or cough. Of note, patient was hospitalized at [facility] the beginning of March for Afib. Had difficulties getting her rate controlled. Attempted cardioversion x 2 without success. Finally was able to be rate controlled with cardizem and had been doing well. Echo on 03/08 showed EF 41-45%. [facility] has scheduled repeat in June after Afib is better controlled. No pleural effusions noted on xray at that time. Admitted to med/surg inpatient. Case Discussed With Case Discussed With: Patient's case was discussed with the ER Physicians, Dr. Ireland. 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 - Presence of aortocoronary bypass graft (ICD-10) Hx of CABG Z95.1 - Presence of aortocoronary bypass graft (ICD-10) History of cholecystectomy Z90.49 - Acquired absence of other specified parts of digestive tract (ICD- 10) History of hysterectomy Z90.710 - Acquired absence of both cervix and uterus (ICD-10) Family History Mother Dementia Mother AMI (acute myocardial infarction) Mother Hypertension SISTER Hypertension FATHER Bone cancer SISTER Cardiac disease CVA (cerebral vascular accident) MATERNAL GRANDMOTHER Cardiac disease Glaucoma Brain cancer Other No known health problems Social History Smoking and tobacco status: Former smoker Tobacco: How many years used: 30 Second hand smoke exposure: No Alcohol intake: never Substance use type: does not use Special jennifer needs: No Agree to transfusion: Yes Adopted: No Caregiver/support person: No Foster care: No Household members: none Housing: house Marital status: D Lives independently: Yes Daycare: no daycare Number of children: 2 Financial difficulty paying for basics: not very hard service: No USP: No Current occupational status: retired History of recent travel: No Do you think of yourself as: straight/heterosexual Current gender identity: female Seatbelt use: always Helmet use: No Drives intoxicated or rides with intoxicated tank truck driver: No Water heater temperature set < 120 degrees: Yes Working smoke detector in home: Yes Fire extinguisher in home: Yes Carbon monoxide detector in home: Yes Firearms in home: No Allergies Allergies Allergy/AdvReac Type Severity Reaction Status Date / Time aspirin AdvReac Verified 04/11/25 13:25 atorvastatin (From Lipitor) AdvReac leg pain Verified 04/11/25 13:25 bacitracin (From Neosporin AdvReac Rash Verified 04/11/25 13:25 ([id number])) bacitracin zinc (From AdvReac Rash Verified 04/11/25 13:25 Neosporin ([id number])) diclofenac (From Aspercreme AdvReac Verified 04/11/25 13:25 Arthritis Pain) neomycin sulfate (From AdvReac Rash Verified 04/11/25 13:25 Neosporin ([id number])) Penicillins AdvReac Unknown Verified 04/11/25 13:25 polymyxin B (From Neosporin AdvReac Rash Verified 04/11/25 13:25 ([id number])) TAPE AdvReac Rash Uncoded 04/11/25 13:25 Current Medications Home Medications Acetaminophen (Acetaminophen 325 Mg Tablet) 650 mg PO Q4H PRN PRN Reason: Mild Pain Last Admin: 04/11/25 20:04 Dose: 650 mg Allopurinol (Allopurinol 100 Mg Tablet) 200 mg PO DAILY [facility] Last Admin: 04/12/25 08:20 Dose: 200 mg Apixaban (Apixaban 5 Mg Tab) 5 mg PO 2XD [facility] Last Admin: 04/12/25 08:20 Dose: 5 mg Azelastine HCl (Azelastine Hcl 30 Ml Nasal [place]) 1 spray ERNESTO BID [facility] Last Admin: 04/12/25 08:18 Dose: 1 spray Bumetanide (Bumetanide 1 Mg Tablet) 1 mg PO DAILY [facility] On Hold: 04/12/25 09:50 Last Admin: 04/12/25 08:20 Dose: 1 mg Diltiazem HCl (Diltiazem Hcl 180 Mg Cap.Er.24h) 360 mg PO Q24H [facility] Last Admin: 04/12/25 08:19 Dose: 360 mg Diphenhydramine HCl (Diphenhydramine Hcl 25 Mg Capsule) 25 mg PO Q6H PRN PRN Reason: Allergy Symptoms Last Admin: 04/12/25 08:20 Dose: 25 mg Empagliflozin (Empagliflozin 10 Mg Tablet) 10 mg PO DAILY [facility] Last Admin: 04/12/25 08:19 Dose: 10 mg Famotidine (Famotidine Inj 20 Mg/2 Ml Vial) 20 mg IVP Q12HR SANDI Last Admin: 04/12/25 08:18 Dose: 20 mg Fenofibrate (Fenofibrate 54 Mg Tablet) 54 mg PO DAILY [facility] Last Admin: 04/12/25 08:19 Dose: 54 mg Fluticasone Propionate (Fluticasone Propionate 16 Gm Nasal [place]) 1 spray ERNESTO BID [facility] Last Admin: 04/12/25 08:18 Dose: 1 spray Furosemide (Furosemide Inj 40 Mg/4 Ml Vial) 40 mg IVP Q8HR [facility] MAGNESIUM SULFATE IN WATER (Magnesium Sulf 2 G/50 Ml Bag) 2 gm in 50 mls @ 25 mls/hr IV ONCE ONE Stop: 04/12/25 11:38 Last Admin: 04/12/25 10:04 Dose: 25 mls/hr Levalbuterol HCl (Levalbuterol Hcl 1.25 Mg/3 Ml Vial.Neb) 1.25 mg NEB RTQ6H PRN PRN Reason: Wheezing Methylprednisolone Sodium Succinate (Methylprednisolone Sod Succ/Pf 40 Mg/Ml Vial) 40 mg IVP Q8HR [facility] Last Admin: 04/12/25 05:15 Dose: 40 mg Oxybutynin Chloride (Oxybutynin Chloride 5 Mg Tab.Er.24) 10 mg PO DAILY [facility] Last Admin: 04/12/25 08:19 Dose: 10 mg Pantoprazole Sodium (Pantoprazole Sodium 40 Mg Tablet.Dr) 40 mg PO QDAC2 [facility] Last Admin: 04/12/25 05:15 Dose: 40 mg Polyethylene Glycol (Polyethylene Glycol 17 Gm Powd.Pack) 17 gm PO DAILY PRN PRN Reason: Constipation Pravastatin Sodium (Pravastatin Sodium 40 Mg Tablet) 80 mg PO DAILY [facility] Last Admin: 04/12/25 08:19 Dose: 80 mg Prednisolone Acetate (Prednisolone Acetate 10 Ml Op Susp) 2 drop EACHEYE BID [facility] Last Admin: 04/12/25 08:27 Dose: Not Given Sodium Chloride (0.9% Sodium Chloride 10 Ml Disp.Syrin) 1 syr IVF PRN PRN PRN Reason: To flush IV Spironolactone (Spironolactone 25 Mg Tablet) 25 mg PO 2XD [facility] Last Admin: 04/12/25 08:20 Dose: 25 mg Tolterodine Tartrate (Tolterodine Tartrate 4 Mg Cap.Er.24h) 4 mg PO DAILY [facility] Last Admin: 04/12/25 08:19 Dose: 4 mg cholecalciferol (vitamin D3) 25 mcg (1,000 unit) capsule (Vitamin D3) 1,000 mg PO DAILY 03/01/15 [History Confirmed 04/11/25] albuterol sulfate 90 mcg/actuation aerosol inhaler 2 puff inhalation Q4-6H PRN Bronchodilation #100 grams 08/11/22 [Rx Confirmed 04/11/25] polyethylene glycol 3350 17 gram/dose oral powder (Miralax) 17 g PO QDAY PRN constipation 08/17/22 [History Confirmed 04/11/25] oxybutynin chloride 10 mg tablet,extended release 24 hr 10 mg PO QDAY 12/12/23 [History Confirmed 04/11/25] azelastine 205.5 mcg (0.15 %) nasal spray (Astepro Allergy) 1 spray intranasal BID #11 mL 08/13/24 [Rx Confirmed 04/11/25] fluticasone propionate 50 mcg/actuation nasal spray,suspension (Flonase Allergy Relief) 1 spray intranasal BID #16 grams 08/13/24 [Rx Confirmed 04/11/25] prednisolone acetate 1 % eye drops,suspension 2 drp ophthalmic (eye) BID 11/26/24 [History Confirmed 04/11/25] buspirone 5 mg tablet 5 mg PO DAILY #7 tabs 11/29/24 [Rx Confirmed 04/11/25] citalopram 10 mg tablet 10 mg PO DAILY #7 tabs 11/29/24 [Rx Confirmed 04/11/25] citalopram 20 mg tablet 20 mg PO DAILY #4 tabs 11/29/24 [Rx Confirmed 04/11/25] ipratropium 0.5 mg-albuterol 3 mg (2.5 mg base)/3 mL nebulization soln 3 ml inhalation QID PRN shortness of breath #180 mL 11/29/24 [Rx Confirmed 04/11/25] pantoprazole 40 mg tablet,delayed release 40 mg PO DAILY #30 tabs 12/17/24 [Rx Confirmed 04/11/25] pravastatin 80 mg tablet 80 mg PO DAILY #30 tabs 12/17/24 [Rx Confirmed 04/11/25] allopurinol 100 mg tablet 200 mg (2 x 100 mg) PO DAILY #60 film 02/11/25 [Rx Confirmed 04/11/25] fenofibrate 54 mg tablet 54 mg PO DAILY #30 tabs 02/11/25 [Rx Confirmed 04/11/25] metformin 500 mg tablet 500 mg PO DAILY #90 tabs 02/11/25 [Rx Confirmed 04/11/25] apixaban 5 mg tablet (Eliquis) 5 mg PO 2XD 04/11/25 [History Confirmed 04/11/25] bumetanide 1 mg tablet 1 mg PO DAILY 04/11/25 [History Confirmed 04/11/25] diltiazem HCl 360 mg capsule,extended release 24 hr 360 mg PO Q24H 04/11/25 [History Confirmed 04/11/25] empagliflozin 10 mg tablet (Jardiance) 10 mg PO DAILY 04/11/25 [History Confirmed 04/11/25] spironolactone 25 mg tablet 25 mg PO 2XD 04/11/25 [History Confirmed 04/11/25] tolterodine 4 mg capsule,extended release 24 hr 4 mg PO DAILY 04/11/25 [History Confirmed 04/11/25] Opioid Naive vs. Tolerant Does Patient Take Opioids?: No Is Patient Opioid Naive?: Yes What is Opioid Naive?: *Opioid Naive implies the patient is not already taking opioids or not chronically receiving opioids on a daily basis. *PRN dosing is not "usually" associated with tolerance. *Patients are at higher risk of over-sedation and aspiration. Is Patient Opioid Tolerant?: No What is Opioid Tolerant?: *Opioid Tolerance implies less than the expected response to an opioid. *Acquired tolerance is defined by the patient taking 60mg of oral morphine daily (or equianalgesic dose of another opioid) for 1 week or more. *Often associated with chronic pain. *May take more than usual dose to achieve desired pain control. Review of Systems Constitutional: Denies Fever or Weakness Head: Reports Normocephalic Eyes: Reports No symptoms Ears: Reports No symptoms Nose: Reports No symptoms Mouth: Reports No symptoms Throat: Reports No symptoms Cardiovascular: Reports No symptoms Respiratory: Reports Shortness of air Gastrointestinal: Reports Constipation Genitourinary: Reports No Symptoms Musculoskeletal: Reports No symptoms Endocrine: Reports No symptoms Hematology: Reports No symptoms Immunology: Reports No symptoms Neurological: Reports No symptoms Psychiatric: Reports No symptoms Physical examination Most Recent Vital Signs: Most Recent Vital Signs Temperature 97.7 F 04/12/25 05:16 Temperature Source Oral 04/12/25 05:16 Temperature Source Infrared 04/11/25 12:01 Pulse Rate 92 04/12/25 07:51 Respiratory Rate 24 H 04/12/25 07:51 Blood Pressure 126/64 04/12/25 05:16 Blood Pressure Mean 84 04/12/25 05:16 Blood Pressure Left Arm 132/82 04/11/25 17:38 Blood Pressure Location Left Arm 04/12/25 05:16 Blood Pressure Position Supine 04/12/25 05:16 O2 Sat by Pulse Oximetry 95 04/12/25 10:00 Oxygen Delivery Method Nasal Cannula 04/12/25 10:00 Oxygen Flow Rate 4 04/12/25 10:00 Height 5 ft 5 in 04/11/25 17:38 Weight 87.7 kg 04/11/25 17:38 Telemetry Type Bedside Monitor 04/12/25 07:00 Telemetry Monitoring Continues 04/12/25 07:00 Irregular Telemetry Rate (Approximate) 80-90 BPM 04/12/25 01:00 Telemetry Heart Rate 120 H 04/12/25 07:00 Telemetry SPO2 95 04/12/25 07:00 EKG QRS Interval 0.08 04/12/25 07:00 Telemetry Strip Reading Afib RVR w/ PVC 04/12/25 07:00 Appearance: Positive No Apparent Distress and Alert and Oriented x3 Skin: Positive Rashes (erythematous macular rash diffuse to back and torso), Warm and Good Color HEENT: Positive Normocephalic and PERRLA Neck: Positive Supple and Midline Trachea Chest/Lungs: Positive Symmetrical With Equal Breath Sounds and Clear to Auscultation Bilaterally (diminished); Negative Rales, Rhonci or Wheezes Heart: Positive Pulses Normal, Irregular Rhythm and Tachycardia GI/: Positive Soft, Nontender, Bowel Sounds Normal and No Distention Musculoskeletal: Positive Not Examined Extremities: Positive Edema (+2 pitting ble), Intact Peripheral Pulses, Stable Joints Without Laxity and Good ROM in All Joints Neurological: Positive Sensation Intact, Motor intact, Reflexes Intact, Alert, Oriented and Muscle Strength 5/5 in Upper and Lower Extremities Bilaterally Labs This Visit Labs This Visit: Labs This Visit 04/11/25 04/11/25 04/11/25 12:15 12:20 12:51 WBC 6.57 RBC 4.28 Hgb 12.5 Hct 39.4 MCV 92.1 MCH 29.2 MCHC 31.7 L RDW Coeff of Cathy 15.9 H Plt Count 359 Immature Gran % (Auto) 1.2 Neut % (Auto) 76.4 H Lymph % (Auto) 11.1 Peach % (Auto) 5.2 Eos % (Auto) 5.8 Baso % (Auto) 0.3 Neut # (Auto) 5.0 Lymph # (Auto) 0.7 Peach # (Auto) 0.3 L Eos # (Auto) 0.4 Baso # (Auto) 0.0 Immature Gran # (Auto) 0.1 ESR 21 H PT 13.2 H INR 1.29 Puncture Site Rrad Base Excess 0 O2 Saturation 91.7 L ABG pH 7.40 ABG pCO2 40.0 ABG pO2 63.0 L ABG HCO3 24.8 ABG Total CO2 26.0 H Dung Test Pos Hemoglobin 0.8 Oxyhemoglobin 91.1 L Carboxyhemoglobin 1.6 H Total Hemoglobin 12.6 O2 Delivery Device Cannula Oxygen Liter Flow 6.00 Sodium 135.5 Potassium 3.28 L Chloride 101.5 Carbon Dioxide 23.8 Anion Gap 13.48 BUN 24.0 H Creatinine 1.18 Estimated GFR (MDRD) 44.00 BUN/Creatinine Ratio 20.33 Glucose 151.5 H Lactic Acid 3.10 H Calcium 9.27 Magnesium 0.58 L* Total Bilirubin 0.84 AST 26.4 ALT 16.7 Alkaline Phosphatase 49.3 L Troponin I 0.016 NT-Pro-B Natriuret Pep 4500 H Total Protein 6.29 L Albumin 3.59 Globulin 2.70 Albumin/Globulin Ratio 1.32 Procalcitonin 0.11 H D-Dimer 768.61 H Urine Color Urine Clarity Urine pH Ur Specific [place] Urine Protein Urine Glucose (UA) Urine Ketones Urine Blood Urine Nitrite Urine Bilirubin Urine Urobilinogen Ur Leukocyte Esterase Influ A Molecular Assay Negative by naat Influ B Molecular Assay Negative by naat RSV Antigen Negative by naat SARS CoV-2 RNA Rapid SARAH Negative 04/11/25 04/12/25 19:15 05:34 WBC 5.44 RBC 4.01 L Hgb 11.4 L Hct 36.9 L MCV 92.0 MCH 28.4 MCHC 30.9 L RDW Coeff of Cathy 15.9 H Plt Count 349 Immature Gran % (Auto) 0.7 Neut % (Auto) 87.7 H Lymph % (Auto) 9.4 L [place] % (Auto) 2.0 Eos % (Auto) 0.0 Baso % (Auto) 0.2 Neut # (Auto) 4.8 Lymph # (Auto) 0.5 L [place] # (Auto) 0.1 L Eos # (Auto) 0.0 Baso # (Auto) 0.0 Immature Gran # (Auto) 0.0 ESR PT INR Puncture Site Base Excess O2 Saturation ABG pH ABG pCO2 ABG pO2 ABG HCO3 ABG Total CO2 Dung Test Hemoglobin Oxyhemoglobin Carboxyhemoglobin Total Hemoglobin O2 Delivery Device Oxygen Liter Flow Sodium 136.4 Potassium 3.85 Chloride 104.3 Carbon Dioxide 25.2 Anion Gap 10.75 BUN 26.4 H Creatinine 1.01 Estimated GFR (MDRD) 52.00 BUN/Creatinine Ratio 26.13 Glucose 155.7 H Lactic Acid Calcium 9.23 Magnesium 1.81 Total Bilirubin 0.64 AST 22.1 ALT 17.3 Alkaline Phosphatase 49.4 L Troponin I NT-Pro-B Natriuret Pep Total Protein 5.92 L Albumin 3.37 L Globulin 2.55 Albumin/Globulin Ratio 1.32 Procalcitonin 0.05 D-Dimer Urine Color Yellow Urine Clarity Clear Urine pH 5.0 Ur Specific [place] 1.025 Urine Protein Negative Urine Glucose (UA) 3+ H Urine Ketones Negative Urine Blood Negative Urine Nitrite Negative Urine Bilirubin Negative Urine Urobilinogen 0.2 Ur Leukocyte Esterase Negative Influ A Molecular Assay Influ B Molecular Assay RSV Antigen SARS CoV-2 RNA Rapid SARAH Imaging Imaging: CHEST RADIOGRAPH INDICATION: Dyspnea COMPARISON: Chest radiograph(s) 11/26/2024 TECHNIQUE: Frontal chest radiograph(s). 1 view(s) total. FINDINGS: Bibasilar patchy opacities. Small pleural effusions. No pneumothorax. CABG. Aortic atheromatous calcifications. Mild to moderate prominence of the cardiomediastinal cardiomediastinal silhouette stable. The vas are grossly intact. IMPRESSION: Patchy bibasilar opacities may be related to atelectasis and/or pneumonia. Small pleural effusions. Review Statement Review Statement: I have independently reviewed and interpreted the labs/EKGs/imaging that were ordered by the ER provider. I have reviewed all outside records that are available currently in our EMR including imaging/notes/labs from previous visits. Plan Plan: 1. Acute Hypoxic Respiratory Failure in setting of CHFrEF exacerbation - nebs, diuresis, wean to baseline oxygen when able 2. Acute on Chronic Systolic HFrEF Exacerbation - last echo 03/08 with EF 41-45%, new pleural effusions on xray compared to xray on 03/18, I&O, daily weight, lasix 40 mg Q8H IVP, 1800 fluid restriction 3. Hypomagnesemia - Improved, goal of 2, up to 1.8 this am, additional replacement ordered 4. Allergic Reaction d/t aspercream - steroids, pepcid, benadryl prn 5. Afib - continue home cardizem dosing, will adjust regimen if needed 6. COPD - does not appear exacerbated, continue home medications DVT Prophylaxis: Eliquis Time Spent: Greater than 80 minutes spent with patient, 50% of the time spent with this patient was devoted to counseling and coordination of care. [facility] Plannin minutes spent discussing advance care planning. Disposition: Admit to: Med/Surg IP Full Code Discussed Plan of Care with Dr. Renetta Iraheta. Medications Medication Orders: Medications Ordered Category Date Time Status 0.9 % Sodium Chloride [Saline Flush] Meds 04/11/25 12:11 Active 1 syr IVF PRN PRN Acetaminophen [Tylenol] Meds 04/11/25 18:11 Active 650 mg PO Q4H PRN Allopurinol [Zyloprim] Meds 04/12/25 09:00 Active 200 mg PO DAILY Apixaban [Eliquis] Meds 04/11/25 21:00 Active 5 mg PO 2XD Azelastine HCl [Astelin 0.1%] Meds 04/11/25 21:00 Active 1 spray ERNESTO BID Bumetanide [Bumex] Meds 04/12/25 09:00 Hold 1 mg PO DAILY Diltiazem HCl [Cardizem Cd] Meds 04/12/25 09:00 Active 360 mg PO Q24H Diphenhydramine HCl [Benadryl] Meds 04/11/25 18:10 Active 25 mg PO Q6H PRN Empaglifozin [Jardiance] Meds 04/12/25 09:00 Active 10 mg PO DAILY Famotidine Inj [Pepcid] Meds 04/11/25 18:10 Active 20 mg IVP Q12HR Fenofibrate [Triglide] Meds 04/12/25 09:00 Active 54 mg PO DAILY Fluticasone Propionate [Flonase] Meds 04/11/25 21:00 Active 1 spray ERNESTO BID Furosemide [Lasix] Meds 04/12/25 13:00 Active 40 mg IVP Q8HR Levalbuterol HCl [Xopenex 1.25 mg] Meds 04/12/25 09:03 Active 1.25 mg NEB RTQ6H PRN Magnesium Sulfate in Water [Magnesium Sulf 2 G/50 ml Meds 04/12/25 09:39 Active Bag] 2 gm in 50 ml IV ONCE Methylprednisolone Sod Succ/Pf [Solu-Medrol 40 mg] Meds 04/11/25 21:00 Active 40 mg IVP Q8HR Oxybutynin Chloride [Ditropan Xl] Meds 04/12/25 09:00 Active 10 mg PO DAILY Pantoprazole Sodium [Protonix] Meds 04/12/25 06:00 Active 40 mg PO QDAC2 Polyethylene Glycol 3350 [Miralax] Meds 04/12/25 09:00 Active 17 gm PO DAILY PRN CO Constipation Pravastatin Sodium [Pravachol] Meds 04/12/25 09:00 Active 80 mg PO DAILY Prednisolone Acetate [Pred Forte 1%] Meds 04/11/25 21:00 Active 2 drop EACHEYE BID Spironolactone [Aldactone] Meds 04/11/25 21:00 Active 25 mg PO 2XD Tolterodine Tartrate [Detrol LA] Meds 04/12/25 09:00 Active 4 mg PO DAILY
[2025-04-12] MEDS: CITRATE OF MAGNESIA PO ONE (11:42)
[2025-04-12] MEDS: LASIX IVP SCH (12:42)
[2025-04-12] MEDS: CARDIZEM PO ONE (12:59)
[2025-04-13] MEDS: XOPENEX 1.25 MG NEB PRN (03:51)
[2025-04-13] MEDS: BUMEX IVP ONE (03:53)
[2025-04-13 06:09] LABS: IMMATURE GRANULOCYTE # (AUTO) 0.1 (0.0-1.0); IMMATURE GRANULOCYTE % (AUTO) 0.9 % (0.0-5.0); RDW COEFFICIENT OF VARIATION 16.3 % (11.6-14.8)
[2025-04-13 06:24] LABS: CREATININE 1.5 mg/dL (0.60-1.30)
[2025-04-13] MEDS: MIRALAX PO PRN (08:15)
[2025-04-13] MEDS: CARDIZEM INJ IVP ONE (08:38)
[2025-04-13] MEDS: CARDIZEM CD PO SCH (09:20)
[2025-04-13] MEDS: VISIPAQUE 320 MG/ML 100ML IVP ONE (09:52)
[2025-04-13] MEDS: CARDIZEM 125 MG in SODIUM CHLORIDE 100ML 100 ML IV SCH (10:35)
--- NOTE | 2025-04-13 11:29 | PCM.PROG ---
Documented by User: WENDIE PALACIOS 04/13/25 11:56 Date/Time Seen Date Seen by Provider: 04/13/25 Time Seen by Provider: 08:15 Provider [facility] Chief Complaint Chief Complaint: HYPOMAGNESIUM, ACUTE OR CHRONIC RESP FAILURE Subjective Subjective: SOB continues. Requiring 5L this am. Legs are more edematous. Overnight had minimal urine output despite lasix. Once dose of IVP bumex given. Had 400 mL almost immediately. Afib RVR noted up into 150s-160s and O2 sat dropped down into 80s. Objective Appearance: Positive No Apparent Distress and Alert and Oriented x3 Chest/Lungs: Positive Symmetrical With Equal Breath Sounds and Clear to Auscultation Bilaterally (diminished); Negative Rales, Rhonci or Wheezes Heart: Positive Pulses Normal, Irregular Rhythm and Tachycardia GI/: Positive Soft, Nontender, Bowel Sounds Normal and No Distention Musculoskeletal: Positive Other (+2-3 pitting edema BLE) Neurological: Positive Sensation Intact, Motor intact, Reflexes Intact, Alert, Oriented and Other (generalized weakness) Vital Signs Vital Signs: Vital Signs: Last 24 Hours 04/12/25 13:00 04/12/25 14:00 04/12/25 14:00 Temperature 98.0 F Temperature Source Oral Pulse Rate 117 H Respiratory Rate 28 H Blood Pressure 112/56 L Blood Pressure Mean 74 Blood Pressure Location Left Arm Blood Pressure Position O2 Sat by Pulse Oximetry 92 L 93 L Oxygen Delivery Method Nasal Cannula Nasal Cannula Oxygen Flow Rate 4 4 Weight Telemetry Type Bedside Monitor Telemetry Monitoring Continues Irregular Telemetry Rate (Approximate) Telemetry Heart Rate 124 H Telemetry SPO2 92 L EKG QRS Interval 0.10 Telemetry Strip Reading Afib RVR 04/12/25 18:16 04/12/25 19:00 04/12/25 20:00 Temperature Temperature Source Pulse Rate 98 Respiratory Rate 28 H Blood Pressure 134/64 Blood Pressure Mean 87 Blood Pressure Location Left Arm Blood Pressure Position Supine O2 Sat by Pulse Oximetry 93 L Oxygen Delivery Method Nasal Cannula Nasal Cannula Oxygen Flow Rate 4 5 Weight Telemetry Type Remote Telemetry Telemetry Monitoring Continues Irregular Telemetry Rate (Approximate) Telemetry Heart Rate 102 H Telemetry SPO2 92 L EKG QRS Interval 0.06 Telemetry Strip Reading a fib 04/12/25 20:00 04/12/25 21:54 04/13/25 01:00 Temperature 98.1 F Temperature Source Oral Pulse Rate 119 H Respiratory Rate 28 H Blood Pressure 106/70 Blood Pressure Mean 82 Blood Pressure Location Right Arm Blood Pressure Position Sitting O2 Sat by Pulse Oximetry 92 L Oxygen Delivery Method Nasal Cannula Nasal Cannula Oxygen Flow Rate 4 4 Weight Telemetry Type Remote Telemetry Telemetry Monitoring Continues Irregular Telemetry Rate (Approximate) Telemetry Heart Rate 121 H Telemetry SPO2 93 EKG QRS Interval 0.05 L Telemetry Strip Reading AFIB w/ RVR 04/13/25 03:30 04/13/25 05:31 04/13/25 06:00 Temperature 97.6 F Temperature Source Oral Pulse Rate 99 115 H Respiratory Rate 34 H 28 H Blood Pressure 153/80 H 148/66 H Blood Pressure Mean 104 93 Blood Pressure Location Left Arm Left Arm Blood Pressure Position Supine Supine O2 Sat by Pulse Oximetry 87 L 93 L 93 L Oxygen Delivery Method Nasal Cannula Nasal Cannula Nasal Cannula Oxygen Flow Rate 4 5 5 Weight Telemetry Type Telemetry Monitoring Irregular Telemetry Rate (Approximate) Telemetry Heart Rate Telemetry SPO2 EKG QRS Interval Telemetry Strip Reading 04/13/25 06:00 04/13/25 07:00 04/13/25 08:00 Temperature Temperature Source Pulse Rate Respiratory Rate 31 H Blood Pressure Blood Pressure Mean Blood Pressure Location Blood Pressure Position O2 Sat by Pulse Oximetry Oxygen Delivery Method Nasal Cannula Oxygen Flow Rate 5 Weight 89.6 kg Telemetry Type Bedside Monitor Telemetry Monitoring Continues Irregular Telemetry Rate (Approximate) 140-150 BPM Telemetry Heart Rate Telemetry SPO2 89 L EKG QRS Interval 0.04 L Telemetry Strip Reading AFIB W/ RVR Lab Results Lab Results: Lab Results: Last 24 Hours 04/13/25 04/11/25 05:52 12:15 WBC 9.22 RBC 4.05 L Hgb 11.7 L Hct 37.7 MCV 93.1 MCH 28.9 MCHC 31.0 L RDW Coeff of Cathy 16.3 H Plt Count 416 Immature Gran % (Auto) 0.9 Neut % (Auto) 89.5 H Lymph % (Auto) 5.6 L Ocean % (Auto) 3.8 Eos % (Auto) 0.1 Baso % (Auto) 0.1 Neut # (Auto) 8.3 H Lymph # (Auto) 0.5 L Ocean # (Auto) 0.4 Eos # (Auto) 0.0 Baso # (Auto) 0.0 Immature Gran # (Auto) 0.1 Sodium 138.1 Potassium 4.31 Chloride 101.4 Carbon Dioxide 28.8 Anion Gap 12.21 BUN 47.9 H Creatinine 1.50 H Estimated GFR (MDRD) 33.00 BUN/Creatinine Ratio 31.93 Glucose 164.8 H Calcium 9.54 Magnesium 2.44 H Total Bilirubin 0.76 AST 29.4 ALT 23.7 Alkaline Phosphatase 54.1 C-Reactive Prot, Quant 16 H Total Protein 6.35 Albumin 3.77 Globulin 2.58 Albumin/Globulin Ratio 1.46 Additional Comments Additional Comments: I have independently reviewed and interpreted the labs/EKGs/imaging ordered during this hospital stay. I have reviewed outside records that are available in our EMR that pertain to medical stay including imaging/notes/labs from previous visits. Active Medications Active Medications: Medications Generic Name Dose Route Start Last Admin Trade Name Freq PRN Reason Stop Dose Admin Acetaminophen 650 mg 04/11/25 18:11 04/11/25 20:04 Acetaminophen 325 Mg Tablet PO 650 mg Q4H PRN Administration Mild Pain Allopurinol 200 mg 04/12/25 09:00 04/13/25 08:15 Allopurinol 100 Mg Tablet PO 200 mg On Hold: 04/13/25 08:30 DAILY SANDI Administration Apixaban 5 mg 04/11/25 21:00 04/13/25 10:30 Apixaban 5 Mg Tab PO 5 mg 2XD SANDI Administration Azelastine HCl 1 spray 04/11/25 21:00 04/13/25 09:20 Azelastine Hcl 30 Ml Nasal [place] ERNESTO Not Given BID SANDI Bumetanide 1 mg 04/12/25 09:00 04/12/25 08:20 Bumetanide 1 Mg Tablet PO 1 mg On Hold: 04/12/25 09:50 DAILY SANDI Administration Diltiazem HCl 480 mg 04/13/25 09:00 04/13/25 09:20 Diltiazem Hcl 120 Mg Cap.Er.24h PO Not Given On Hold: 04/13/25 09:01 DAILY SANDI Diphenhydramine HCl 25 mg 04/11/25 18:10 04/13/25 03:22 Diphenhydramine Hcl 25 Mg Capsule PO 25 mg Q6H PRN Administration Allergy Symptoms Empagliflozin 10 mg 04/12/25 09:00 04/13/25 08:16 Empagliflozin 10 Mg Tablet PO 10 mg DAILY SANDI Administration Famotidine 20 mg 04/11/25 18:10 04/13/25 08:16 Famotidine Inj 20 Mg/2 Ml Vial IVP 20 mg Q12HR SANDI Administration Fenofibrate 54 mg 04/12/25 09:00 04/13/25 08:15 Fenofibrate 54 Mg Tablet PO 54 mg DAILY SANDI Administration Fluticasone Propionate 1 spray 04/11/25 21:00 04/13/25 08:39 Fluticasone Propionate 16 Gm Nasal [place] ERNESTO Not Given BID SANDI Furosemide 40 mg 04/12/25 13:00 04/13/25 06:19 Furosemide Inj 40 Mg/4 Ml Vial IVP Not Given Q8HR SANDI Diltiazem HCl 125 mg/ Sodium 125 mls @ 5 mls/hr 04/13/25 09:00 04/13/25 10:35 Chloride IV 5 mg/hr TITRATION SANDI 5 mls/hr Protocol Administration 5 MG/HR Levalbuterol HCl 1.25 mg 04/12/25 09:03 04/13/25 03:51 Levalbuterol Hcl 1.25 Mg/3 Ml Vial.Neb NEB 1.25 mg RTQ6H PRN Administration Wheezing Methylprednisolone Sodium Succinate 40 mg 04/11/25 21:00 04/13/25 06:16 Methylprednisolone Sod Succ/Pf 40 Mg/Ml Vial IVP 40 mg Q8HR SANDI Administration Oxybutynin Chloride 10 mg 04/12/25 09:00 04/13/25 08:15 Oxybutynin Chloride 5 Mg Tab.Er.24 PO 10 mg DAILY SANDI Administration Pantoprazole Sodium 40 mg 04/12/25 06:00 04/13/25 05:47 Pantoprazole Sodium 40 Mg Tablet.Dr PO 40 mg QDAC2 SANDI Administration Polyethylene Glycol 17 gm 04/12/25 09:00 04/13/25 08:15 Polyethylene Glycol 17 Gm Powd.Pack PO 17 gm DAILY PRN Administration Constipation Pravastatin Sodium 80 mg 04/12/25 09:00 04/13/25 08:15 Pravastatin Sodium 40 Mg Tablet PO 80 mg DAILY SANDI Administration Prednisolone Acetate 2 drop 04/11/25 21:00 04/13/25 08:39 Prednisolone Acetate 10 Ml Op Susp EACHEYE Not Given BID SANDI Sodium Chloride 1 syr 04/11/25 12:11 04/13/25 08:16 0.9% Sodium Chloride 10 Ml Disp.Syrin IVF 1 syr PRN PRN Administration To flush IV Spironolactone 25 mg 04/11/25 21:00 04/13/25 08:15 Spironolactone 25 Mg Tablet PO 25 mg 2XD SANDI Administration Tolterodine Tartrate 4 mg 04/12/25 09:00 04/12/25 08:19 Tolterodine Tartrate 4 Mg Cap.Er.24h PO 4 mg On Hold: 04/13/25 08:28 DAILY SANDI Administration Plan Plan: 1. Acute Hypoxic Respiratory Failure in setting of CHFrEF exacerbation - Unchanged, hypoxic on ambulation, checking CTA to rule out other etiologiy, nebs, diuresis, wean to baseline oxygen when able 2. Acute on Chronic Systolic HFrEF Exacerbation - last echo 03/08 with EF 41-45%, new pleural effusions on xray compared to xray on 03/18, I&O, daily weight, lasix 40 mg Q8H IVP, 1800 fluid restriction 3. Hypomagnesemia - Resolved, now 2.2 4. Allergic Reaction d/t aspercream - Unchanged, continue steroids, pepcid, benadryl prn 5. Afib RVR - remaining 120s-140s early am, IVP dose cardizem given with minimal response, start gtt per protocol, will wean when able 6. COPD - does not appear exacerbated, continue home medications 7. Urinary Retention - holding oxybutynin and tolterodine, bladder scan showed >400 post void, anchor english, I&O 8. Hospital Acquired Pneumonia - covering due to recent hospitalization and history of COPD, zosyn Q6H IVP, sputum culture, legionella, strep pneumo, and MRSA ordered DVT Prophylaxis: Eliquis Review Statement Review Statement: I have personally discussed and reviewed the patient's visit/currently labs/imaging/decision making with Dr. Iraheta, my supervising attending. Greater that 50 minutes spent with patient, 50% of the time spent with this patient was devoted to counseling and coordination of care. Documented by User: JANI YOUNG MD 04/14/25 06:14 Chief Complaint Chief Complaint: HYPOMAGNESIUM, ACUTE OR CHRONIC RESP FAILURE Procedure Procedure and Findings -: I, Dr. Jani Young MD, M.P.H. was called by my ER nursing staff and was told that the hospitalist, Kwabena Oliveira NP had one of her floor patients (Ms. Bella Burch) in respiratory distress at approximately 0330 on 04/14/2025. My nursing staff got Kwabena Oliveira on the telephone for me shortly after to confirm that she needed me to intubate her patient as she was going to transfer the patient out because the patient was in critical condition and the receiving hospitalist wanted the patient intubated prior to transfer. Kwabena gave me a quick summary of the patient's past medical history and current condition. I reported to the patient's room at approximately 0340 to discuss current updates about the patient with nursing staff that was at bedside. At this time patient's vital signs were stable however the patient had a heart rate in the 120s and the patient was on a nonrebreather mask at 15 L keeping her O2 sat above 91%. The patient was agitated and restless that she was in obvious distress. I initially gave the patient IV Versed 2.5 mg to help with her agitation and restlessness in order to prepare for the following procedure: Endotracheal Intubation Date: 04/14/2025 Time Started: 344 Time Ended: 409 Indication: Respiratory Distress Attending: Dr. Jani Young MD, MPH A time-out was completed verifying correct patient, procedure, site, and position. The patient was placed in a flat position. Sedation was obtained using Versed 2.5 mg, and additionally with Etomidate 9 mg. A paralytic was used succinylcholine 130 mg. The patient was easily ventilated using an ambu bag. The [employer]/ MAC 3 BLADE was used and inserted into the oropharynx at which time there was a Grade 1 view of the vocal cords. A bougie was initially placed and visualized between the vocal cords into the trachea. A 6.5- st helenian endotracheal tube was inserted over the bougie and was visualized going through the vocal cords. Colorimetric change was visualized on the CO2 meter. Breath sounds were heard in both lung escobar equally. The endotracheal tube was placed at 23 cm, measured at the teeth. A chest x-ray was ordered to assess forpneumothoraxand verifyendotrachealtube placement. CXR showed endotracheal tube and NG tube in place. This radiograph was interpreted by the ER physician and over read by radiology. Estimated Blood Loss: 5 cc The patient tolerated the procedure well and there were no complications. The patient was placed on IV fentanyl drip at 1 mcg/kg/h for sedation and pain control. Patient's vital signs were stable prior to me leaving bedside after the procedure.
--- NOTE | 2025-04-13 11:36 | CT ---
EXAM: CT ANGIOGRAPHY CHEST HISTORY: Shortness of breath TECHNIQUE: CTA chest with intravenous contrast. PE protocol. Multiplanar images were provided with MIP images and 3-D reconstructions. COMPARISON: None FINDINGS: No pulmonary arterial thromboembolism identified. There is moderately severe atherosclerotic disease with no aortic aneurysm. Coronary artery calcifications are present. Heart size is significantly enlarged. No pericardial effusion. There is a moderately large hiatal hernia. There is pul monary vascular congestion and mild interstitial edema. Small bilateral pleural effusions are present. Mild discoid consolidations are seen in the medial bases suggesting atelectasis although correlation clinically for any evidence of pneumonia is recommended. There is no pneumothorax. The bones reveal degenerative changes of the spine and prior sternotomy. - - - - - IMPRESSION: 1. No PE. 2. There is moderately severe atherosclerotic disease with no aortic aneurysm. Coronary artery calcifications are present. 3. Heart size is significantly enlarged. There is pulmonary vascular congestion and mild interstitial edema. Small bilateral pleural effusions are present. Mild discoid consolidations are seen in the medial bases suggesting atelectasis although correlation clinically for any evidence of pneumonia is recommended. 4. Moderately large hiatal hernia. - - - - - All CT scans are performed using dose optimization techniques as appropriate to the performed exam and include at least one of the following: Automated exposure control, adjustment of the mA and/or kV according to size, and the use of iterative reconstruction technique.
[2025-04-13] MEDS: ZOSYN 3.375 GM 3.375 GM in SODIUM CHLORIDE 100ML 100 ML IV SCH (12:30)
[2025-04-13] MEDS: CARDIZEM PO SCH (15:30)
[2025-04-13] MEDS: ATIVAN IVP ONE (21:31)
[2025-04-13 23:12] VITALS: TEMP 97.6
[2025-04-14 01:59] LABS: ABG O2 HGB 76.5 % (95-100); ABG PCO2 46.0 mmHg (35-45); ABG PH 7.43 (7.35-7.45); BEecf 6.2 (-2.0-3.0); HCO3 30.5 (21-28); TCO2 31.9 (19-24)
[2025-04-14] MEDS: BUMEX IVP STA (02:01)
[2025-04-14] MEDS: LOPRESSOR IVP ONE (02:01)
[2025-04-14 02:08] LABS: ABG PO2 45.0 mmHg (85-100)
[2025-04-14] MEDS: ZYPREXA IM ONE (02:23)
--- NOTE | 2025-04-14 02:38 | DCSUM ---
Admission Date Admission Date: 04/11/25 Discharge Date Discharge Date: 04/14/25 Admission Diagnosis Admission Diagnosis: 1. Acute Hypoxic Respiratory Failure in setting of CHFrEF exacerbation 2. Acute on Chronic Systolic HFrEF Exacerbation 3. Hypomagnesemia 4. Allergic Reaction d/t aspercream Discharge Diagnosis Discharge Diagnosis: 1. Acute Hypoxic Respiratory Failure in setting of CHFrEF exacerbation - Worsening 2. Acute on Chronic Systolic HFrEF Exacerbation - 3. Hypomagnesemia - Resolved, now 2.2 4. Allergic Reaction d/t aspercream - Unchanged rash 5. Afib RVR - Unchanged 6. COPD - 3L at baseline 7. Urinary Retention - english anchored 8. Hospital Acquired Pneumonia - covered with zosyn due to recent hospitalization and history of COPD, sputum culture, legionella, strep pneumo, and MRSA ordered Hospital Provider Hospital Provider: WENDIE PALACIOS, [facility] Primary Care Physician Primary Care Physician: LEYDI VERNON APRN Summary of History and Physical Summary of History and Physical: 85 yo female with pmh with Afib, CHF, Chronic Respiratory Failure on 3L at baseline, DM2 presented to the ER with complaints of worsening shortness of breath and rash. States her arthritis was acting up and had her son put Aspercreme on her back and she rubbed it on her chest as well. Diffuse red, itchy rash later showed up after application. Denies any reaction previously. O2 sat was also 85% and was requiring 6L in ER. Receiving 2 nebs and steroids. She was then able to be weaned down to 4L. BNP elevated >4000, new pleural effusions present on x-ray as well as atelectasis vs pneumonia. Mag was found to be 0.5. States she has had some swelling in BLE but mildly improves with elevation. Denies any fever or cough. Of note, patient was hospitalized at [facility] the beginning of March for Afib. Had difficulties getting her rate controlled. Attempted cardioversion x 2 without success. Finally was able to be rate controlled with cardizem and had been doing well. Echo on 03/08 showed EF 41-45%. [facility] has scheduled repeat in June after Afib is better controlled. No pleural effusions noted on xray at that time. Admitted to med/surg inpatient. Hospital Course Subjective: Initially began treating patient for acute hypoxic respiratory failure due to chf exacerbation due to note of new pleural effusions on xray compared to last xray on 03/18. Started with lasix 40 mg Q8H IVP and 1800 mL fluid restriction. Magnesium was replaced and up to 2.2 this morning. Macular rash to back and chest due to aspercream prior to admission. Treated with solu-medrol 40 mg Q8H, pepcid 20 mg IV BID, and benadryl 25 mg Q6H with minimal response. Patient had minimal urine output on 04/13 early am and sats in mid to upper 80s, and was given dose of 1 mg bumex IVP. Had 400 mL out following. Then around 6 am patient went into afib RVR rate up to 140s. Given dose of IV cardizem with minimal response and was then started on gtt. Tolerated well throughout the day. Checked CTA to r/o other etiologies. Showed pulmonary vascular congestion, small pleural effusions, and questionable atelectasis vs pneumonia. Due to severe COPD, condition, and recent hospitalization 1 month ago, covered with zosyn. Sputum culture, MRSA, legionella, and strep pneumo ordered. As of around 2100 HR was staying in 100s-110s range dropping to 80s at times on 10 mg/hr and 90 mg oral doses Q6H while attempting to wean off gtt. She was anxious and restless at that time. Ativan 0.5 mg IVP given. RN contacted provider around 0130 and patient sats were in low 80s and HR staying in 130s despite being on gtt. ABG obtained showing PO2 in 45. PCO2 46. pH 7.43. on 6L NC. Placed on NRB and requiring 15L at this time. Confused and pulling off equipment. Dose of zyprexa 5 mg IM given. Lopressor 5 mg IVP given for HR and has improved to 100s-120s. RN to max out cardizem gtt at this time and requiring 15L NRB to keep sats 90-92%. Son contacted and updated on condition. Patient is to remain full code. Contacted [facility] - no critical care beds available Contacted [facility] - spoke with Dr. Katz, hospitalist. Requesting intubation for stabilization prior to transfer and call back with status update following pending acceptance for higher level of care. Dr. Pereira - ER provider performed intubation and patient tolerated procedure well. 6.[address], Chest xray obtained to confirm placement. Started on propofol and fentanyl gtt for sedation. Accepting provider Dr. Katz at [facility]. Appearance: Alert HEENT: MMM, Supple and No JVD CVS: No Rubs and Other (irregular rhythm, tachycardia) Abdomen: Soft, Non-Tender and No Distention Respiratory: Other (diminished, clear to auscultation) Extremities: Other (+2 pitting edema to BLE) Vital Signs: Most Recent Vital Signs Temperature 97.6 F 04/13/25 23:00 Temperature Source Temporal Artery Scan 04/13/25 23:00 Temperature Source Infrared 04/11/25 12:01 Pulse Rate 111 H 04/14/25 02:00 Respiratory Rate 35 H 04/14/25 02:00 Blood Pressure 180/94 H 04/14/25 02:00 Blood Pressure Mean 122 04/14/25 02:00 Blood Pressure Left Arm 132/82 04/11/25 17:38 Blood Pressure Location Left Arm 04/14/25 02:00 Blood Pressure Position Supine 04/14/25 02:00 O2 Sat by Pulse Oximetry 85 L 04/14/25 02:00 Oxygen Delivery Method Nasal Cannula 04/14/25 02:00 Oxygen Flow Rate 5 04/14/25 00:00 Height 5 ft 5 in 04/11/25 17:38 Weight 89.6 kg 04/13/25 06:00 Telemetry Type Bedside Monitor 04/14/25 01:00 Telemetry Monitoring Continues 04/14/25 01:00 Irregular Telemetry Rate (Approximate) 110-120 BPM 04/14/25 01:00 Telemetry Heart Rate 89 04/13/25 19:00 Telemetry SPO2 86 L 04/14/25 01:00 EKG QRS Interval 0.05 L 04/14/25 01:00 Telemetry Strip Reading AFIB RVR 04/14/25 01:00 Imaging: CHEST RADIOGRAPH INDICATION: Dyspnea COMPARISON: Chest radiograph(s) 11/26/2024 TECHNIQUE: Frontal chest radiograph(s). 1 view(s) total. FINDINGS: Bibasilar patchy opacities. Small pleural effusions. No pneumothorax. CABG. Aortic atheromatous calcifications. Mild to moderate prominence of the cardiomediastinal cardiomediastinal silhouette stable. The vas are grossly intact. IMPRESSION: Patchy bibasilar opacities may be related to atelectasis and/or pneumonia. Small pleural effusions EXAM: CT ANGIOGRAPHY CHEST HISTORY: Shortness of breath TECHNIQUE: CTA chest with intravenous contrast. PE protocol. Multiplanar images were provided with MIP images and 3-D reconstructions. COMPARISON: None FINDINGS: No pulmonary arterial thromboembolism identified. There is moderately severe atherosclerotic disease with no aortic aneurysm. Coronary artery calcifications are present. Heart size is significantly enlarged. No pericardial effusion. There is a moderately large hiatal hernia. There is pulmonary vascular congestion and mild interstitial edema. Small bilateral pleural effusions are present. Mild discoid consolidations are seen in the medial bases suggesting atelectasis although correlation clinically for any evidence of pneumonia is recommended. There is no pneumothorax. The bones reveal degenerative changes of the spine and prior sternotomy. - - - - - IMPRESSION: 1. No PE. 2. There is moderately severe atherosclerotic disease with no aortic aneurysm. Coronary artery calcifications are present. 3. Heart size is significantly enlarged. There is pulmonary vascular congestion and mild interstitial edema. Small bilateral pleural effusions are present. Mild discoid consolidations are seen in the medial bases suggesting atelectasis although correlation clinically for any evidence of pneumonia is recommended. 4. Moderately large hiatal hernia. Lab Results Last 24 Hours: 04/14/25 04/13/25 04/11/25 01:41 05:52 12:15 WBC 9.22 RBC 4.05 L Hgb 11.7 L Hct 37.7 MCV 93.1 MCH 28.9 MCHC 31.0 L RDW Coeff of Cathy 16.3 H Plt Count 416 Immature Gran % (Auto) 0.9 Neut % (Auto) 89.5 H Lymph % (Auto) 5.6 L Sabine % (Auto) 3.8 Eos % (Auto) 0.1 Baso % (Auto) 0.1 Neut # (Auto) 8.3 H Lymph # (Auto) 0.5 L Sabine # (Auto) 0.4 Eos # (Auto) 0.0 Baso # (Auto) 0.0 Immature Gran # (Auto) 0.1 Puncture Site Rr Base Excess 6.2 H O2 Saturation 82.1 L ABG pH 7.43 ABG pCO2 46.0 H ABG pO2 45.0 L* ABG HCO3 30.5 H ABG Total CO2 31.9 H Dung Test Pos Hemoglobin 0.6 Oxyhemoglobin 76.5 L Carboxyhemoglobin 1.8 H Total Hemoglobin 12.7 O2 Delivery Device Cannula Oxygen Liter Flow 6.00 Sodium 138.1 Potassium 4.31 Chloride 101.4 Carbon Dioxide 28.8 Anion Gap 12.21 BUN 47.9 H Creatinine 1.50 H Estimated GFR (MDRD) 33.00 BUN/Creatinine Ratio 31.93 Glucose 164.8 H Calcium 9.54 Magnesium 2.44 H Total Bilirubin 0.76 AST 29.4 ALT 23.7 Alkaline Phosphatase 54.1 C-Reactive Prot, Quant 16 H Total Protein 6.35 Albumin 3.77 Globulin 2.58 Albumin/Globulin Ratio 1.46 Discharge Instructions Discharge Planning: Discharge Planning > 40 minutes If patient is discharged with left ventricular systolic dysfunction: yes, previously diagnosed. Discharged with a beta christen? Per [facility], avoiding beta blockers due to severe COPD Discharged with an nurys/arb? No, following Cardiology recs. Discharge Medications: Medications at Discharge (Home Meds & RX) cholecalciferol (vitamin D3) 25 mcg (1,000 unit) capsule (Vitamin D3) 1,000 mg PO DAILY 03/01/15 albuterol sulfate 90 mcg/actuation aerosol inhaler 2 puff inhalation Q4-6H PRN Bronchodilation #100 grams 08/11/22 polyethylene glycol 3350 17 gram/dose oral powder (Miralax) 17 g PO QDAY PRN constipation 08/17/22 oxybutynin chloride 10 mg tablet,extended release 24 hr 10 mg PO QDAY 12/12/23 azelastine 205.5 mcg (0.15 %) nasal spray (Astepro Allergy) 1 spray intranasal BID #11 mL 08/13/24 fluticasone propionate 50 mcg/actuation nasal spray,suspension (Flonase Allergy Relief) 1 spray intranasal BID #16 grams 08/13/24 prednisolone acetate 1 % eye drops,suspension 2 drp ophthalmic (eye) BID 11/26/24 buspirone 5 mg tablet 5 mg PO DAILY #7 tabs 11/29/24 citalopram 10 mg tablet 10 mg PO DAILY #7 tabs 11/29/24 citalopram 20 mg tablet 20 mg PO DAILY #4 tabs 11/29/24 ipratropium 0.5 mg-albuterol 3 mg (2.5 mg base)/3 mL nebulization soln 3 ml inhalation QID PRN shortness of breath #180 mL 11/29/24 pantoprazole 40 mg tablet,delayed release 40 mg PO DAILY #30 tabs 12/17/24 pravastatin 80 mg tablet 80 mg PO DAILY #30 tabs 12/17/24 allopurinol 100 mg tablet 200 mg (2 x 100 mg) PO DAILY #60 film 02/11/25 fenofibrate 54 mg tablet 54 mg PO DAILY #30 tabs 02/11/25 metformin 500 mg tablet 500 mg PO DAILY #90 tabs 02/11/25 apixaban 5 mg tablet (Eliquis) 5 mg PO 2XD 04/11/25 bumetanide 1 mg tablet 1 mg PO DAILY 04/11/25 diltiazem HCl 360 mg capsule,extended release 24 hr 360 mg PO Q24H 04/11/25 empagliflozin 10 mg tablet (Jardiance) 10 mg PO DAILY 04/11/25 spironolactone 25 mg tablet 25 mg PO 2XD 04/11/25 tolterodine 4 mg capsule,extended release 24 hr 4 mg PO DAILY 04/11/25 Discharge Plan Discharge Discharge Orders: Discharge Patient (ONCE); Ordered 04/14/25 Ordered By: RAINE KEYES Patient Disposition: TSF SHORT-TRM HOSP 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
[2025-04-14 03:29] LABS: IMMATURE GRANULOCYTE # (AUTO) 0.3 (0.0-1.0); IMMATURE GRANULOCYTE % (AUTO) 1.9 % (0.0-5.0); RDW COEFFICIENT OF VARIATION 16.6 % (11.6-14.8)
[2025-04-14 03:39] LABS: CREATININE 1.92 mg/dL (0.60-1.30)
[2025-04-14] MEDS: VERSED ONE (03:49)
[2025-04-14] MEDS: VERSED IVP STA (03:49)
[2025-04-14] MEDS: AMIDATE IVP ONE (03:55)
[2025-04-14] MEDS: ANECTINE IVP STA ×2 (03:55→04:02)
[2025-04-14] MEDS: DIPRIVAN 1,000 MG/100 ML VIAL 1,000 MG/100 ML INFUS..BTL IV SCH (04:20)
[2025-04-14 04:35] VITALS: RESP 14
[2025-04-14] MEDS: LOPRESSOR ONE (04:40)
[2025-04-14 05:55] VITALS: BP 106/62; PULSE 96
[2025-04-14] MEDS: KETAMINE ONE ×2 (06:06→06:07)
--- NOTE | 2025-04-14 06:07 | DI ---
EXAM: CHEST, 1V AP ONLY HISTORY: sob, tube placement COMPARISON: 04/13/2025 IMPRESSION: Severe multichamber cardiomegaly. Small bilateral pleural effusions. There is central pulmonary vascular congestion with diffuse pulmonary edema. Endotracheal tube well positioned. 2 frontal projection images are provided. The second image shows feeding tube extending into the upper abdomen. This appears well positioned. No pneumothorax.
[2025-04-14] MEDS: SUBLIMAZE IV SCH ×2 (06:10→06:19)
[2025-04-14] MEDS: SODIUM CHLORIDE IV SCH ×2 (06:10→06:19)
[2025-04-14] MEDS: SUBLIMAZE ONE (06:17)
[2025-04-14] MEDS: VERSED IV ONE (06:17)
== END 2025-04-14 05:33 | disposition short-term general hospital (02) | DRG 291 ==
LOC: ED 11:51 → SCU 16:57
PROVIDERS: ADMIT Hospitalist; ATTEND Nurse Practitioner Family